=== PATIENT | female | born 1940 | race Caucasian/White ===

== ENCOUNTER 2024-07-28 21:05 | Observation (INO) | payer MEDICARE, SELFPAY ==
[2024-07-28 21:05] VITALS: BP 189/85; PULSE 95; RESP 16; TEMP 36.6; O2SAT 100; BMI 28.3
--- NOTE | 2024-07-28 21:18 | HMH.EDGENADL ---
Discharge Plan Disposition Patient Disposition: Admitted Clinical Impressions Clinical Impression: Weakness, Hyponatremia Discharge ED Provider: Manoj Lazo Adult HPI General Chief complaint: Weakness Stated complaint: Weakness Time Seen by Provider: 07/28/24 21:17 History of Present Illness HPI narrative: Patient is an 83-year-old past medical history of hypertension, previous brain cancer resection presenting for weakness. Patient said that she typically gets around with a walker but over the last couple of days she has become progressively more weak and said that today when she was trying to reach into her refrigerator she fell backward hitting her head on a table. She is unsure if she had loss of consciousness but does not think she did. She was unable to get up at the time and so she crawled into another room to get to a phone. When she got to a phone she called her family and EMS and EMS was able to get her up and said that she needed a lot of help to walk to the truck. At this time patient said that she is having a headache, but has had no other symptoms. Related Data Home Medications ?Medication ?Instructions ?Recorded ?Confirmed atenolol 50 mg tablet 50 mg PO DAILY 07/28/24 07/28/24 atorvastatin 40 mg tablet 40 mg PO DAILY 07/28/24 07/28/24 cyanocobalamin (vitamin B-12) 1,000 mcg PO DAILY 07/28/24 07/28/24 1,000 mcg tablet ferrous sulfate 325 mg (65 mg 325 mg PO DAILY 07/28/24 07/28/24 iron) tablet (FeroSul) hydrochlorothiazide 25 mg tablet 25 mg PO DAILY 07/28/24 07/28/24 lisinopril 2.5 mg tablet 2.5 mg PO DAILY 07/28/24 07/28/24 metformin 850 mg tablet 850 mg PO BID 07/28/24 07/28/24 omeprazole 40 mg capsule,delayed 40 mg PO DAILY 07/28/24 07/28/24 release Allergies Allergy/AdvReac Type Severity Reaction Status Date / Time Sulfa (Sulfonamide Allergy Intermediate Anaphylaxis Verified 07/28/24 21:35 Antibiotics) clindamycin Allergy Other Verified 07/29/24 00:32 nitrofurantoin (From Allergy Other Verified 07/29/24 00:32 Macrodantin) Penicillins Allergy Hives Verified 07/29/24 00:32 [facility] Disclaimer: The information contained in this section may have been updated after the patient was seen, as this information can be updated by other users. Social History (Updated 07/29/24 @ 00:27 by Orly Sargent RN) Smoking Status: Never smoker alcohol intake: never current occupational status: retired Travel in the last 8 weeks: None Have you lived/traveled outside [place] in past 30 days?: No Contact w/someone who lives/traveled outside [place] past 30 days?: No Exposure to someone with infectious disease in past 14 days?: No Do you have a fever (greater than 100.4 F or 38 C)?: No Have you tested positive for COVID-19: No Exposed to someone with COVID-19 in past 14 days?: No Do you have a sore throat?: No Do you have a cough?: No Do you have any weakness?: Yes Are you experiencing any nausea/vomitting?: No Do you have any diarrhea?: No Are you experiencing any unusual bleeding?: No Do you have any muscle aches/pain?: No Do you have any abdominal pain?: No Are you experiencing loss of taste or smell?: No ROS Obtained: Yes All systems reviewed & no additional complaints except as documented Physical Exam General General appearance: alert Eye Eye exam: Present normal appearance ENT ENT exam: Present normal exam Chest Chest inspection: Present symmetric chest wall rise Respiratory Respiratory exam: Present normal lung sounds bilaterally; Absent respiratory distress Cardiovascular Cardiovascular exam: Present regular rate Abdominal Exam Abdominal exam: Present soft; Absent tenderness, guarding or rebound Extremities Exam Extremities exam: Present full ROM; Absent tenderness Neurological Exam Neurological exam: Present alert, oriented X3 and other (Mild difficulty with speech(chronic), chronic facial droop, cranial nerves otherwise intact, no motor or sensory deficit) Psychiatric Psychiatric exam: Present normal affect Skin Skin exam: Present warm and normal color Medical Decision Making Medical Records Medical records reviewed: Yes I reviewed the patient's medical records. Screening: Per USPSTF and CDC recommendations, given the prevalence of disease in our region, it is our hospital?s policy to screen for HIV and viral Hepatitis for all patients aged 18 and over and those with ongoing risk factors. Yefri Inquiry Pt receiving controlled substance: No Vital Signs: 07/28/24 21:05 07/28/24 23:30 Temperature 97.9 F 97.8 F Temperature Source Oral Oral Pulse Rate 78 Pulse Rate [Left] 95 H Respiratory Rate 16 16 Blood Pressure 162/80 H Blood Pressure [Right Arm] 189/85 H Blood Pressure Mean [Right Arm] 119 02 Sat by Pulse Oximetry 100 Oxygen Delivery Method Room Air Room Air Lab Data Lab Results 07/28/24 21:30: WBC 8.1, RBC 5.09, Hgb 13.3, Hct 39.6, MCV 77.8 L, MCH 26.1 L, MCHC 33.6, RDW 24.8 H, Plt Count 317, MPV 8.9, Neut % (Auto) 61.5, Lymph % (Auto) 28.3, [place] % (Auto) 7.5, Eos % (Auto) 1.7, Baso % (Auto) 0.6, Neut # (Auto) 5.0, Lymph # (Auto) 2.3, [place] # (Auto) 0.6, Eos # (Auto) 0.1, Baso # (Auto) 0.1, PT 10.0 L, INR 0.88 L, APTT 27.9, Sodium 127 L, Potassium 4.4, Chloride 87 L, Carbon Dioxide 29, Anion Gap 15.4 H, BUN 16, Creatinine 0.60, Estimated Creat Clear 48, Estimated GFR 96, Est GFR ( Amer) 116, Glucose 202 H, Calcium 10.0, Total Bilirubin 0.4, AST 36, ALT 27, Alkaline Phosphatase 180 H, Total Creatine Kinase 152 H, Troponin I 0.02, Total Protein 7.1, Albumin 4.5, Globulin 2.6, Albumin/Globulin Ratio 1.7, Lipase 92, Urine Sodium 54.0, HIV Ag/Ab Combo Qual Negative 07/28/24 21:30 07/28/24 21:30 Orders (Tests/Meds): ED MEDICATIONS Generic Name Dose Route Start Last Admin Trade Name Freq PRN Reason Stop Dose Admin Acetaminophen 650 mg 07/28/24 23:31 Acetaminophen 325mg Tab PO 08/27/24 23:30 Q4HP PRN Fever or Mild Pain (1-3) Hydrocodone Bitart/Acetaminophen 1 tab 07/28/24 23:31 Hydrocodone/Apap 5/325 Mg Tablet PO 08/27/24 23:30 Q4HP PRN Mild to Moderate Pain (1-6) Sodium Chloride 1,000 mls @ 100 mls/hr 07/28/24 23:45 07/28/24 23:55 Sod Chlor 0.9% 1000ml Bag IV 08/27/24 23:44 100 mls/hr .Q10H HYUN Administration Ibuprofen 400 mg 07/28/24 23:31 Ibuprofen 400 Mg Tablet PO 08/27/24 23:30 Q6HP PRN Headache Insulin Human Lispro 0 unit 07/29/24 06:00 Humalog 100 Units/Ml 10ml Vial (Ssi) SUBCUT 08/28/24 05:59 ACHS HYUN Protocol Ondansetron HCl 4 mg 07/28/24 23:31 Ondansetron 4mg/2ml Vial IV 08/27/24 23:30 Q8HP PRN Nausea Sodium Chloride 10 ml 07/28/24 21:36 Sodium Chloride 0.9% 10ml Flush Syringe IV 08/27/24 21:35 NEEDED PRN Maintain IV Site Sodium Chloride 10 ml 07/28/24 23:31 Sodium Chloride 0.9% 10ml Flush Syringe IV 08/27/24 23:30 NEEDED PRN Maintain IV Site Discontinued Medications Generic Name Dose Route Start Last Admin Trade Name Freq PRN Reason Stop Dose Admin Lactated Ringer's 500 mls @ 999 mls/hr 07/28/24 22:56 07/28/24 23:48 Lactated Ringer's 500ml IV 07/28/24 23:26 Not Given .Q31M ONE ORDERS Category Date Time Status CT bony pelvis Stat Cat Scan 07/28/24 21:[address] cervical spine wo con Stat Cat Scan 07/28/24 21:[address] head/brain wo con Stat Cat Scan 07/28/24 21:[address] lumbar spine wo con Stat Cat Scan 07/28/24 21:[address] thoracic spine wo con Stat Cat Scan 07/28/24 21:37 Completed Consult to Case Management [CONS] Routine Cons 07/29/24 09:00 Active XR chest portable Stat Exams 07/28/24 21:37 Completed XR pelvis 1-2V Stat Exams 07/28/24 21:37 Completed Activated Partial Thrombo Time Stat Lab 07/28/24 21:30 Completed Basic Metabolic Panel AMLAB Lab 07/29/24 06:00 Ordered Basic Metabolic Panel AMLAB Lab 07/30/24 06:00 Ordered Basic Metabolic Panel AMLAB Lab 07/31/24 06:00 Ordered Basic Metabolic Panel AMLAB Lab 08/01/24 06:00 Ordered Basic Metabolic Panel AMLAB Lab 08/02/24 06:00 Ordered Complete Blood Count Auto Diff AMLAB Lab 07/29/24 06:00 Ordered Complete Blood Count Auto Diff AMLAB Lab 07/30/24 06:00 Ordered Complete Blood Count Auto Diff AMLAB Lab 07/31/24 06:00 Ordered Complete Blood Count Auto Diff AMLAB Lab 08/01/24 06:00 Ordered Complete Blood Count Auto Diff AMLAB Lab 08/02/24 06:00 Ordered Complete Blood Count Auto Diff Stat Lab 07/28/24 21:30 Completed Comprehensive Metabolic Panel Stat Lab 07/28/24 21:30 Completed Creatine Kinase Stat Lab 07/28/24 21:30 Completed HIV Combo Stat Lab 07/28/24 21:30 Completed Hep C Ab with Reflex to RNA Stat Lab 07/28/24 21:30 Received Lipase Stat Lab 07/28/24 21:30 Completed Prothrombin Time INR Stat Lab 07/28/24 21:30 Completed Sodium,Urine Random Routine Lab 07/28/24 21:30 Completed Troponin I Q3H Lab 07/29/24 00:45 Ordered Troponin I Q3H Lab 07/29/24 03:45 Ordered Troponin I Stat Lab 07/28/24 21:30 Completed UA [Urinalysis and Microscopic] Stat Lab 07/28/24 23:33 Ordered Urinalysis and Microscopic Routine Lab 07/28/24 23:37 Ordered ECG Request Stat Y 07/28/24 21:38 Ordered Medical Decision Narrative: In summary, this 83-year-old female presents to the emergency department today with generalized weakness. On initial evaluation patient is in no acute distress, hemodynamically stable and well-appearing. Patient has been becoming progressively more weak and have concern as she likely lives alone and had a fall today.. Differential diagnosis includes but is not limited to cranial hemorrhage, spinal injury, pelvic fracture, electrolyte abnormality, infection. Based on these concerns, I ordered labs and imaging. ECG personally interpreted demonstrates right bundle branch block, no ST elevations, sinus rhythm. Patient received lactated Ringer's, for treatment. Labs personally reviewed demonstrate hyponatremia, hypochloremia, hyperglycemia, mildly elevated creatinine kinase. XR personally interpreted demonstrates no dislocation or fracture. CT imaging personally interpreted demonstrate no dislocation or fracture, no intracranial hemorrhage. I had an interactive discussion with hospital medicine team and patient was admitted to their. On reassessment hemodynamically stable alert in no acute distress. Patient was admitted to the hospital medicine service due to multiple electrolyte abnormalities and concern for failure to thrive. Critical Care Critical Care Time Critical Care Time: No
--- NOTE | 2024-07-28 21:37 | CT_ITS ---
PROCEDURE INFORMATION: Exam: CT Thoracic Spine Without Contrast Exam date and time: 07/28/2024 10:00 PM Age: 83 years old Clinical indication: Injury or trauma; Additional info: Trauma, critical injury suspected TECHNIQUE: Imaging protocol: Computed tomography of the thoracic spine without contrast. Radiation optimization: All CT scans at this facility use at least one of these dose optimization techniques: automated exposure control; mA and/or kV adjustment per patient size (includes targeted exams where dose is matched to clinical indication); or iterative reconstruction. COMPARISON: CT CERVICAL SPINE WO CON 07/28/2024 9:58 PM FINDINGS: Bones/joints: No acute fracture. Normal alignment. Multilevel degenerative disc disease with multilevel disc height narrowing and endplate sclerosis. Multilevel mild anterior bridging osteophyte formation. Soft tissues: Unremarkable. IMPRESSION: No acute fracture or malalignment of the thoracic spine
--- NOTE | 2024-07-28 21:37 | XR_ITS ---
PROCEDURE INFORMATION: Exam: XR Chest Exam date and time: 07/28/2024 10:07 PM Age: 83 years old Clinical indication: Injury or trauma; Blunt trauma (contusions or hematomas) TECHNIQUE: Imaging protocol: Radiologic exam of the chest. Views: 1 view. COMPARISON: CT THORACIC SPINE WO CON 07/28/2024 10:00 PM FINDINGS: Lungs: Elevated right hemidiaphragm. No consolidation. Pleural spaces: Unremarkable. No pleural effusion. No pneumothorax. Heart/Mediastinum: Unremarkable. No cardiomegaly. Bones/joints: Unremarkable. IMPRESSION: No acute findings.
--- NOTE | 2024-07-28 21:37 | CT_ITS ---
PROCEDURE INFORMATION: Exam: CT Head Without Contrast Exam date and time: 07/28/2024 9:56 PM Age: 83 years old Clinical indication: Injury or trauma; Additional info: Trauma, critical injury suspected TECHNIQUE: Imaging protocol: Computed tomography of the head without contrast. Radiation optimization: All CT scans at this facility use at least one of these dose optimization techniques: automated exposure control; mA and/or kV adjustment per patient size (includes targeted exams where dose is matched to clinical indication); or iterative reconstruction. COMPARISON: CT HEAD/BRAIN WO CON 07/28/2024 9:56 PM FINDINGS: Brain: No intracranial hemorrhage. Generalized atrophic changes of the ventricles and subarachnoid spaces. Chronic small-vessel ischemic changes noted. No mass, mass effect or midline shift. Intracranial atherosclerotic changes are noted. Encephalomalacia in the inferior right cerebellum adjacent to the craniotomy site noted. Cerebral ventricles: See Brain finding. Paranasal sinuses: Visualized sinuses are unremarkable. No fluid levels. Mastoid air cells: Visualized mastoid air cells are well aerated. Bones: Craniotomy of the right posteroinferior occipital bone. Bony structures otherwise intact. No skull fracture identified. Soft tissues: Unremarkable. IMPRESSION: No acute intracranial abnormality. Chronic changes as above.
--- NOTE | 2024-07-28 21:37 | CT_ITS ---
PROCEDURE INFORMATION: Exam: CT Pelvis Without Contrast, Skeleton Exam date and time: 07/28/2024 10:05 PM Age: 83 years old Clinical indication: Injury or trauma; Additional info: Trauma, critical injury suspected TECHNIQUE: Imaging protocol: Computed tomography of the pelvis without contrast. Exam focused on the skeleton. Radiation optimization: All CT scans at this facility use at least one of these dose optimization techniques: automated exposure control; mA and/or kV adjustment per patient size (includes targeted exams where dose is matched to clinical indication); or iterative reconstruction. COMPARISON: CT LUMBAR SPINE WO CON 07/28/2024 10:03 PM FINDINGS: Bones/joints: Degenerative changes in the lower lumbar spine. No acute fracture. No dislocation. Soft tissues: Unremarkable. IMPRESSION: No evidence for pelvic fracture
--- NOTE | 2024-07-28 21:37 | CT_ITS ---
PROCEDURE INFORMATION: Exam: CT Cervical Spine Without Contrast Exam date and time: 07/28/2024 9:58 PM Age: 83 years old Clinical indication: Injury or trauma; Additional info: Trauma, critical injury suspected TECHNIQUE: Imaging protocol: Computed tomography of the cervical spine without contrast. Radiation optimization: All CT scans at this facility use at least one of these dose optimization techniques: automated exposure control; mA and/or kV adjustment per patient size (includes targeted exams where dose is matched to clinical indication); or iterative reconstruction. COMPARISON: CT CERVICAL SPINE WO CON 07/28/2024 9:58 PM FINDINGS: Bones: No acute fracture. Normal alignment. Multilevel disc osteophyte complexes and facet joint arthropathy resulting in varying degrees of neuroforaminal and central canal narrowing. Lungs: Lung apices are normal. Soft tissues: Unremarkable. IMPRESSION: No acute findings.
--- NOTE | 2024-07-28 21:37 | CT_ITS ---
PROCEDURE INFORMATION: Exam: CT Lumbar Spine Without Contrast Exam date and time: 07/28/2024 10:03 PM Age: 83 years old Clinical indication: Injury or trauma; Additional info: Trauma, critical injury suspected TECHNIQUE: Imaging protocol: Computed tomography of the lumbar spine without contrast. Radiation optimization: All CT scans at this facility use at least one of these dose optimization techniques: automated exposure control; mA and/or kV adjustment per patient size (includes targeted exams where dose is matched to clinical indication); or iterative reconstruction. COMPARISON: CT THORACIC SPINE WO CON 07/28/2024 10:00 PM FINDINGS: Bones/joints: No acute fracture. Normal alignment. Degenerative changes at L4-L5 and L5-S1 with vacuum phenomenon, disc height narrowing endplate sclerosis and facet joint arthropathy resulting in neuroforaminal and central canal narrowing. Degenerative changes also at L1-L2 and T12-L1 with vacuum phenomenon. Soft tissues: Unremarkable. IMPRESSION: No acute fracture or malalignment of the lumbar spine. Multilevel degenerative disc disease
--- NOTE | 2024-07-28 21:37 | XR_ITS ---
PROCEDURE INFORMATION: Exam: XR Pelvis Exam date and time: 07/28/2024 10:07 PM Age: 83 years old Clinical indication: Injury or trauma; Blunt trauma (contusions or hematomas); Bilateral; Pelvic region TECHNIQUE: Imaging protocol: Radiologic exam of the pelvis. Views: 1 or 2 view. COMPARISON: CT BONY PELVIS 07/28/2024 10:05 PM FINDINGS: Bones/joints: Unremarkable. No acute fracture. Soft tissues: Unremarkable. IMPRESSION: No acute findings.
--- NOTE | 2024-07-28 21:38 | ECG_ITS ---
APPROVED REPORT Exam: Resting ECG HR:84 bpm ECG Measurements Heart Rate 84 AXES MO 186 P 66 QRSd 134 QRS -48 QT 381 T 34 QTc 422 Conclusion SINUS RHYTHM RIGHT BUNDLE BRANCH BLOCK [120+ ms QRS DURATION, UPRIGHT V1, 40+ ms S IN I/aVL/V4/V5/V6] LEFT ANTERIOR FASCICULAR BLOCK [QRS AXIS <= -45, QR IN I, RS IN II] POSSIBLE SEPTAL MYOCARDIAL INFARCTION , PROBABLY OLD [30 ms Q WAVE IN V1/V2] ABNORMAL ECG UNCONFIRMED REPORT Electronically signed by : SUNIL BALDWIN, 07/29/2024 06:48:53
[2024-07-28 21:46] LABS: Basophils # 0.1 K/mm3 (0-0.2); Basophils % 0.6 % (0.1-2.0); Eosinophils # 0.1 K/mm3 (0.0-0.4); Eosinophils % 1.7 % (0.1-12.0); Hematocrit 39.6 % (37.0-47.0); Hemoglobin 13.3 g/dL (12.2-16.2); Lymphocytes # 2.3 K/mm3 (0.7-4.5); Lymphocytes % 28.3 % (10-50); Mean Corpuscular HGB Conc 33.6 g/dL (31.8-35.4); Mean Corpuscular Hemoglobin 26.1 pg (27.0-31.2); Mean Corpuscular Volume 77.8 fl (81-99); Mean Platelet Volume 8.9 fl (7.4-10.4); Monocytes # 0.6 K/mm3 (0.1-1.0); Monocytes % 7.5 % (1.7-9.3); Neutrophils % 61.5 % (37.0-80.0); Platelet Count 317 K/mm3 (142-424); Red Blood Count 5.09 M/mm3 (4.20-5.40); Red Cell Distribution Width 24.8 % (11.5-17.5); White Blood Count 8.1 K/mm3 (4.8-10.8)
--- NOTE | 2024-07-28 21:51 | PC.NURSE ---
pt went to rad.
[2024-07-28 21:56] LABS: Albumin Level 4.5 g/dl (3.5-5.0); Chloride 87 mmol/L (98-107); Potassium 4.4 mmoL/L (3.5-5.1); Sodium 127 mmol/L (136-145)
[2024-07-28 21:59] LABS: Alanine Aminotransferase 27 U/L (12-78); Albumin/Globulin Ratio 1.7 (1.1-1.8); Alkaline Phosphatase 180 U/L (38-126); Anion Gap 15.4 mEq/L (5-15); Aspartate Amino Transferase 36 U/L (14-36); Bilirubin,Total 0.4 mg/dl (0.2-1.3); Blood Urea Nitrogen 16 mg/dl (7-17); Carbon Dioxide 29 mmol/L (22.0-30.0); Creatinine Clearance Estimated 48 mL/min (50-200); Estimated Glomerular Filt Rate 96 ml/min (>60); GFR (African American) 116 ML/MIN (>60); Globulin 2.6 g/dL (1.3-3.2); Total Protein,Serum 7.1 g/dl (6.3-8.2)
[2024-07-28 22:00] LABS: Glucose 202 mg/dl (74-100); Lipase 92 U/L (23-300)
[2024-07-28 22:05] LABS: Activated Partial Thrombo Time 27.9 seconds (22.8-30.6); INR 0.88 (0.9-1.1)
[2024-07-28 22:11] LABS: Troponin I 0.02 ng/ml (0.00-0.034)
[2024-07-28 23:17] LABS: HIV Combo NEGATIVE (Negative)
[2024-07-28 23:30] VITALS: BP 162/80; PULSE 78; RESP 16; TEMP 36.6; O2SAT 98
[2024-07-28 23:30] LABS: Creatine Kinase 152 U/L (30-135)
--- NOTE | 2024-07-28 23:38 | P.HP_ITS ---
History of Present Illness *Admission Date: 07/28/24 *Reason for visit:: weakness *History of present illness: This is an 83-year-old female who has a past medical history significant for hypertension, meningioma with resection, diabetes [id number]-efoulpndq, hyperlipidemia, nephrolithiasis, paralyzed trachea, and iron deficiency anemia who presents after she had a mechanical ground-level fall and weakness. Due to patient's symptoms, she presented to the emergency room for evaluation. While in the emergency room, CT scan of the head, CT scan of the thoracic vertebrae, cervical spine, and pelvis were without any acute findings. Patient's serum sodium was 127 and she continues to have persistent weakness. As a result, patient has been admitted for further management. During my evaluation of the patient, patient states that she normally ambulates with a walker. She voices that she has had increasing weakness over the past couple days. While attempting to go to the refrigerator, patient fell backwards hitting her head. She is denying any syncopal episode but is currently complaining of a frontal lobe headache. Patient states she had to crawl to her house to get to the phone to call family. Patient had no obvious trauma to the head. She mentions that she has had a prior brain resection due to a meningioma which has left her face with some asymmetry and generalized weakness. Daughter at the bedside states she was at a nursing facility, yet her sisters took her out the nursing facilities patient states she is also being followed as an outpatient with speech pathology. She states that they do not recommend that she has thickened liquids that she is able to drink or liquids without a straw. She is currently denying any lightheadedness, dizziness, diplopia, blurred vision, unilateral upper or lower extremity weakness, lateral gaze deficit, slu rring of speech, chest pain, shortness of breath, dyspnea, nausea, vomiting, or diarrhea. Patient does states she has had decreased p.o. intake. Additional pertinent vitals obtained include a blood pressure of 189/85 (improved to 131/44), INR 0.88, sodium 127, chloride of 87, blood glucose of 202, alkaline phosphate of 180, and CPK 152. [facility] Disclaimer: The information contained in this section may have been updated after the patient was seen, as this information can be updated by other users. Social History Smoking Status: Never smoker alcohol intake: never current occupational status: retired Travel in the last 8 weeks: None Review of Systems Review of Systems Review of systems:: pertinent systems reviewed and negative unless documented below Constitutional Constitutional: Reports frequent falls, Reports headache(s) and Reports weakness Eyes Eyes: Reports system reviewed and no additional complaints, except as documented ENT Ears, Nose, Mouth, and Throat: Reports system reviewed and no additional complaints, except as documented and Reports headache(s) *Cardiovascular Cardiovascular: Reports system reviewed and no additional complaints, except as documented *Respiratory Respiratory: Reports system reviewed and no additional complaints, except as documented *Gastrointestinal Gastrointestinal: Reports system reviewed and no additional complaints, except as documented *Genitourinary Genitourinary: Reports urinary incontinence *Musculoskeletal Musculoskeletal: Reports muscle weakness Integumentary/Breasts Skin/Breast: Reports system reviewed and no additional complaints, except as documented *Neurologic Neurologic: Reports frequent falls, Reports headache(s) and Reports weakness Psychiatric Psychiatric: Reports system reviewed and no additional complaints, except as documented Endocrine Endocrine: Reports system reviewed and no additional complaints, except as documented Hematologic/Lymphatic Hematologic/Lymphatic: Reports system reviewed and no additional complaints, except as documented Allergic/Immunologic Allergic/Immunologic: Reports system reviewed and no additional complaints, except as documented Meds Home Medications and Allergies Home Medications ?Medication ?Instructions ?Recorded ?Confirmed ?Type atenolol 50 mg tablet 50 mg PO DAILY 07/28/24 07/28/24 History atorvastatin 40 mg tablet 40 mg PO DAILY 07/28/24 07/28/24 History cyanocobalamin (vitamin B-12) 1,000 mcg PO DAILY 07/28/24 07/28/24 History 1,000 mcg tablet ferrous sulfate 325 mg (65 mg 325 mg PO DAILY 07/28/24 07/28/24 History iron) tablet (FeroSul) hydrochlorothiazide 25 mg tablet 25 mg PO DAILY 07/28/24 07/28/24 History lisinopril 2.5 mg tablet 2.5 mg PO DAILY 07/28/24 07/28/24 History metformin 850 mg tablet 850 mg PO BID 07/28/24 07/28/24 History omeprazole 40 mg capsule,delayed 40 mg PO DAILY 07/28/24 07/28/24 History release New Prescriptions to Start Prescriptions: Allergies Allergy/AdvReac Type Severity Reaction Status Date / Time Sulfa (Sulfonamide Allergy Intermediate Anaphylaxis Verified 07/28/24 21:35 Antibiotics) Exam Data for Last 24 hours Vital signs and Labs for Last 24 Hours: Temp Pulse Resp BP Pulse Ox O2 Del Method 97.9 F 95 H 16 189/85 H 100 Room Air 07/28/24 21:05 07/28/24 21:05 07/28/24 21:05 07/28/24 21:05 07/28/24 21:05 07/28/24 21:05 Laboratory Results - last 24 hr 07/28/24 21:30: WBC 8.1, RBC 5.09, Hgb 13.3, Hct 39.6, MCV 77.8 L, MCH 26.1 L, MCHC 33.6, RDW 24.8 H, Plt Count 317, MPV 8.9, Neut % (Auto) 61.5, Lymph % (Auto) 28.3, [place] % (Auto) 7.5, Eos % (Auto) 1.7, Baso % (Auto) 0.6, Neut # (Auto) 5.0, Lymph # (Auto) 2.3, [place] # (Auto) 0.6, Eos # (Auto) 0.1, Baso # (Auto) 0.1, PT 10.0 L, INR 0.88 L, APTT 27.9, Sodium 127 L, Potassium 4.4, Chloride 87 L, Carbon Dioxide 29, Anion Gap 15.4 H, BUN 16, Creatinine 0.60, Estimated Creat Clear 48, Estimated GFR 96, Est GFR ( Amer) 116, Glucose 202 H, Calcium 10.0, Total Bilirubin 0.4, AST 36, ALT 27, Alkaline Phosphatase 180 H, Total Creatine Kinase 152 H, Troponin I 0.02, Total Protein 7.1, Albumin 4.5, Globulin 2.6, Albumin/Globulin Ratio 1.7, Lipase 92, HIV Ag/Ab Combo Qual Negative I & O for Last 24 hours: Intake & Output 07/25/24 07/26/24 07/27/24 07/28/24 23:59 23:59 23:59 23:59 Weight 70.307 kg Constitutional Constitutional: no acute distress and cooperative *Routine HEENT Exam Head: Present normocephalic Eye: Present EOMI ENT: Present mucous membranes moist *Routine Neck Exam Neck: Present supple, full ROM and trachea midline *Routine Respiratory Exam Respiratory: Present CTA bilaterally, able to speak in complete sentences and symmetric chest movement *Routine Cardiovascular Exam Cardiovascular: Present RRR, Normal S1 and Normal S2 *Routine Abdominal Exam Abdominal: Present soft and normoactive bowel sounds *Routine Rectal Exam Rectal:: deferred *Routine Genitalia Exam Genitalia:: deferred *Routine Extremities Exam Extremities: Present full ROM and normal capillary refill Routine Back/Spine/Pelvis Exam Back/Spine: Present full ROM *Routine Skin Exam Skin: Present intact, dry and warm *Routine Neurological Exam Neurological: Present oriented X3, CN II-XII intact, moving all extremities and normal speech Comments: Patient has asymmetry of smile which is normal for her Routine Psychiatric Exam Psychiatric: Present normal affect, normal thought process, cooperative, good insight and good judgment H&P: Result Impressions This is an 83-year-old female who is presenting with generalized weakness found to have a subtherapeutic sodium. Patient is mildly dehydrated. Prior history of meningioma resection. Patient lives alone and there is a significant concern for safety. Patient is amenable to rehab if necessary Assessment and Plan *Assessment and plan (1) Hyponatremia: Start date: 07/28/24 Start time: 23:51 Status: Acute Category: Medical Code(s): E87.1 - Hypo-osmolality and hyponatremia Plan: -Corrected serum sodium is 129 -Will give normal saline at 100 mL an hour -Will monitor serum sodium and would not allow to increase more than 8 mill equivalents in 24 hours times span -Obtain urine sodium (2) Dehydration: Start date: 07/28/24 Start time: 23:52 Status: Acute Category: Medical Code(s): E86.0 - Dehydration Plan: -Normal saline at 100 mL an hour -Monitor intake and output (3) Weakness: Start date: 07/28/24 Start time: 23:53 Status: Acute Category: Medical Code(s): R53.1 - Weakness Plan: -No current acute pathology seen on spine images (thoracic/cervical) -Currently denied any saddle paresthesia -Denying any loss of bowel or bladder -Will have physical therapy work with patient -Occupational Therapy -Consult upper caser for possible home health or rehab placement (4) Falls: Start date: 07/28/24 Start time: 23:54 Status: Acute Category: Medical Code(s): R29.6 - Repeated falls Plan: -Place patient on fall precautions (5) KORI (iron deficiency anemia): Start date: 07/28/24 Start time: 23:54 Status: Acute Qualifiers: Iron deficiency anemia type: inadequate dietary iron intake Qualified Code(s): D50.8 - Other iron deficiency anemias Category: Medical Code(s): D50.9 - Iron deficiency anemia, unspecified Plan: -Will continue oral iron supplementation (6) Hyperglycemia: Start date: 07/28/24 Start time: 23:54 Status: Acute Category: Medical Code(s): R73.9 - Hyperglycemia, unspecified Plan: -Most likely in the setting of type 2 diabetes -Will hold patient's metformin in the event she needs a CT scan with contrast -Sliding scale insulin before meals and at bedtime (7) Elevated liver enzymes: Start date: 07/28/24 Start time: 23:55 Status: Acute Category: Medical Code(s): R74.8 - Abnormal levels of other serum enzymes Plan: -Can follow-up as outpatient with primary care physician Plan Admit patient to the MedSurg unit in a observation status; patient will require 24 to 48 hours in hospital If weakness does not improve or worsens will consider MRI of the brain with and without Up to chair twice daily SCD to bilateral lower extremity Fall precautions Will straight cath x 1 obtain urinalysis/urine culture Cardiac/1800 ADA diet CBC/BMP daily Patient CPK was mildly elevated will obtain repeat in the a.m. 400 mg of ibuprofen every 6 hours as needed headache 5 mg [place] p.o. every 4 hours as needed moderate pain 4 mg Zofran IV push to 8 hours. Nausea vomiting I will discuss this case with attending physician Dr. Ma and the look for tomorrow put
--- NOTE | 2024-07-28 23:49 | PC.NURSE ---
pt arrived to floor via stretcher from ED at 2348.
[2024-07-28] MEDS: 0.9 % SODIUM CHLORIDE 1000ML 1,000 ML 100 ML IV (23:55)
[2024-07-29] VITALS: BP 151/76; PULSE 85; RESP 18; TEMP 36.6; O2SAT 95
[2024-07-29 01:57] LABS: Troponin I 0.03 ng/ml (0.00-0.034)
[2024-07-29 04:00] VITALS: BP 131/65; PULSE 82; RESP 17; TEMP 36.6; O2SAT 94; BMI 27.2
[2024-07-29 04:36] LABS: Troponin I 0.02 ng/ml (0.00-0.034)
[2024-07-29 05:36] LABS: Microscopic, Urine URINE MICROSCOPIC (MICROSCOPIC)
[2024-07-29 05:39] LABS: Appearance,Urine CLEAR (Clear); Bilirubin,Urine Negative (Negative); Blood, Urine Negative (Negative); Color,Urine YELLOW (Yellow); Glucose,Urine (UA) Negative (Negative); Ketones,Urine Negative (Negative); Leukocyte Esterase,Urine Negative (Negative); Nitrate,Urine Negative (Negative); PH,Urine 6.5 (5.0-8.5); Protein,Urine Negative (Negative); Urobilinogen,Urine 0.2 EU/dl (0.2)
[2024-07-29 05:48] LABS: Bacteria,Urine Trace /lpf
[2024-07-29] MEDS: IBUPROFEN 400 MG TABLET PO (05:56)
[2024-07-29 06:09] LABS: POC Glucose,Bedside 138 (70-110)
[2024-07-29 07:34] LABS: Basophils # 0.1 K/mm3 (0-0.2); Basophils % 0.8 % (0.1-2.0); Eosinophils # 0.1 K/mm3 (0.0-0.4); Eosinophils % 1.7 % (0.1-12.0); Lymphocytes # 2.5 K/mm3 (0.7-4.5); Lymphocytes % 32.9 % (10-50); Mean Corpuscular Hemoglobin 26.4 pg (27.0-31.2); Mean Corpuscular Volume 77.8 fl (81-99); Monocytes # 0.6 K/mm3 (0.1-1.0); Monocytes % 8.3 % (1.7-9.3); Neutrophils # 4.2 K/mm3 (1.8-7.8); Neutrophils % 55.9 % (37.0-80.0); Platelet Count 290 K/mm3 (142-424); Red Cell Distribution Width 24.4 % (11.5-17.5); White Blood Count 7.6 K/mm3 (4.8-10.8)
[2024-07-29 07:53] LABS: Anion Gap 10.1 mEq/L (5-15); Blood Urea Nitrogen 14 mg/dl (7-17); Calcium 9.8 mg/dl (8.4-10.2); Carbon Dioxide 27 mmol/L (22.0-30.0); Chloride 95 mmol/L (98-107); Creatinine Clearance Estimated 46 mL/min (50-200); Estimated Glomerular Filt Rate 96 ml/min (>60); GFR (African American) 116 ML/MIN (>60); Glucose 132 mg/dl (74-100); Potassium 4.1 mmoL/L (3.5-5.1); Sodium 128 mmol/L (136-145)
[2024-07-29 08:00] VITALS: BP 135/69; PULSE 77; RESP 18; TEMP 36.6; O2SAT 96
[2024-07-29 09:05] LABS: Creatine Kinase 109 U/L (30-135)
--- NOTE | 2024-07-29 09:20 | HMH.PHAINT1 ---
Pharmacy Intervention Comments: MEDICATION RECONCILIATION COMPLETE USING EXTERNAL PHARMACY FILL HISTORY.
[2024-07-29 09:36] LABS: Hemoglobin 11.9 g/dL (12.2-16.2)
[2024-07-29 10:11] LABS: Iron 63 ug/dL (37-170)
[2024-07-29 10:20] LABS: Total Iron Binding Capacity 342 ug/dL (265-497)
[2024-07-29] MEDS: 0.9 % SODIUM CHLORIDE 1000ML 1,000 ML 100 ML IV (10:35)
[2024-07-29 10:46] VITALS: BP 150/68; BP 166/107; BP 205/98; PULSE 78; PULSE 88
[2024-07-29 10:47] LABS: Ferritin 16.3 ng/ml (11.1-264)
[2024-07-29 10:54] LABS: Coronavirus 19, PCR Not Detected (NotDetected); Human Rhinovirus Not Detected (NotDetected); Influenza A, PCR Not Detected (NotDetected); Influenza B, PCR Not Detected (NotDetected); Respiratory Syncytial Virus Not Detected (NotDetected)
[2024-07-29 11:01] LABS: Vitamin B12 748 pg/mL (239-931)
[2024-07-29] MEDS: humaLOG 100 UNITS/ML 10ML VIAL (SSI) SUBCUT ×2 (11:46→16:33)
[2024-07-29 12:00] LABS: POC Glucose,Bedside 164 (70-110)
[2024-07-29 12:51] LABS: Folate 6.43 ng/mL
--- NOTE | 2024-07-29 15:53 | EXP.PN ---
Subjective *Date: 07/29/24 *Time: 17:05 Exam Data for Last 24 hours Vital signs and Labs for Last 24 Hours: Temp Pulse Resp BP Pulse Ox O2 Del Method 98 F 78 18 150/68 H 96 Room Air 07/29/24 08:00 07/29/24 10:46 07/29/24 08:00 07/29/24 10:46 07/29/24 08:00 07/29/24 15:00 Laboratory Results - last 24 hr 07/28/24 21:30: WBC 8.1, RBC 5.09, Hgb 13.3, Hct 39.6, MCV 77.8 L, MCH 26.1 L, MCHC 33.6, RDW 24.8 H, Plt Count 317, MPV 8.9, Neut % (Auto) 61.5, Lymph % (Auto) 28.3, [place] % (Auto) 7.5, Eos % (Auto) 1.7, Baso % (Auto) 0.6, Neut # (Auto) 5.0, Lymph # (Auto) 2.3, [place] # (Auto) 0.6, Eos # (Auto) 0.1, Baso # (Auto) 0.1, PT 10.0 L, INR 0.88 L, APTT 27.9, Sodium 127 L, Potassium 4.4, Chloride 87 L, Carbon Dioxide 29, Anion Gap 15.4 H, BUN 16, Creatinine 0.60, Estimated Creat Clear 48, Estimated GFR 96, Est GFR ( Amer) 116, Glucose 202 H, Calcium 10.0, Total Bilirubin 0.4, AST 36, ALT 27, Alkaline Phosphatase 180 H, Total Creatine Kinase 152 H, Troponin I 0.02, Total Protein 7.1, Albumin 4.5, Globulin 2.6, Albumin/Globulin Ratio 1.7, Lipase 92, Urine Sodium 54.0, HIV Ag/Ab Combo Qual Negative 07/29/24 00:55: Troponin I 0.03 07/29/24 01:45: Urine Color Yellow, Urine Appearance Clear, Urine pH 6.5, Ur Specific [place] 1.010, Urine Protein Negative, Urine Glucose (UA) Negative, Urine Ketones Negative, Urine Blood Negative, Urine Nitrate Negative, Urine Bilirubin Negative, Urine Urobilinogen 0.2, Ur Leukocyte Esterase Negative, Urine RBC None, Urine WBC None, Ur Squamous Epith Cells None, Urine Bacteria Trace 07/29/24 03:45: Troponin I 0.02 07/29/24 05:52: POC Glucose 138 H 07/29/24 07:15: WBC 7.6, RBC 4.50, Hgb 11.9 L D, Hct 35.0 L, MCV 77.8 L, MCH 26.4 L, MCHC 34.0, RDW 24.4 H, Plt Count 290, MPV 9.0, Neut % (Auto) 55.9, Lymph % (Auto) 32.9, [place] % (Auto) 8.3, Eos % (Auto) 1.7, Baso % (Auto) 0.8, Neut # (Auto) 4.2, Lymph # (Auto) 2.5, [place] # (Auto) 0.6, Eos # (Auto) 0.1, Baso # (Auto) 0.1, Sodium 128 L, Potassium 4.1, Chloride 95 L, Carbon Dioxide 27, Anion Gap 10.1, BUN 14, Creatinine 0.60, Estimated Creat Clear 46, Estimated GFR 96, Est GFR ( Amer) 116, Glucose 132 H D, Calcium 9.8, Total Creatine Kinase 109 D 07/29/24 07:25: Iron 63, TIBC 342, Iron Saturation 18.44044, Ferritin 16.3, Vitamin B12 748, Folate 6.43, TSH 3.40 07/29/24 10:49: SARS-CoV-2 (PCR) Not detected, Influenza Type A (PCR) Not detected, Influenza Type B (PCR) Not detected, RSV (PCR) Not detected, Rhinovirus (PCR) Not detected 07/29/24 11:06: POC Glucose 164 H I & O for Last 24 hours: Intake & Output 07/26/24 07/27/24 07/28/24 07/29/24 23:59 23:59 23:59 23:59 Intake Total 500 / 500 1103 / 1103 Output Total 450 / 450 Balance 500 / 50 653 / 653 Weight 70.307 kg 67.188 kg Constitutional Constitutional: no acute distress *Routine HEENT Exam Head: Present normocephalic Eye: Present EOMI and PERRL ENT: Present mucous membranes moist *Routine Neck Exam Neck: Present supple; Absent lymphadenopathy *Routine Respiratory Exam Respiratory: Present CTA bilaterally *Routine Cardiovascular Exam Cardiovascular: Present RRR *Routine Abdominal Exam Abdominal: Present soft and normoactive bowel sounds; Absent tenderness *Routine Extremities Exam Extremities: Absent cyanosis, clubbing or edema Comments: Motor strength 4/5 in bilateral upper and lower extremities. *Routine Skin Exam Skin: Present warm; Absent rash *Routine Neurological Exam Neurological: Present alert and oriented X3 Assessment and Plan *Assessment and plan (1) Hyponatremia: Status: Acute Category: Medical Code(s): E87.1 - Hypo-osmolality and hyponatremia (2) Weakness: Status: Acute Category: Medical Code(s): R53.1 - Weakness (3) KORI (iron deficiency anemia): Status: Acute Qualifiers: Iron deficiency anemia type: inadequate dietary iron intake Qualified Code(s): D50.8 - Other iron deficiency anemias Category: Medical Code(s): D50.9 - Iron deficiency anemia, unspecified (4) Falls: Status: Acute Category: Medical Code(s): R29.6 - Repeated falls (5) Weakness: Status: Acute Category: Medical Code(s): R53.1 - Weakness (6) Dehydration: Status: Acute Category: Medical Code(s): E86.0 - Dehydration (7) Hyponatremia: Status: Acute Category: Medical Code(s): E87.1 - Hypo-osmolality and hyponatremia Plan Sia Dorsey is a 83-year-old female who was admitted for worsening generalized weakness and recurrent falls at home. #Generalized weakness #Recurrent falls ? Patient reports 1 week onset of progressive generalized weakness, with 2 falls at home recently. ? She states usually uses a walker at home but has been having increasing difficulty ambulating. ? Cervical, lumbar, thoracic spine CTs are unremarkable. No focal neurological deficits. No signs of cauda equina syndrome. ? Other than hyponatremia 128 and mild iron deficiency anemia, other workup has been unremarkable including CBC, CMP, TFTs, folate, B12, UA, respiratory panel, CXR. ? Follow-up blood cultures. ? PT/OT consulted, pending recommendations. #Hyponatremia ? Initial sodium 127, improved to 128 today. Takes hydrochlorothiazide. Is also not been eating that well. ? Will hold hydrochlorothiazide, encourage oral intake. ? Will consider serum, urine osmolality test if minimal improvement. Low suspicion for SIADH at this time. #Iron deficiency anemia ? Ferritin low normal at 16.3. Other iron studies normal. ? Will give IV Venofer. ? Continue home ferrous sulfate. ? MiraLAX daily. #Hypertension ? Resume home lisinopril, hold hydrochlorothiazide in the setting of hyponatremia. #History of meningioma s/p resection #Chronic right-sided facial droop ? Patient has had a chronic right-sided facial droop since meningioma resection. DNI DVT prophylaxis: Lovenox 40 mg
[2024-07-29 16:00] VITALS: BP 159/87; PULSE 80; RESP 18; TEMP 36.8; O2SAT 96
[2024-07-29 16:14] LABS: POC Glucose,Bedside 289 (70-110)
[2024-07-29] MEDS: METFORMIN 850 MG PO (16:33)
[2024-07-29] MEDS: ENOXAPARIN 40MG/0.4ML SYRINGE 40 MG SUBCUT (16:33)
[2024-07-29] MEDS: LISINOPRIL 2.5MG TABLET 2.5 MG PO (16:47)
--- NOTE | 2024-07-29 18:10 | PC.NURSE ---
pt resting supine in bed. a&ox4. tolerating RA with sats >90%. no complaints of pain this shift. home medications ordered. orthostatic bp taken and recorded. fsbs @1100 164 and @1630 289. treated per sep. no needs at this time. call light within reach.
[2024-07-29 20:00] VITALS: BP 189/83; PULSE 82; RESP 18; TEMP 36.8; O2SAT 96
[2024-07-29] MEDS: ATORVASTATIN 40MG TABLET 40 MG PO (20:24)
[2024-07-29] MEDS: PANTOPRAZOLE 40MG TABLET 40 MG PO (20:24)
[2024-07-30] VITALS: BP 159/93; PULSE 78; RESP 17; TEMP 36.8; O2SAT 96
[2024-07-30 04:00] VITALS: BMI 26.0
[2024-07-30 05:34] LABS: POC Glucose,Bedside 107 (70-110)
[2024-07-30 05:34] LABS: POC Glucose,Bedside 98 (70-110)
[2024-07-30] MEDS: IBUPROFEN 400 MG TABLET PO (05:51)
[2024-07-30 08:00] VITALS: BP 120/90; PULSE 62; RESP 18; TEMP 36.8; O2SAT 95
[2024-07-30 08:16] LABS: Basophils # 0.1 K/mm3 (0-0.2); Basophils % 1.2 % (0.1-2.0); Eosinophils # 0.2 K/mm3 (0.0-0.4); Eosinophils % 2.8 % (0.1-12.0); Hematocrit 35.6 % (37.0-47.0); Hemoglobin 11.6 g/dL (12.2-16.2); Lymphocytes # 2.3 K/mm3 (0.7-4.5); Lymphocytes % 35.1 % (10-50); Mean Corpuscular HGB Conc 32.6 g/dL (31.8-35.4); Mean Corpuscular Hemoglobin 25.9 pg (27.0-31.2); Mean Corpuscular Volume 79.5 fl (81-99); Mean Platelet Volume 9.8 fl (7.4-10.4); Monocytes # 0.6 K/mm3 (0.1-1.0); Monocytes % 8.6 % (1.7-9.3); Neutrophils # 3.4 K/mm3 (1.8-7.8); Platelet Count 307 K/mm3 (142-424); Red Blood Count 4.48 M/mm3 (4.20-5.40); White Blood Count 6.5 K/mm3 (4.8-10.8)
[2024-07-30 08:23] LABS: Red Cell Distribution Width 25.3 % (11.5-17.5)
[2024-07-30] MEDS: METFORMIN 850 MG PO ×2 (08:32→17:08)
[2024-07-30] MEDS: IRON SUCROSE COMPLEX 200 MG in 0.9 % SODIUM CHLORIDE 100 ML 220 MG IV (08:32)
[2024-07-30] MEDS: FERROUS SULFATE 325MG TABLET 325 MG PO (08:33)
[2024-07-30] MEDS: ENOXAPARIN 40MG/0.4ML SYRINGE 40 MG SUBCUT (08:33)
[2024-07-30] MEDS: LISINOPRIL 10MG TABLET 10 MG PO (08:33)
[2024-07-30 08:37] LABS: Albumin Level 3.5 g/dl (3.5-5.0); Chloride 100 mmol/L (98-107); Sodium 133 mmol/L (136-145)
[2024-07-30 08:40] LABS: Alanine Aminotransferase 23 U/L (12-78); Albumin/Globulin Ratio 1.5 (1.1-1.8); Alkaline Phosphatase 124 U/L (38-126); Aspartate Amino Transferase 30 U/L (14-36); Bilirubin,Total 0.3 mg/dl (0.2-1.3); Blood Urea Nitrogen 11 mg/dl (7-17); Calcium 9.2 mg/dl (8.4-10.2); Carbon Dioxide 27 mmol/L (22.0-30.0); Creatinine Clearance Estimated 44 mL/min (50-200); Estimated Glomerular Filt Rate 96 ml/min (>60); GFR (African American) 116 ML/MIN (>60); Globulin 2.4 g/dL (1.3-3.2); Glucose 111 mg/dl (74-100); Total Protein,Serum 5.9 g/dl (6.3-8.2)
[2024-07-30 08:41] LABS: Magnesium 1.6 mg/dl (1.6-2.3)
--- NOTE | 2024-07-30 10:49 | HMH.PTEV ---
Physical Therapy Evaluation Rehab PT IP Evaluation Start: 07/29/24 09:00 Freq: ONCE Status: Active Protocol: Document 07/30/24 10:44 GRACE (Rec: 07/30/24 10:48 [facility] [id number]) Subjective/History History History 83-year-old female who has a past medical history significant for hypertension, meningioma with resection, diabetes [id number]-[id number] , hyperlipidemia, nephrolithiasis, paralyzed trachea, and iron deficiency anemia who presents after she had a mechanical ground-level fall and weakness. She reports she lives alone, uses a RW for all ambulation, and has no WILLARD the home. Subjective Subjective She reports she feels weak and had difficulty getting to the [facility] [place] with nsg earlier. She does agree to mobility assessment. Rehab PT IP Eval Objective Appearance Patient Behavior Appropriate Patient Orientation Person,Place,Time Difficulty following instructions none Speech Pattern Clear Ambulation Patient Able to Ambulate Yes Ambulation Observation IP General Gait Pattern Observation Wide Based Gait,Shuffling Step Ambulation Distance (feet) 8 Ambulation Assistive Device Rolling Walker Ambulation Ability Minimal x 1 (25% assist) Balance Ability to Arise Able, uses arms to help Sitting Balance Steady, safe Standing Balance Unsteady Dynamic Sitting Balance Ability Good Dynamic Standing Balance Ability Poor Transfers Bed Transfer Ability Minimal x 1 (25% assist) Chair Transfer Ability Minimal x 1 (25% assist) Sit to Stand Bed Transfer Ability Minimal x 1 (25% assist) Sit to Stand Chair Transfer Ability Minimal x 1 (25% assist) Rehab PT IP prob,goals,plan Problems Date of Evaluation: 07/30/24 PT IP Problems Bed Mobility,Transfers,Gait Rehab Potential Rehab Potential Good Plan PT Intervention Plan Bed Mobility,Transfers,Gait, Therapeutic Exercise PT Plan Frequency Daily Duration LOS Discharge Goals Bed Transfer Ability Contact Guard/Hand Hold Sit to Stand Chair Transfer Ability Contact Guard/Hand Hold Ambulation Assistive Device Large Base Quad Cane Ambulation Distance (feet) 25 Discharge Plan PT Discharge Plan Pt is currently most appropriate for rehab placement once medically stable for d/c. Skilled therapy is indicated to improve transfer ability, improve balance, and improve ambulation in order to return pt to [facility]. PHYSICIAN CERTIFICATION: I certify the specified therapy services for Sia Granado are required, authorized, and reviewed every 30 days.
--- NOTE | 2024-07-30 11:01 | HMH.OTEV ---
OT Inpatient Evaluation Rehab OT IP Evaluation Start: 07/29/24 09:00 Freq: ONCE Status: Active Protocol: Document 07/30/24 10:57 [facility] (Rec: 07/30/24 11:01 [facility] [id number]) Rehab OT IP Assessment Subjective History Pt oriented x 3 on arrival. Pt agreeable to engage in therapy evaluation. Pt is an 83-year-old female who has a past medical history significant for hypertension, meningioma with resection, diabetes ulz-izpvuyh-[id number] , hyperlipidemia, nephrolithiasis, paralyzed trachea, and iron deficiency anemia who presents after she had a mechanical ground-level fall and weakness. She reports she lives alone, uses a RW for all functional transfers, and has no WILLARD the home. Pt also claims to be independent with all ADLs, but is only able to complete sponge baths. Her family assists with all IADLs. She is able to cook small simple meals independently. She no longer drives. [ End ] Subjective Pt reporting she has not been up since being admitted other than one [place] [facility] [place] Pt expressed she had difficulty with this transfer. Objective Patient Orientation Person,Place,Birthday Right Upper Extremity Gross ROM Min Limitation <25% Left Upper Extremity Gross ROM Min Limitation <25% Shoulder ROM Limitations Muscle Weakness Elbow ROM Limitations Muscle Weakness Wrist Limitations of Range of Motion Muscle Weakness Bed Mobility bed mobility-scooting,bed mobility - supine/sit Assist Level Minimal x 1 (25% assist) Transfer Training Sit/Stand Transfer Assist Level Minimal x 2 (25% assist) Chair Transfer Ability Minimal x 2 (25% assist) Chair Transfer Technique Sit to/from Ambulatory Chair Transfer Assistive Devices Rolling Walker Lower Body Dressing Ability Moderate Assistance Rehab OT IP prob,goals,plan Problems Date of Evaluation: 07/30/24 OT IP Problems Bed Mobility,Transfers,Balance ,Self care,Safety Rehab Potential Rehab Potential Good Equipment Needs Assistive Devices Rolling / Wheeled Walker Plan OT intervention Plan Bed Mobility,Transfers,Balance ,Self care,Safety,Therapeutic Exercise OT Plan Frequency Daily Duration LOS Discharge Goals Bed Mobility Ability Standby Assistance Sit to Stand Chair Transfer Ability Supervision/Stand by Chair Transfer Ability Contact Guard/Hand Hold Chair Transfer Technique Sit to/from Ambulatory Chair Transfer Assistive Devices Rolling Walker Feeding Ability Assist with Tray Set Up Lower Body Dressing Ability Minimal Assistance Upper Body Dressing Ability Standby Assistance Bathing Ability Minimal Assistance Performing Toilet Hygiene Ability Minimal Assistance Overall Commode/Toilet Transfer Ability Contact Guard Commode/Toilet Transfer Technique Sit to/from Ambulatory Commode/Toilet Transfer Assistive Toilet Rails,Grab Bars Devices Oral Care Assist Standby Assistance Discharge Plan OT Discharge Plan Pt will continue to be seen for OT services while at [facility]. Pt would benefit most from short term rehab at SNF following discharge. Continued skilled therapy is important in order for patient to improve strength, safety, endurance, ADL independence, and functional transfers to reach PLOF. Eval Complexity Eval Charge Codes 06298 - Moderate Complexity PHYSICIAN CERTIFICATION: I certify the specified therapy services for Sia Granado are required, authorized, and reviewed every 30 days.
--- NOTE | 2024-07-30 11:14 | SW/DCPLANNER ---
Addendum entered by [facility] 07/31/24 13:22: I have updated patient's family in regards to discharge plans to [facility] level of care today. Addendum entered by [facility] 07/31/24 11:09: Patient has been accepted/approved per Carmen castellanos/ [facility]. Addendum entered by [facility] 07/31/24 10:36: [facility] is able to accept this patient and precert will be started today. I will update patient/family and MD. Addendum entered by [facility] 07/30/24 12:47: Per patient's request I did contact other daughter (Teressa [phone]) and discuss discharge planning. Patient and family members agreeable for information to be faxed to [facility] at this time. Addendum entered by [facility] 07/30/24 12:08: I was able to make contact with patient. Patient is agreeable to SNF at [facility]: information will be faxed today. I will continue to follow up with patient and MD. Original Note: I attempter to contact patient this AM regarding plans once medically stable for discharge. No answer at this time VM left. I did speak with daughter via phone whom stated patient did go to [facility] in the past for rehab, transitioned to Assisted Living but then family signed her out and took her home. PT/OT evaluated patient and recommended SNF level of care at discharge. I will continue to attempt contact with patient. Discharge date is unknown at this time.
[2024-07-30] MEDS: humaLOG 100 UNITS/ML 10ML VIAL (SSI) SUBCUT (11:30)
[2024-07-30 12:00] VITALS: BP 131/65; PULSE 82; RESP 18; TEMP 36.5; O2SAT 94
[2024-07-30 15:57] LABS: POC Glucose,Bedside 112 (70-110)
[2024-07-30 15:57] LABS: POC Glucose,Bedside 201 (70-110)
[2024-07-30 16:00] VITALS: BP 126/73; PULSE 82; RESP 20; TEMP 36.6; O2SAT 97
[2024-07-30 17:03] LABS: POC Glucose,Bedside 99 (70-110)
--- NOTE | 2024-07-30 17:04 | P.PN_ITS ---
Subjective *Date: 07/30/24 *Time: 17:04 Interval history: Doing well today, working with physical therapy who recommended SNF placement. Pleasant and conversational. Exam Data for Last 24 hours Vital signs and Labs for Last 24 Hours: Temp Pulse Resp BP Pulse Ox O2 Del Method 97.9 F 82 20 126/73 97 Room Air 07/30/24 16:00 07/30/24 16:00 07/30/24 16:00 07/30/24 16:00 07/30/24 16:00 07/30/24 16:00 Laboratory Results - last 24 hr 07/29/24 20:23: POC Glucose 98 07/30/24 00:41: POC Glucose 107 07/30/24 05:48: POC Glucose 112 H 07/30/24 06:28: WBC 6.5, RBC 4.48, Hgb 11.6 L, Hct 35.6 L, MCV 79.5 L, MCH 25.9 L, MCHC 32.6, RDW 25.3 H*, Plt Count 307, MPV 9.8, Neut % (Auto) 52.0, Lymph % (Auto) 35.1, [place] % (Auto) 8.6, Eos % (Auto) 2.8, Baso % (Auto) 1.2, Neut # (Auto) 3.4, Lymph # (Auto) 2.3, [place] # (Auto) 0.6, Eos # (Auto) 0.2, Baso # (Auto) 0.1, Sodium 133 L, Potassium 4.0, Chloride 100, Carbon Dioxide 27, Anion Gap 10.0, BUN 11, Creatinine 0.60, Estimated Creat Clear 44, Estimated GFR 96, Est GFR ( Amer) 116, Glucose 111 H, Calcium 9.2, Magnesium 1.6, Total Bilirubin 0.3, AST 30, ALT 23, Alkaline Phosphatase 124, Total Protein 5.9 L, Albumin 3.5 D, Globulin 2.4, Albumin/Globulin Ratio 1.5 07/30/24 11:24: POC Glucose 201 H 07/30/24 16:55: POC Glucose 99 I & O for Last 24 hours: Intake & Output 07/27/24 07/28/24 07/29/24 07/30/24 23:59 23:59 23:59 23:59 Intake Total 500 / 500 1823 / 2473 1310 / 1310 Output Total 450 / 450 450 / 450 Balance 500 / 50 1373 / 2023 860 / 860 Weight 70.307 kg 67.188 kg 64.274 kg Microbiology Reports for the Last 24 Hours: Microbiology 07/29/24 11:15 Blood Blood Culture - Preliminary NO GROWTH AFTER 24 HOURS 07/29/24 11:00 Blood Blood Culture - Preliminary NO GROWTH AFTER 24 HOURS Constitutional Constitutional: no acute distress *Routine HEENT Exam Head: Present normocephalic Eye: Present EOMI and PERRL ENT: Present mucous membranes moist *Routine Neck Exam Neck: Present supple; Absent lymphadenopathy *Routine Respiratory Exam Respiratory: Present CTA bilaterally *Routine Cardiovascular Exam Cardiovascular: Present RRR *Routine Abdominal Exam Abdominal: Present soft and normoactive bowel sounds; Absent tenderness *Routine Extremities Exam Extremities: Absent cyanosis, clubbing or edema Comments: Motor strength 4/5 in bilateral upper and lower extremities. *Routine Skin Exam Skin: Present warm; Absent rash *Routine Neurological Exam Neurological: Present alert and oriented X3 Assessment and Plan *Assessment and plan (1) Hyponatremia: Status: Acute Category: Medical Code(s): E87.1 - Hypo-osmolality and hyponatremia (2) Weakness: Status: Acute Category: Medical Code(s): R53.1 - Weakness (3) KORI (iron deficiency anemia): Status: Acute Qualifiers: Iron deficiency anemia type: inadequate dietary iron intake Qualified Code(s): D50.8 - Other iron deficiency anemias Category: Medical Code(s): D50.9 - Iron deficiency anemia, unspecified (4) Falls: Status: Acute Category: Medical Code(s): R29.6 - Repeated falls (5) Weakness: Status: Acute Category: Medical Code(s): R53.1 - Weakness (6) Dehydration: Status: Acute Category: Medical Code(s): E86.0 - Dehydration (7) Hyponatremia: Status: Acute Category: Medical Code(s): E87.1 - Hypo-osmolality and hyponatremia Plan Sia Dorsey is a 83-year-old female who was admitted for worsening generalized weakness and recurrent falls at home. #Generalized weakness #Recurrent falls ? Patient reports 1 week onset of progressive generalized weakness, with 2 falls at home recently prior to admission. ? She states usually uses a walker at home but has been having increasing difficulty ambulating. ? Cervical, lumbar, thoracic spine CTs are unremarkable. No focal neurological deficits. No signs of cauda equina syndrome. ? Other than initial hyponatremia 128 (improved to 133) and mild iron deficiency anemia, other workup has been unremarkable including CBC, CMP, TFTs, folate, B12, UA, respiratory panel, CXR. ? Blood cultures NGTD 24 hours. ? PT/OT consulted, recommended SNF. Case management assisting with placement. #Hyponatremia ? Initial sodium 127, improved to 133 today. Takes hydrochlorothiazide. Had also not been eating well prior to admission. ? Will hold hydrochlorothiazide, encourage oral intake. ? Will consider serum, urine osmolality test if minimal improvement. Low suspicion for SIADH at this time. #Iron deficiency anemia ? Ferritin low normal at 16.3. Other iron studies normal. ? Will give IV Venofer. ? Continue home ferrous sulfate. MiraLAX daily. #Hypertension ? Resume home lisinopril, hold hydrochlorothiazide in the setting of hyponatremia. #History of meningioma s/p resection #Chronic right-sided facial droop ? Patient has had a chronic right-sided facial droop since meningioma resection. DNI DVT prophylaxis: Lovenox 40 mg
[2024-07-30 20:00] VITALS: BP 136/78; PULSE 86; RESP 17; TEMP 36.7; O2SAT 95
[2024-07-30] MEDS: ATORVASTATIN 40MG TABLET 40 MG PO (21:30)
[2024-07-30] MEDS: PANTOPRAZOLE 40MG TABLET 40 MG PO (21:30)
[2024-07-31] VITALS: BP 142/76; PULSE 88; RESP 19; TEMP 36.7; O2SAT 95
[2024-07-31 04:00] VITALS: BP 159/93; PULSE 90; RESP 16; TEMP 36.8; O2SAT 92; BMI 26.6
[2024-07-31 06:03] LABS: POC Glucose,Bedside 118 (70-110)
[2024-07-31 07:24] LABS: Basophils # 0.1 K/mm3 (0-0.2); Basophils % 0.9 % (0.1-2.0); Eosinophils # 0.2 K/mm3 (0.0-0.4); Eosinophils % 3.4 % (0.1-12.0); Hematocrit 35.9 % (37.0-47.0); Hemoglobin 11.7 g/dL (12.2-16.2); Lymphocytes # 2.2 K/mm3 (0.7-4.5); Lymphocytes % 32.7 % (10-50); Mean Corpuscular HGB Conc 32.6 g/dL (31.8-35.4); Mean Corpuscular Hemoglobin 26.3 pg (27.0-31.2); Mean Corpuscular Volume 80.7 fl (81-99); Mean Platelet Volume 9.3 fl (7.4-10.4); Monocytes # 0.6 K/mm3 (0.1-1.0); Monocytes % 8.9 % (1.7-9.3); Neutrophils # 3.7 K/mm3 (1.8-7.8); Neutrophils % 53.8 % (37.0-80.0); Platelet Count 308 K/mm3 (142-424); Red Blood Count 4.45 M/mm3 (4.20-5.40); White Blood Count 6.8 K/mm3 (4.8-10.8)
[2024-07-31 07:28] LABS: Red Cell Distribution Width 25.6 % (11.5-17.5)
[2024-07-31 07:36] LABS: Alanine Aminotransferase 21 U/L (12-78); Albumin Level 3.7 g/dl (3.5-5.0); Anion Gap 9.2 mEq/L (5-15); Aspartate Amino Transferase 25 U/L (14-36); Bilirubin,Total 0.5 mg/dl (0.2-1.3); Blood Urea Nitrogen 16 mg/dl (7-17); Calcium 9.8 mg/dl (8.4-10.2); Carbon Dioxide 25 mmol/L (22.0-30.0); Chloride 103 mmol/L (98-107); Creatinine Clearance Estimated 45 mL/min (50-200); Estimated Glomerular Filt Rate 96 ml/min (>60); GFR (African American) 116 ML/MIN (>60); Glucose 121 mg/dl (74-100); Magnesium 1.7 mg/dl (1.6-2.3); Potassium 4.2 mmoL/L (3.5-5.1); Sodium 133 mmol/L (136-145); Total Protein,Serum 5.8 g/dl (6.3-8.2)
[2024-07-31 07:37] LABS: Albumin/Globulin Ratio 1.8 (1.1-1.8); Alkaline Phosphatase 112 U/L (38-126); Globulin 2.1 g/dL (1.3-3.2)
[2024-07-31 08:00] VITALS: BP 157/76; PULSE 88; RESP 16; TEMP 36.5; O2SAT 95
[2024-07-31] MEDS: ENOXAPARIN 40MG/0.4ML SYRINGE 40 MG SUBCUT (08:58)
[2024-07-31] MEDS: METFORMIN 850 MG PO (08:58)
[2024-07-31] MEDS: FERROUS SULFATE 325MG TABLET 325 MG PO (08:58)
[2024-07-31] MEDS: LISINOPRIL 10MG TABLET 10 MG PO (08:58)
[2024-07-31] MEDS: humaLOG 100 UNITS/ML 10ML VIAL (SSI) SUBCUT (11:12)
--- NOTE | 2024-07-31 11:17 | PC.NURSE ---
pt states she had a very large BM on 5
[2024-07-31 11:21] LABS: POC Glucose,Bedside 157 (70-110)
--- NOTE | 2024-07-31 11:52 | HMH.SLDYSPHA ---
Speech & Language Evaluation Speech/Language Dysphagia Evaluation Start: 07/31/24 11:19 Freq: ONCE Status: Active Protocol: Document 07/31/24 11:19 MAXIMILIAN (Rec: 07/31/24 11:52 ECLARK laptop) Co-signed By ST Lana Dysphagia Assess/Goals/Plan Assessment Date of Evaluation: 07/31/24 Evaluation Type Initial Certification Assessment/Problems dysphagia per MD order Does Patient Qualify for Service No Qualify/Failure Comment Based on clinical observations made throughout clinical bedside swallow evaluation and pt interview, further skilled speech therapy services are not warranted at this time d/t no overt s/sx of aspiration and adequate mastication and manipulation of bolus. Recommendations PHYSICIAN CERTIFICATION: The specified therapy services are required, authorized, and reviewed every 30 days. Diet Recommendations Mechanical Soft Liquid Type Recommendations Normal/Thin SL Swallow Guidelines Alt bite w/sip thru meal, Standard Aspiration Prec.,Eat at slow rate,Oral Care Education,Reflux precautions Dysphagia Swallow Precautions/Strategies Sitting Upright (90 deg),No Straw,Small Bites and Sips, Alternate Liquids/Solids Plan Pt/Guardian verbally ack understanding Yes of dx/prognosis/goals G -code Required No Education Instructions provided [employer] discussed clinical observations made throughout bedside CSE, diet recommendations, and aspiration precautions/ compensatory strategies with pt, nursing, car pincher, and CM , all of which expressed understanding. Pt/Caregiver able to recall information Able to recall/restate Reinforcement needed No Speech & Language HPI History Present Illness Description of Patient Problem Mrs. Granado is an 83 y.o. female presenting to [facility] after she had a mechanical ground- level fall and weakness. Her PMHx includes hypertension, meningioma with resection, diabetes [id number]-[id number] , hyperlipidemia, nephrolithiasis, paralyzed trachea, and iron deficiency anemia. Mrs. Granado states that she has had a prior brain resection due to a meningioma . She presents with some facial asymmetry and generalized weakness. Mrs. Granado states that she has been seen by multiple [employer]'s in the past, but is not currently receiving services. She is on a regular/thin liquid diet in home environment. Her chest x-ray and head CT revealed no acute findings. Pt/Caregiver Concerns No concerns Rehab Services Assessed Speech therapy Is this evaluation r/t stroke? No Therapy History Seen by other SL therapists Yes Who/When/Recommendations Mrs. Granado received inpatient and outpatient speech therapy services at [facility]. She also received inpatient speech therapy services with [facility]. She states they recommended regular/thin liquid diet with aspiration precautions. She is not currently receiving skilled speech therapy services. Other Specialists? No General Information General Current Food Consistancy Mechanical Soft,Thin Liquids Dentition Good Dentition Facial Symmetry Patient Baseline Patient Orientation Person,Place,Time,Situation Ability to Follow Directions Excellent Communication Ability No Impairment Dysphagia:Food Presentation Evaluation Food Type Pureed,Mechanical Soft,Regular ,Liquid,Pudding Dysphagia Evaluation Regular Food Difficulty chewing Behavior Response Dysphagia Evaluation Summary A clinical bedside swallow evaluation was administered this morning with pt sitting upright in chair and with adequate dentition. Pt presents with right facial droop and generalized weakness , which is pt's baseline. Pt explained to [employer] about prior speech therapy services that she had received and stated she would not be agreeable to further speech therapy services if needed. SUPER[employer] administered the following consistencies: thin liquid ( water) via cup, pudding, puree (applesauce), mechanical soft (cookie), and regular (tommie cracker). All bolus presentations were administered x2 to assess for consistency and fatigue. Pt exhibited no overt s/sx of aspiration on any consistency trialed. Pt was observed to have prolonged mastication and manipulation of bolus on regular food trials 2' weakness. SUPER[employer] recommended chopped mechanical soft diet/ thin liquids w/ no straw and pt was agreeable. SU[employer] educated pt on aspiration precautions/ compensatory strategies. Stroke Dysphagia Assessment PHYSICIAN CERTIFICATION: I certify the specified therapy services for Sia Granado are required, authorized, and reviewed every 30 days.
--- NOTE | 2024-07-31 12:50 | EXP.DC.SUM ---
General Admission date:: 07/28/24 Discharge date: 07/31/24 HPI HPI HPI: This is an 83-year-old female who has a past medical history significant for hypertension, meningioma with resection, diabetes [id number]-[id number], hyperlipidemia, nephrolithiasis, paralyzed trachea, and iron deficiency anemia who presents after she had a mechanical ground-level fall and weakness. Due to patient's symptoms, she presented to the emergency room for evaluation. While in the emergency room, CT scan of the head, CT scan of the thoracic vertebrae, cervical spine, and pelvis were without any acute findings. Patient's serum sodium was 127 and she continues to have persistent weakness. As a result, patient has been admitted for further management. During my evaluation of the patient, patient states that she normally ambulates with a walker. She voices that she has had increasing weakness over the past couple days. While attempting to go to the refrigerator, patient fell backwards hitting her head. She is denying any syncopal episode but is currently complaining of a frontal lobe headache. Patient states she had to crawl to her house to get to the phone to call family. Patient had no obvious trauma to the head. She mentions that she has had a prior brain resection due to a meningioma which has left her face with some asymmetry and generalized weakness. Daughter at the bedside states she was at a nursing facility, yet her sisters took her out the nursing facilities patient states she is also being followed as an outpatient with speech pathology. She states that they do not recommend that she has thickened liquids that she is able to drink or liquids without a straw. She is currently denying any lightheadedness, dizziness, diplopia, blurred vision, unilateral upper or lower extremity weakness, lateral gaze deficit, slurring of speech, chest pain, shortness of breath, dyspnea, nausea, vomiting, or diarrhea. Patient does states she has had decreased p.o. intake. Additional pertinent vitals obtained include a blood pressure of 189/85 (improved to 131/44), INR 0.88, sodium 127, chloride of 87, blood glucose of 202, alkaline phosphate of 180, and CPK 152. Hospital Course Hospital Course Hospital Course: Sia Dorsey is a 83-year-old female who was admitted for worsening generalized weakness and recurrent falls at home. Worked with therapy during admission. Recommend placement. Graciously excepted by Sabas Martin. Medically stable to discharge to rehab for further care. Problems addressed as follows: #Generalized weakness #Recurrent falls ? Patient reports 1 week onset of progressive generalized weakness, with 2 falls at home recently prior to admission. She states usually uses a walker at home but has been having increasing difficulty ambulating. Cervical, lumbar, thoracic spine CTs are unremarkable. No focal neurological deficits. No signs of cauda equina syndrome. Other than initial hyponatremia 128 (improved to 133) and mild iron deficiency anemia, other workup has been unremarkable including CBC, CMP, TFTs, folate, B12, UA, respiratory panel, CXR. Blood pressure was elevated, has done better with adjustments to regimen. Infectious workup negative. Therapy working with patient. Stable to discharge to rehab. Accepted by Sabas Martin. #Hyponatremia ? Initial sodium 127, improved to 133. Stable at 133 for 48 hours. Will discontinue HCTZ due to its impact on sodium. Recommend regular diet with no sodium restriction. Needs repeat CBC, CMP, magnesium in 1 week to monitor for improvement/resolution of hyponatremia #Iron deficiency anemia ? Ferritin low normal at 16.3. Other iron studies normal. Received 1 dose of IV Venofer during admission. Continue oral iron at discharge. Initiated on docusate/senna as she has chronic constipation due to the iron. Hemoglobin 12 on day of discharge. #Hypertension: Resume home lisinopril at increased dose of 10 mg daily. Blood pressure improved, systolics 120-150 for 48 hours prior to discharge. Hold hydrochlorothiazide in the setting of hyponatremia. Resume atenolol. #History of meningioma s/p resection #Chronic right-sided facial droop ? Patient has had a chronic right-sided facial droop since meningioma resection. Total time spent on discharge 32 minutes in counseling, documentation, chart review, and direct care with patient. Exam Data for Last 24 hours Vital signs and Labs for Last 24 Hours: Temp Pulse Resp BP Pulse Ox O2 Del Method 97.7 F 88 16 157/76 H 95 Room Air 07/31/24 08:00 07/31/24 08:00 07/31/24 08:00 07/31/24 08:00 07/31/24 08:00 07/31/24 11:00 Laboratory Results - last 24 hr 07/30/24 05:48: POC Glucose 112 H 07/30/24 11:24: POC Glucose 201 H 07/30/24 16:55: POC Glucose 99 07/31/24 05:13: POC Glucose 118 H 07/31/24 06:48: WBC 6.8, RBC 4.45, Hgb 11.7 L, Hct 35.9 L, MCV 80.7 L, MCH 26.3 L, MCHC 32.6, RDW 25.6 H*, Plt Count 308, MPV 9.3, Neut % (Auto) 53.8, Lymph % (Auto) 32.7, Metcalfe % (Auto) 8.9, Eos % (Auto) 3.4, Baso % (Auto) 0.9, Neut # (Auto) 3.7, Lymph # (Auto) 2.2, Metcalfe # (Auto) 0.6, Eos # (Auto) 0.2, Baso # (Auto) 0.1, Sodium 133 L, Potassium 4.2, Chloride 103, Carbon Dioxide 25, Anion Gap 9.2, BUN 16 D, Creatinine 0.60, Estimated Creat Clear 45, Estimated GFR 96, Est GFR ( Amer) 116, Glucose 121 H, Calcium 9.8, Magnesium 1.7, Total Bilirubin 0.5, AST 25, ALT 21, Alkaline Phosphatase 112, Total Protein 5.8 L, Albumin 3.7, Globulin 2.1, Albumin/Globulin Ratio 1.8 07/31/24 11:09: POC Glucose 157 H I & O for Last 24 hours: Intake & Output 07/28/24 07/29/24 07/30/24 07/31/24 23:59 23:59 23:59 23:59 Intake Total 500 / 500 1823 / 2473 2004 270 / 270 Output Total 450 / 450 725 / 725 500 / 500 Balance 500 / 50 1373 / 3 1280 / 1280 -230 / -230 Weight 70.307 kg 67.188 kg 64.274 kg 65.726 kg Microbiology Reports for the Last 24 Hours: Microbiology 07/29/24 11:15 Blood Blood Culture - Preliminary NO GROWTH AFTER 48 HOURS 07/29/24 11:00 Blood Blood Culture - Preliminary NO GROWTH AFTER 48 HOURS Constitutional Constitutional: no acute distress, average body habitus and chronically ill appearing *Routine HEENT Exam Head: Present normocephalic Eye: Present EOMI and PERRL ENT: Present mucous membranes moist Comments: Right sided weakness, chronic *Routine Neck Exam Neck: Present supple; Absent lymphadenopathy *Routine Respiratory Exam Respiratory: Present CTA bilaterally; Absent respiratory distress, rhonchi, stridor, wheezes or crackles *Routine Cardiovascular Exam Cardiovascular: Present RRR *Routine Abdominal Exam Abdominal: Present soft, normoactive bowel sounds and tenderness (Mild, nonfocal) *Routine Rectal Exam Patient deferred: visual exam *Routine Exam Patient deferred: external exam *Routine Extremities Exam Extremities: Absent cyanosis, clubbing or edema Comments: Motor strength 4/5 in bilateral upper and lower extremities. *Routine Skin Exam Skin: Present warm; Absent rash *Routine Neurological Exam Neurological: Present alert, oriented X3, CN II-XII intact (Residual right-sided deficits chronic) and moving all extremities Routine Psychiatric Exam Psychiatric: Present normal affect Results Data Completed and Pending Labs on day of discharge: Labs from last 24 hours 07/31/24 07/31/24 07/31/24 11:09 06:48 05:13 WBC 6.8 RBC 4.45 Hgb 11.7 L Hct 35.9 L MCV 80.7 L MCH 26.3 L MCHC 32.6 RDW 25.6 H* Plt Count 308 MPV 9.3 Neut % (Auto) 53.8 Lymph % (Auto) 32.7 Metcalfe % (Auto) 8.9 Eos % (Auto) 3.4 Baso % (Auto) 0.9 Neut # (Auto) 3.7 Lymph # (Auto) 2.2 Metcalfe # (Auto) 0.6 Eos # (Auto) 0.2 Baso # (Auto) 0.1 Sodium 133 L Potassium 4.2 Chloride 103 Carbon Dioxide 25 Anion Gap 9.2 BUN 16 D Creatinine 0.60 Estimated Creat Clear 45 Estimated GFR 96 Est GFR ( Amer) 116 Glucose 121 H POC Glucose 157 H 118 H Calcium 9.8 Magnesium 1.7 Total Bilirubin 0.5 AST 25 ALT 21 Alkaline Phosphatase 112 Total Protein 5.8 L Albumin 3.7 Globulin 2.1 Albumin/Globulin Ratio 1.8 07/30/24 07/30/24 07/30/24 16:55 11:24 05:48 WBC RBC Hgb Hct MCV MCH MCHC RDW Plt Count MPV Neut % (Auto) Lymph % (Auto) Metcalfe % (Auto) Eos % (Auto) Baso % (Auto) Neut # (Auto) Lymph # (Auto) Metcalfe # (Auto) Eos # (Auto) Baso # (Auto) Sodium Potassium Chloride Carbon Dioxide Anion Gap BUN Creatinine Estimated Creat Clear Estimated GFR Est GFR ( Amer) Glucose POC Glucose 99 201 H 112 H Calcium Magnesium Total Bilirubin AST ALT Alkaline Phosphatase Total Protein Albumin Globulin Albumin/Globulin Ratio Preliminary micro results at discharge 07/29/24 11:15 Blood Culture - Preliminary Blood NO GROWTH AFTER 48 HOURS 07/29/24 11:00 Blood Culture - Preliminary Blood NO GROWTH AFTER 48 HOURS DS: Diagnosis Discharge Diagnosis (1) Hyponatremia: Status: Acute Code(s): E87.1 - Hypo-osmolality and hyponatremia (2) Weakness: Status: Acute Code(s): R53.1 - Weakness (3) KORI (iron deficiency anemia): Status: Acute Code(s): D50.9 - Iron deficiency anemia, unspecified Qualifiers: Iron deficiency anemia type: inadequate dietary iron intake Qualified Code(s): D50.8 - Other iron deficiency anemias (4) Falls: Status: Acute Code(s): R29.6 - Repeated falls (5) Dehydration: Status: Acute Code(s): E86.0 - Dehydration Meds Home Medications and Allergies Home Medications ?Medication ?Instructions ?Recorded ?Confirmed ?Type atorvastatin 40 mg tablet 40 mg PO HS 07/28/24 07/29/24 History cyanocobalamin (vitamin B-12) 1,000 mcg PO DAILY 07/28/24 07/29/24 History 1,000 mcg tablet ferrous sulfate 325 mg (65 mg 325 mg PO DAILY 07/28/24 07/29/24 History iron) tablet (FeroSul) acetaminophen 325 mg tablet 650 mg (2 x 325 mg) PO Q6HP PRN 07/31/24 Rx Fever Or Mild Pain (1-3) 30 days #90 tabs atenolol 50 mg tablet 50 mg PO DAILY 30 days #30 tabs 07/31/24 Rx ibuprofen 400 mg tablet 400 mg PO Q6HP PRN Headache 30 07/31/24 Rx days #90 tabs lisinopril 10 mg tablet 10 mg PO DAILY 30 days #30 tabs 07/31/24 Rx metformin 850 mg tablet 850 mg PO BIDWMEAL 30 days #60 tabs 07/31/24 Rx omeprazole 40 mg capsule,delayed 40 mg PO DAILY 30 days #30 caps 07/31/24 Rx release sennosides 8.6 mg-docusate sodium 1 tab-cap PO HS #30 caps 07/31/24 Rx 50 mg capsule (Senna Plus) New Prescriptions to Start Prescriptions: jamal Bhatt,Jarrell atenolol Miller,Jarrell ibuprofen Miller,Jarrell lisinopril Miller,Jarrell metformin Miller,Jarrell omeprazole Miller,Jarrell sennosides-docusate sodium [Senna Plus] Jarrell Bhatt Allergies Allergy/AdvReac Type Severity Reaction Status Date / Time Sulfa (Sulfonamide Allergy Intermediate Anaphylaxis Verified 07/28/24 21:35 Antibiotics) clindamycin Allergy Other Verified 07/29/24 00:32 nitrofurantoin (From Allergy Other Verified 07/29/24 00:32 Macrodantin) Penicillins Allergy Hives Verified 07/29/24 00:32 Discharge Plan Disposition Patient Disposition: Xfer SNF Condition: Fair Discharge Order Discharge Orders: Discharge Order (Routine); Ordered 07/31/24 Ordered By: Jarrell Bhatt Follow up Plan Prescriptions/Medication Reconciliation: New acetaminophen 325 mg Tablet 650 mg PO Q6HP PRN (Reason: Fever Or Mild Pain (1-3)) 30 Days Qty: 90 0RF lisinopril 10 mg Tablet 10 mg PO DAILY 30 Days Qty: 30 0RF ibuprofen 400 mg Tablet 400 mg PO Q6HP PRN (Reason: Headache) 30 Days Qty: 90 0RF Senna Plus 8.6-50 mg capsule 1 tab-cap PO HS Qty: 30 0RF Continued atorvastatin 40 mg tablet 40 mg PO HS cyanocobalamin (vitamin B-12) 1,000 mcg tablet 1,000 mcg PO DAILY Patient Comments: TAKE ONE TABLET BY MOUTH EVERY DAY ferrous sulfate [FeroSul] 325 mg (65 mg iron) tablet 325 mg PO DAILY Patient Comments: TAKE ONE TABLET BY MOUTH EVERY DAY metformin 850 mg tablet 850 mg PO BIDWMEAL 30 Days Qty: 60 0RF omeprazole 40 mg capsule,delayed release(DR/EC) 40 mg PO DAILY 30 Days Qty: 30 0RF atenolol 50 mg tablet 50 mg PO DAILY 30 Days Qty: 30 0RF Discontinued hydrochlorothiazide 25 mg tablet 25 mg PO DAILY Patient Comments: TAKE ONE TABLET BY MOUTH EVERY DAY lisinopril 2.5 mg tablet 2.5 mg PO DAILY Problem Reconciliation Problems Reviewed?: Yes Patient Discharge Instructions ACTIVITY: Continue current activity DIET: continue same diet Patient Instructions: DI for Hyponatremia Print Language: Nicaraguan Providers Primary Care Provider: Dakotah Leiva Admit Provider: Keyur Ma Attending Provider: Keyur Ma
--- NOTE | 2024-07-31 13:15 | PC.NURSE ---
report called to Ashely @ [facility]
[2024-08-01 05:10] LABS: HCV Ab Non Reactive (Non Reactive)
== END 2024-07-31 14:38 ==
LOC: ER 22:39 → 2ND 23:21
PROVIDERS: Nurse Practitioner Family; Admitting Provider Student in an Organized Health Care Education/Training Program; Emergency Provider Student in an Organized Health Care Education/Training Program; PCP Pediatrics; Visit Provider Student in an Organized Health Care Education/Training Program
DX: E87.1 Hypo-osmolality and hyponatremia (principal); E11.9 Type 2 diabetes mellitus without complications; R29.6 Repeated falls; D50.8 Other iron deficiency anemias; R29.810 Facial weakness; Z60.2 Problems related to living alone; Z79.84 Long term (current) use of oral hypoglycemic drugs; Z85.841 Personal history of malignant neoplasm of brain; Z79.01 Long term (current) use of anticoagulants
CPT/HCPCS: 36415; 70450; 71045; 72125; 72128; 72131; 72170; 72192; 80048; 80053; 81001; 82550; 82607; 82728; 82746; 82962; 83540; 83550; 83690; 83735; 84443; 84484; 84540; 85025; 85610; 85730; 86803; 87040; 87389; 87631; 92610; 93005; 97110; 97166; 97530; 99221; 99285; G0378; J1650; J1756; J7030

== ENCOUNTER 2024-08-08 10:33 | Emergency (ER) | payer MEDICARE, SELFPAY ==
[2024-08-08] VITALS (10 sets, daily range): BP systolic 131–165; BP diastolic 56–77; PULSE 66–77; RESP 12–20; TEMP 36.6–36.8; O2SAT 95–99; BMI 25.7
--- NOTE | 2024-08-08 10:30 | ECG_ITS ---
APPROVED REPORT Exam: Resting ECG HR:76 bpm ECG Measurements Heart Rate [address] 191 P 36 QRSd 128 QRS -34 QT 366 T 12 QTc 396 Conclusion SINUS RHYTHM LEFT AXIS DEVIATION [QRS AXIS < -30] RIGHT BUNDLE BRANCH BLOCK [120+ ms QRS DURATION, UPRIGHT V1, 40+ ms S IN I/aVL/V4/V5/V6] Electronically signed by : JJAA ROD, 08/13/2024 22:33:39
--- NOTE | 2024-08-08 10:30 | PC.NURSE ---
DR ROD AT BEDSIDE
--- NOTE | 2024-08-08 10:33 | PC.NURSE ---
DAUGHTER AT BEDSIDE
--- NOTE | 2024-08-08 10:40 | XR_ITS ---
FINAL REPORT CLINICAL HISTORY: weakness COMPARISON: None FINDINGS: No acute pulmonary opacity is present. There is no evidence of effusion or pneumothorax. Mediastinum is unremarkable. Heart size is normal. IMPRESSION: No acute abnormality. Reviewed, Interpreted and Dictated by Jim Abraham MD Transcribed by Zenobia Mendez Authenticated and [facility]
[2024-08-08 10:54] LABS: Basophils # 0.1 K/mm3 (0-0.2); Basophils % 0.8 % (0.1-2.0); Eosinophils # 0.1 K/mm3 (0.0-0.4); Eosinophils % 1.9 % (0.1-12.0); Hematocrit 40.3 % (37.0-47.0); Lymphocytes % 31.5 % (10-50); Mean Corpuscular HGB Conc 32.3 g/dL (31.8-35.4); Mean Corpuscular Hemoglobin 27.3 pg (27.0-31.2); Mean Corpuscular Volume 84.5 fl (81-99); Mean Platelet Volume 9.2 fl (7.4-10.4); Monocytes # 0.5 K/mm3 (0.1-1.0); Monocytes % 7.6 % (1.7-9.3); Neutrophils # 3.7 K/mm3 (1.8-7.8); Neutrophils % 57.9 % (37.0-80.0); Platelet Count 312 K/mm3 (142-424); Red Blood Count 4.77 M/mm3 (4.20-5.40); Red Cell Distribution Width 23.9 % (11.5-17.5); White Blood Count 6.3 K/mm3 (4.8-10.8)
[2024-08-08 10:55] LABS: VBG Base Excess 1.5 mmol/L (-2.4-2.3); VBG HCO3 26.8 mmol/L (23-30); VBG Oxygen Saturation 75.3 % (50-70); VBG PCO2 47.2 mmol/L (35-51); VBG PH 7.37 mmol/L (7.31-7.41); VBG PO2 41.6 mmol/L (28-40); VBG Total CO2 28.2 mmol/L (23-27)
--- NOTE | 2024-08-08 10:59 | HMH.EDGENADL ---
Discharge Plan Disposition Patient Disposition: Admitted Prescriptions Prescriptions: New levofloxacin 750 mg tablet 750 mg PO DAILY 8 Days Qty: 8 0RF magnesium oxide 400 mg magnesium capsule 400 mg PO HS Qty: 30 0RF No Action atorvastatin 40 mg tablet 40 mg PO HS cyanocobalamin (vitamin B-12) 1,000 mcg tablet 1,000 mcg PO DAILY Patient Comments: TAKE ONE TABLET BY MOUTH EVERY DAY ferrous sulfate [FeroSul] 325 mg (65 mg iron) tablet 325 mg PO DAILY Patient Comments: TAKE ONE TABLET BY MOUTH EVERY DAY acetaminophen 325 mg Tablet 650 mg PO Q6HP PRN (Reason: Fever Or Mild Pain (1-3)) 30 Days Qty: 90 0RF lisinopril 10 mg Tablet 10 mg PO DAILY 30 Days Qty: 30 0RF ibuprofen 400 mg Tablet 400 mg PO Q6HP PRN (Reason: Headache) 30 Days Qty: 90 0RF metformin 850 mg tablet 850 mg PO BIDWMEAL 30 Days Qty: 60 0RF omeprazole 40 mg capsule,delayed release(DR/EC) 40 mg PO DAILY 30 Days Qty: 30 0RF atenolol 50 mg tablet 50 mg PO DAILY 30 Days Qty: 30 0RF Senna Plus 8.6-50 mg capsule 1 tab-cap PO HS Qty: 30 0RF Referrals Follow up/Referrals: Dakotah Leiva [Primary Care Provider] - See instructions Activity Restrictions/Add. Instructions Additional Instructions/Restrictions: Call your family doctor to establish care for this visit to the emergency department and schedule follow-up within 48 hours to ensure improvement. If you have any worsening of your condition or any other concerning signs or symptoms, return to the emergency department or your primary care doctor for further evaluation. Levofloxacin once daily for the next 8 days, magnesium each night orally. See your family doctor for further refills. Clinical Impressions Clinical Impression: Urinary tract infection, Delirium Print Language Print Language: Jordanian Discharge ED Provider: Darin Oneil General Adult HPI General Chief complaint: Weakness Stated complaint: Weakness Time Seen by Provider: 08/08/24 10:40 Mode of Arrival: EMS Source of Information: Patient and EMS Limitations: No Limitations Description of Symptoms (Recalled from ER Triage Doc. by RN): PT BROUGHT VIA EMS FOR SUDDEN ONSET OF WEAKNESS WHILE WALKING TO THERAPY AT [facility] [place]. PT REPORTS SHE FELT LIKE SHE WAS GOING TO PASS OUT BUT DID NOT. PT REPORTS FEELING BETTER, BUT TIRED. PT REPORTS SIMILAR SYMPTOMS THAT OCCUR WHEN SHE FEELS OVERSTRESSED. PT WITH HX OF BRAIN TUMOR WITH RIGHT SIDED DEFICITS. CURRENTLY ON ABX FOR UTI. History of Present Illness HPI narrative: Please note that above description of symptoms, in this electronic medical record under categorization of recalled from ER triage doctor by RN are reflective of an initial nursing assessment, however, is not reflective of my full history and physical exam that was personally taken and clarified. Consequentially, this preceding description of symptoms, which may include the patient's categorized chief complaint in the EMR, do not reflect my personal clinical impression, and the ultimate description of history of present illness and patient stated complaints should be deferred to this section of the note. Unless stated otherwise or congruent with this section of the note, additional signs, symptoms, or incongruence should be interpreted as inaccurate with my clinical impression. Related Data Home Medications ?Medication ?Instructions ?Recorded ?Confirmed atorvastatin 40 mg tablet 40 mg PO HS 07/28/24 07/29/24 cyanocobalamin (vitamin B-12) 1,000 mcg PO DAILY 07/28/24 07/29/24 1,000 mcg tablet ferrous sulfate 325 mg (65 mg 325 mg PO DAILY 07/28/24 07/29/24 iron) tablet (FeroSul) Previous Rx's ?Medication ?Instructions ?Recorded acetaminophen 325 mg tablet 650 mg (2 x 325 mg) PO Q6HP PRN 07/31/24 Fever Or Mild Pain (1-3) 30 days #90 tabs atenolol 50 mg tablet 50 mg PO DAILY 30 days #30 tabs 07/31/24 ibuprofen 400 mg tablet 400 mg PO Q6HP PRN Headache 30 07/31/24 days #90 tabs lisinopril 10 mg tablet 10 mg PO DAILY 30 days #30 tabs 07/31/24 metformin 850 mg tablet 850 mg PO BIDWMEAL 30 days #60 tabs 07/31/24 omeprazole 40 mg capsule,delayed 40 mg PO DAILY 30 days #30 caps 07/31/24 release sennosides 8.6 mg-docusate sodium 1 tab-cap PO HS #30 caps 07/31/24 50 mg capsule (Senna Plus) levofloxacin 750 mg tablet 750 mg PO DAILY 8 days #8 tabs 08/08/24 magnesium oxide 400 mg PO HS #30 caps 08/08/24 Allergies Allergy/AdvReac Type Severity Reaction Status Date / Time Sulfa (Sulfonamide Allergy Intermediate Anaphylaxis Verified 07/28/24 21:35 Antibiotics) clindamycin Allergy Other Verified 07/29/24 00:32 nitrofurantoin (From Allergy Other Verified 07/29/24 00:32 Macrodantin) Penicillins Allergy Hives Verified 07/29/24 00:[address] [facility] Disclaimer: The information contained in this section may have been updated after the patient was seen, as this information can be updated by other users. Medical History (Updated 08/08/24 @ 12:37 by Darin Oneil MD) Diabetes mellitus Hypertension Hyperlipidemia H/O meningioma of the brain Nephrolithiasis Cataract Surgical History (Updated 07/29/24 @ 02:52 by Orly Sargent RN) History of tubal ligation History of appendectomy History of hysterectomy Social History (Updated 07/29/24 @ 00:27 by Orly Sargent RN) Smoking Status: Never smoker alcohol intake: never current occupational status: retired Travel in the last 8 weeks: None Have you lived/traveled outside US in past 30 days?: No Contact w/someone who lives/traveled outside US past 30 days?: No Exposure to someone with infectious disease in past 14 days?: No Do you have a fever (greater than 100.4 F or 38 C)?: No Have you tested positive for COVID-19: No Exposed to someone with COVID-19 in past 14 days?: No Do you have a sore throat?: No Do you have a cough?: No Do you have any weakness?: Yes Do you have any diarrhea?: No Are you experiencing any unusual bleeding?: No Do you have any muscle aches/pain?: No Do you have any abdominal pain?: No Are you experiencing loss of taste or smell?: No Other Medical History Have you received the Flu Vaccine for this season: No Have you received the Pneumonia Vaccine: No ROS Obtained: Yes All systems reviewed & no additional complaints except as documented Physical Exam General General appearance: alert Head Head exam: atraumatic, normocephalic and other (Chronic right sided facial droop) Eye Eye exam: Present normal appearance, PERRL and EOMI Neck Neck exam: Present normal inspection, full ROM and trachea midline Respiratory Respiratory exam: Present normal lung sounds bilaterally; Absent respiratory distress, wheezes, stridor, accessory muscle use or prolonged expiratory phase Cardiovascular Cardiovascular exam: Present regular rate, normal rhythm and other (Pulses equal symmetric in upper and lower extremities) Abdominal Exam Abdominal exam: Present soft; Absent distention, tenderness, guarding, rebound or pulsatile mass Extremities Exam Extremities exam: Absent edema Neurological Exam Neurological exam: Present alert, oriented X3 and CN II-XII intact (Except for chronic facial droop) Skin Skin exam: Present warm and dry; Absent diaphoresis or erythema Medical Decision Making Medical Records Medical records reviewed: Yes I reviewed the patient's medical records. Screening: Per USPSTF and CDC recommendations, given the prevalence of disease in our region, it is our hospital?s policy to screen for HIV and viral Hepatitis for all patients aged 18 and over and those with ongoing risk factors. Yefri Inquiry Pt receiving controlled substance: No Yefri was queried for this patient: No Vital Signs: 08/08/24 10:33 08/08/24 11:00 08/08/24 11:43 Temperature 98.3 F Temperature Source Oral Pulse Rate 74 75 Pulse Rate [Apical] 77 Respiratory Rate 18 20 17 Blood Pressure 143/56 H Blood Pressure [Right Arm] 165/77 H Blood Pressure Mean [Right Arm] 106 Blood Pressure Source [Right Arm] Automatic Cuff Blood Pressure Position [Right Arm] Sitting 02 Sat by Pulse Oximetry 98 95 99 Oxygen Delivery Method Room Air Room Air Room Air 08/08/24 12:00 08/08/24 12:30 08/08/24 13:00 Temperature Temperature Source Pulse Rate 72 73 73 Pulse Rate [Apical] Respiratory Rate 17 12 12 Blood Pressure 133/65 136/64 Blood Pressure [Right Arm] Blood Pressure Mean [Right Arm] Blood Pressure Source [Right Arm] Blood Pressure Position [Right Arm] 02 Sat by Pulse Oximetry 96 98 98 Oxygen Delivery Method Room Air Room Air Room Air 08/08/24 13:30 Temperature Temperature Source Pulse Rate 70 Pulse Rate [Apical] Respiratory Rate 14 Blood Pressure Blood Pressure [Right Arm] Blood Pressure Mean [Right Arm] Blood Pressure Source [Right Arm] Blood Pressure Position [Right Arm] 02 Sat by Pulse Oximetry 98 Oxygen Delivery Method Room Air Lab Data Lab Results 08/08/24 10:40: WBC 6.3, RBC 4.77, Hgb 13.0, Hct 40.3, MCV 84.5, MCH 27.3, MCHC 32.3, RDW 23.9 H, Plt Count 312, MPV 9.2, Neut % (Auto) 57.9, Lymph % (Auto) 31.5, Routt % (Auto) 7.6, Eos % (Auto) 1.9, Baso % (Auto) 0.8, Neut # (Auto) 3.7, Lymph # (Auto) 2.0, Routt # (Auto) 0.5, Eos # (Auto) 0.1, Baso # (Auto) 0.1, PT 10.1, INR 0.91, APTT 23.9, Sodium 138, Potassium 5.0, Chloride 101, Carbon Dioxide 27, Anion Gap 15.0, BUN 18 H, Creatinine 0.60, Estimated Creat Clear 44, Estimated GFR 96, Est GFR ( Amer) 116, Glucose 139 H, Hemoglobin A1c 6.2 H, Calcium 10.8 H, Magnesium 1.3 L, Total Bilirubin 0.3, AST 29, ALT 25, Alkaline Phosphatase 139 H, Troponin I < 0.01, NT-Pro-B Natriuret Pep 59.2, Total Protein 6.9, Albumin 4.5, Globulin 2.4, Albumin/Globulin Ratio 1.9 H, Lipase 58, TSH 1.60, Thyroxine (T4) 8.3, HCV Ab GEMA w/Rflx PCR Qn Negative, HIV Ag/Ab Combo Qual Negative 08/08/24 10:45: VBG pH 7.37, VBG pCO2 47.2, VBG pO2 41.6 H, VBG HCO3 26.8, VBG Total CO2 28.2 H, VBG O2 Saturation 75.3 H, VBG Base Excess 1.5, VBG Lactic Acid 4.0 H 08/08/24 11:43: Urine Color Yellow, Urine Appearance Clear, Urine pH 6.0, Ur Specific Henderson 1.015, Urine Protein Negative, Urine Glucose (UA) Negative, Urine Ketones Negative, Urine Blood Negative, Urine Nitrate Positive A, Urine Bilirubin Negative, Urine Urobilinogen 0.2, Ur Leukocyte Esterase 1+ A, Urine RBC None, Urine WBC 10-20, Ur Squamous Epith Cells 3-5, Urine Bacteria 1+ 08/08/24 13:29: Lactate 2.8 H, Troponin I < 0.01 08/08/24 10:40 08/08/24 10:40 Orders (Tests/Meds): ED MEDICATIONS Discontinued Medications Generic Name Dose Route Start Last Admin Trade Name Freq PRN Reason Stop Dose Admin Lactated Ringer's 1,000 mls @ 999 mls/hr 08/08/24 11:02 08/08/24 11:06 Lactated Ringer's 1000 Ml Bag IV 08/08/24 12:02 999 mls/hr .Q1H1M ONE Administration Ceftriaxone Sodium 1 gm/ 50 mls @ 100 mls/hr 08/08/24 12:30 08/08/24 12:48 Sodium Chloride IV 08/08/24 12:59 100 mls/hr ONCE ONE Administration Magnesium Sulfate 2 gm in 50 mls @ 50 mls/hr 08/08/24 12:47 08/08/24 13:12 Magnesium Sulfate 2gm/50ml Premix IV 08/08/24 13:46 50 mls/hr ONCE ONE Administration ORDERS Category Date Time Status XR chest portable Stat Exams 08/08/24 10:40 Completed Complete Blood Count Auto Diff Stat Lab 08/08/24 10:40 Completed Comprehensive Metabolic Panel Stat Lab 08/08/24 10:40 Completed HIV Combo Stat Lab 08/08/24 10:40 Completed Hemoglobin A1C Stat Lab 08/08/24 10:40 Completed Hepatitis C Ab Qual. W/ RFX Stat Lab 08/08/24 10:40 Completed Lactate Venous Stat Lab 08/08/24 12:48 Ordered Lactic Acid Stat Lab 08/08/24 13:29 Completed Lipase Stat Lab 08/08/24 10:40 Completed Magnesium Stat Lab 08/08/24 10:40 Completed NT Pro Brain Natriuretic Pep. Stat Lab 08/08/24 10:40 Completed PT INR [Prothrombin Time INR] Stat Lab 08/08/24 10:40 Completed PTT [Activated Partial Thrombo Time] Stat Lab 08/08/24 10:40 Completed T4 (Thyroxine) Stat Lab 08/08/24 10:40 Completed TSH [Thyroid Stimulating Hormone] Stat Lab 08/08/24 10:40 Completed Troponin I Q3H Lab 08/08/24 13:29 Completed Troponin I Q3H Lab 08/08/24 16:45 Ordered Troponin I Stat Lab 08/08/24 10:40 Completed Urinalysis and Microscopic Stat Lab 08/08/24 11:43 Completed Blood Culture Stat Micro 08/08/24 12:40 Received Urine Culture Stat Micro 08/08/24 11:43 Received Venous Blood Gas Stat RT 08/08/24 10:45 Completed Medical Decision Narrative: 83-year-old female history of diabetes, hypertension, hyperlipidemia, meningioma s/p resection with chronic right sided facial droop presenting with weakness. States that she was on her way to physical therapy when she felt acutely weak. No unilateral weakness, just all over. States that at [place] she was unable to walk the way that she usually does as she is usually pretty independent and given this as well as recent diagnosis of UTI, sent in for further evaluation with EMS. History was obtained via conversation with patient. On arrival, patient hemodynamically stable, alert, oriented x4, appropriate, GCS 15, moving all extremities spontaneously, pupils equal and reactive to light. Full physical exam performed and significant for chronically ill-appearing female no acute distress. She does have right sided facial droop which is normal. Otherwise neurovascularly intact. Answer questions appropriately. Alert and oriented. Lungs are clear, cardiac exam without murmurs gallops rubs. No lower extremity edema. Abdomen soft, nontender, nondistended. Patient has no acute complaints. She does state that she gets weak similar to this not infrequently, but does not have a reason this happens. Differential includes urinary tract infection, sepsis, metabolic abnormality, urologic abnormality, dehydration, vasovagal, orthostatic, ACS, NC, among others. Patient placed on continuous cardiac monitoring and continuous pulse ox with initial blood pressure 165/70, heart rate 77, saturation 98% on room air. Independent interpretation of EKG shows sinus rhythm with ventricular rate 176 bpm. Wide QRS with right bundle branch block morphology and left axis deviation. No acute ischemic change. Patient was given 1 L of LR for symptomatic management and correction of underlying abnormalities. Workup independently interpreted and significant for no leukocytosis. Coags normal. Chemistry nonactionable other than magnesium 1.3, this was repleted. BNP and troponin negative. Urinalysis with concern for UTI. VBG with normal pH, normal CO2 and bicarb, but lactate elevated at 4.0. On independent interpretation of imaging, no acute cardiopulmonary airspace disease. See radiology read for full review of final results. On reevaluation, patient resting comfortably, daughter now at bedside. States that she has been more confused, tearful, not acting like herself despite being treated for this urinary tract infection. Hospital medicine contacted and case was discussed. given patient presentation, workup, history, this most likely represents urinary tract infection, acute metabolic delirium and potentially developing sepsis. I do have low concern that this is sepsis developing into septic shock clinically as patient appears very clinically well and has had no systemic signs or symptoms. Very well-appearing overall. Nontachycardic, conversational, alert and oriented. I feel that lactate may be falsely elevated, however given clinical picture with a lactate of 4 and known source of infection, I spoke to hospital medicine. Hospital medicine recommended repeat lactic acid and reevaluation given patient is still clinically well. Patient was placed in observation beginning at 12:30 PM in order to rule out clinical worsening with labs and fluids and determine need for admission versus home-going. The patient was provided serial exams, fluids while awaiting results. Independent interpretation of results demonstrated downtrending lactate. Total observation time 2 hours. After fluid bolus, lactate down trended to 0.8 and patient still very clinically well-appearing with no acute complaints and remains hemodynamically stable. Given this, I feel the ciprofloxacin that patient's been on for 24 hours up to 50 twice daily is a low dose, to be changed to levofloxacin once daily for the next 8 days to complete 10-day course. Conversation had with patient and daughter regarding home-going, agreeable to return to [place]. Also recommended patient increase her calorie nutrition intake, protein, and fluids, both of them voiced her understanding of this. Because patient at baseline without signs or symptoms of clinical decompensation, deemed appropriate for discharge. Results were relayed to patient who voiced understanding and were agreeable to outpatient management and follow up. I discussed my clinical impression with patient and answered all questions. At this time, the evidence for any other entities in the differential is insufficient to warrant any further testing or ED observation. This was explained as well. Advisory was given that persistent or worsening symptoms require further evaluation. I confirmed the understanding of this discussion. Cardiovascular Technologist disclaimer Much of this encounter note is an electronic sustainable communities designer spoken language to printed text. Electronic sustainable communities designer of the spoken language may permit errors. Although I have reviewed the note, some errors may still exist. Critical Care Critical Care Time Critical Care Time: No
[2024-08-08 11:03] LABS: Activated Partial Thrombo Time 23.9 seconds (22.5-28.5)
[2024-08-08 11:04] LABS: Alanine Aminotransferase 25 U/L (12-78); Albumin Level 4.5 g/dl (3.5-5.0); Albumin/Globulin Ratio 1.9 (1.1-1.8); Alkaline Phosphatase 139 U/L (38-126); Aspartate Amino Transferase 29 U/L (14-36); Bilirubin,Total 0.3 mg/dl (0.2-1.3); Blood Urea Nitrogen 18 mg/dl (7-17); Calcium 10.8 mg/dl (8.4-10.2); Carbon Dioxide 27 mmol/L (22.0-30.0); Chloride 101 mmol/L (98-107); Creatinine Clearance Estimated 44 mL/min (50-200); Estimated Glomerular Filt Rate 96 ml/min (>60); GFR (African American) 116 ML/MIN (>60); Globulin 2.4 g/dL (1.3-3.2); Glucose 139 mg/dl (74-100); Sodium 138 mmol/L (136-145); Total Protein,Serum 6.9 g/dl (6.3-8.2)
[2024-08-08 11:05] LABS: Lipase 58 U/L (23-300); Magnesium 1.3 mg/dl (1.6-2.3)
[2024-08-08] MEDS: LACTATED RINGERS 1000ML 1,000 ML 999 ML IV (11:06)
[2024-08-08 11:14] LABS: NT Pro Brain Natriuretic Pep. 59.2 pg/mL (0-450)
[2024-08-08 11:16] LABS: INR 0.91 (0.9-1.1); Prothrombin Time 10.1 seconds (9.2-12.1)
[2024-08-08 11:17] LABS: Hemoglobin A1C 6.2 % (4.0-6.0)
[2024-08-08 11:23] LABS: T4 (Thyroxine) 8.3 ug/dl (5.53-11.0)
[2024-08-08 11:26] LABS: Troponin I < 0.01 ng/ml (0.00-0.034)
--- NOTE | 2024-08-08 11:44 | PC.NURSE ---
UA sent to lab
--- NOTE | 2024-08-08 11:45 | PC.NURSE ---
pt hooked up to monitor, sitting up in wheelchair with family at BS. call light within reach
[2024-08-08 11:47] LABS: Microscopic, Urine URINE MICROSCOPIC (MICROSCOPIC)
[2024-08-08 11:51] LABS: Appearance,Urine CLEAR (Clear); Bilirubin,Urine Negative (Negative); Blood, Urine Negative (Negative); Color,Urine YELLOW (Yellow); Glucose,Urine (UA) Negative (Negative); Ketones,Urine Negative (Negative); Leukocyte Esterase,Urine 1+ (Negative); Nitrate,Urine POSITIVE (Negative); Protein,Urine Negative (Negative); Specific Gravity, Urine 1.015 (1.005-1.030); Urobilinogen,Urine 0.2 EU/dl (0.2)
[2024-08-08 12:09] LABS: HIV Combo NEGATIVE (Negative)
[2024-08-08 12:15] LABS: Bacteria,Urine 1+ /lpf
--- NOTE | 2024-08-08 12:16 | PC.NURSE ---
Dr. Oneil at BS for update on POC. at BS
[2024-08-08 12:18] LABS: Hepatitis C Ab Qual. W/ RFX NEGATIVE (Negative)
--- NOTE | 2024-08-08 12:20 | PC.NURSE ---
DR ROD AT BEDSIDE TO UPDATE PT AND FAMILY
--- NOTE | 2024-08-08 12:30 | PC.NURSE ---
DR ROD SPEAKING WITH HOSPITALIST FOR ADMISSION, WILL CALL BACK
--- NOTE | 2024-08-08 12:41 | PC.NURSE ---
Both sets of blood cultures sent to lab
--- NOTE | 2024-08-08 12:43 | PC.NURSE ---
Calling for diabetic lunch tray
[2024-08-08] MEDS: CEFTRIAXONE 1 GM 1 GM in 0.9 % SODIUM CHLORIDE 50 ML IV (12:48)
--- NOTE | 2024-08-08 12:49 | PC.NURSE ---
Dietary brought patient lunch tray, pt sitting up in wheelchair with family at BS
[2024-08-08] MEDS: MAGNESIUM SULFATE IN WATER 2 GM/50 ML PIGGYBACK IV (13:12)
[2024-08-08 14:11] LABS: Lactic Acid 2.8 mmol/L (0.7-2.1); Troponin I < 0.01 ng/ml (0.00-0.034)
--- NOTE | 2024-08-08 14:23 | PC.NURSE ---
Dr. Oneil speaking with regarding possible admission
--- NOTE | 2024-08-08 14:57 | PC.NURSE ---
report called to zena at [facility].
[2024-08-08 14:59] LABS: Reflex Lactic Add Lactic Reflex
--- NOTE | 2024-08-12 08:38 | PC.NURSE ---
Urine culture discussed with , pt dc with appropriate antibiotics.
--- NOTE | 2024-08-12 08:43 | PC.NURSE ---
Urine culture discussed with , pt dc with appropriate antibiotics.
== END 2024-08-08 15:14 | disposition admitted as inpatient to this hospital (09) ==
PROVIDERS: Emergency Provider Emergency Medicine; PCP Pediatrics
DX: N39.0 Urinary tract infection, site not specified (principal); R53.1 Weakness; R41.0 Disorientation, unspecified
CPT/HCPCS: 71045; 80053; 81001; 82803; 83036; 83605; 83690; 83735; 83880; 84436; 84443; 84484; 85025; 85610; 85730; 86803; 87040; 87086; 87088; 87186; 87389; 93005; 96361; 96365; 96367; 99284; J0696; J3475; J7120

== ENCOUNTER 2024-08-28 16:05 | Outpatient (CLI) | payer MEDICARE, SELFPAY ==
[2024-08-28 16:19] LABS: Microscopic, Urine URINE MICROSCOPIC (MICROSCOPIC)
[2024-08-28 17:36] LABS: Appearance,Urine CLEAR (Clear); Bilirubin,Urine Negative (Negative); Blood, Urine Negative (Negative); Color,Urine YELLOW (Yellow); Glucose,Urine (UA) Negative (Negative); Ketones,Urine Negative (Negative); Leukocyte Esterase,Urine TRACE (Negative); Nitrate,Urine Negative (Negative); Protein,Urine Negative (Negative); Urobilinogen,Urine 0.2 EU/dl (0.2)
[2024-08-28 18:05] LABS: Bacteria,Urine 1+ /lpf; Squamous Epithelial Cell,Urine Occasional #/hpf (0-5)
== END 2024-08-28 23:59 | disposition home or self-care (01) ==
LOC: LAB.DROPOF 16:08
PROVIDERS: PCP Family Medicine Hospice and Palliative Medicine; Visit Provider Family Medicine Hospice and Palliative Medicine
DX: R41.0 Disorientation, unspecified (principal)
CPT/HCPCS: 81001

== ENCOUNTER 2024-11-23 17:40 | Emergency (ER) | payer MEDICARE, SELFPAY ==
[2024-11-23] VITALS (7 sets, daily range): BP systolic 122–183; BP diastolic 77–99; PULSE 73–84; RESP 16–20; TEMP 36.6–37.1; O2SAT 90–98; BMI 25.7
--- OUTSIDE RECORDS SUMMARY | 2024-11-23 17:52 | XMS_ITS | Data Portability ---
Author Organization [place] GAIL Rodriguez [place] CLOSED Address [address] [facility] [address] [place] [address] Assessment Encounter Date Assessment Date Assessment LastModified by Organization Details LastModified Time 04/26/2023 04/26/2023 82-year-old laruence lopez with history of recurrent UTIs and urolithiasis. She takes methenamine for recurrent UTIs. She went to the [facility] on 04/08/2023 and was diagnosed with SUJATHA and sepsis. She was moved to the ICU but, recovered quickly and was moved to the floor 2 days later. She was transferred to [facility] in [place] and saw Dr. Interiano 04/12/23. A CT scan showed a 2 cm right UPJ stone with hydronephrosis and 2 cm gall stone. She underwent cystoscopy with right ureteral stent placement on 04/13/23. We discussed ESWL in detail today. She asked about PCNL instead. I will send a case to Dr. Interiano for review. I will contact her with his recommendations for surgical management of the 2 cm right UPJ stone. She is concerned that she may develop UTI prior to surgery since she is currently experiencing dysuria. We have agreed to start doxycycline and stop methenamine until after surgery. She will take doxycycline BID x 5 days then once at bedtime. Plan: Start doxycycline. Follow-up TBD. richey Not available 04/27/2023 08:27:07 06/30/2023 06/30/2023 82-year-old femglenis lopez with history of recurrent UTIs and urolithiasis. She takes methenamine for recurrent UTIs. She went to the [facility] on 04/08/2023 and was diagnosed with SUJATHA and sepsis. She was moved to the ICU but, recovered quickly and was moved to the floor 2 days later. She was transferred to [facility] in [place] and saw Dr. Interiano 04/12/23. A CT scan showed a 2 cm right UPJ stone with hydronephrosis and 2 cm gall stone. She underwent cystoscopy with right ureteral stent placement on 04/13/23. She underwent right PCNL 06/06/23. The UA is negative and she denies UTI symptoms. She is doing well and is pleased. She was instructed that she does not need to restart methenamine at this time. She received a denial letter from her insurance regarding an inpatient stay at [facility]. I discussed this with our radiology scheduler. Advised the patient that she does not need to worry about this as it will be worked out between the hospital and [facility]. She will contact us if needed. She will follow-up with urology as needed. Plan: She will follow-up as needed. evickers Not available 06/30/2023 14:29:47 Plan of Treatment Reminders Order Date Submit Date Provider Last Modified By Organization Details Last Modified Time Details Appointments None recorded. Lab urinalysis, dipstick 2022 023 evickers Not available 13:51:50 urinalysis, dipstick 2022 023 evickers Not available 14:09:40 Referral None recorded. Procedures None recorded. Surgeries None recorded. Imaging XR, abdomen, 1 view 2022 023 [facility], [address] [place], [address], 15:38:55 Medication Orders doxycycline hyclate 100 mg tablet 2022 023 [id number], [address], [place], [id number], 14:09:47 Patient TargetsNo targets recorded. Patient InstructionsNo instructions recorded. Reason for Referral None Reported. Results Created Date Observation Date Name Description Value Unit Range Abnormal Flag Note LastModifiedBy Organization Detail LastModifiedTime 04/26/2004/26/2023 urina lysis , dipst ick Unknown Analyte Yellow Not Available [facility] [address] [place], [address], 04/26/2023 13:42:13 04/26/2004/26/2023 urina lysis , dipst ick Unknown Analyte Clear Not Available [facility] [address] [place] [address], [address], 04/26/2023 13:42:13 04/26/2004/26/2023 urina lysis , dipst ick Unknown Analyte 1.015 Not Available [facility] [address] [place] [address], [address], 04/26/2023 13:42:13 04/26/2004/26/2023 urina lysis , dipst ick Unknown Analyte 5.0 Not Available [facility] [address] [place] [address], [address], 04/26/2023 13:42:13 04/26/2004/26/2023 urina lysis , dipst ick Unknown Analyte 500 Rosita/ul (++) Not Available [facility] [address] [place] [address], [address], 04/26/2023 13:42:13 04/26/2004/26/2023 urina lysis , dipst ick Unknown Analyte Positi ve Not Available [facility] [address] [place] [address], [address], 04/26/2023 13:42:13 04/26/2004/26/2023 urina lysis , dipst ick Unknown Analyte 30 mg/dl (+) Not Available [facility] [address] [place] [address], [address], 04/26/2023 13:42:13 04/26/2004/26/2023 urina lysis , dipst ick Unknown Analyte 250 mg/dl Not Available [facility] [address] [place], [address], 04/26/2023 13:42:13 04/26/2004/26/2023 urina lysis , dipst ick Unknown Analyte Negati ve Not Available [facility] [address] [place] [address], [address], 04/26/2023 13:42:13 04/26/2004/26/2023 urina lysis , dipst ick Unknown Analyte Normal Not Available [facility] [address] [place] [address], [address], 04/26/2023 13:42:13 04/26/2004/26/2023 urina lysis , dipst ick Unknown Analyte Negati ve Not Available [facility] [address] [place] [address], [address], 04/26/2023 13:42:13 04/26/2004/26/2023 urina lysis , dipst ick Unknown Analyte 250 Hammad/ul Not Available [facility] [address] [place] [address], [address], 04/26/2023 13:42:13 04/26/2004/26/2023 urina lysis , dipst ick Unknown Analyte Clean Catch Not Available [facility] [address] [place] [address], [address], 04/26/2023 13:42:13 04/26/2004/26/2023 urina lysis , dipst ick Unknown Analyte Visual Not Available [facility] [address] [place] [address], [address], 04/26/2023 13:42:13 06/30/20 23 06/30/2023 urina lysis , dipst ick Unknown Analyte Yellow Not Available [facility] [address] [place], [address], 06/30/2023 13:20:09 06/30/20 23 06/30/2023 urina lysis , dipst ick Unknown Analyte Clear Not Available [facility] [address] [place], [address], 06/30/2023 13:20:09 06/30/20 23 06/30/2023 urina lysis , dipst ick Unknown Analyte 1.020 Not Available [facility] [address] [place], [address], 06/30/2023 13:20:09 06/30/20 23 06/30/2023 urina lysis , dipst ick Unknown Analyte 7.0 Not Available [facility] [address] [place] [address], [address], 06/30/2023 13:20:09 06/30/20 23 06/30/2023 urina lysis , dipst ick Unknown Analyte Negati ve Not Available [facility] [address] [place] [address], [address], 06/30/2023 13:20:09 06/30/20 23 06/30/2023 urina lysis , dipst ick Unknown Analyte Negati ve Not Available [facility] [address], [address], 06/30/2023 13:20:09 06/30/20 23 06/30/2023 urina lysis , dipst ick Unknown Analyte Negati ve Not Available [facility] [address] [place] [address], [address], 06/30/2023 13:20:09 06/30/20 23 06/30/2023 urina lysis , dipst ick Unknown Analyte Normal Not Available [facility] [address] [place], [address], 06/30/2023 13:20:09 06/30/20 23 06/30/2023 urina lysis , dipst ick Unknown Analyte Negati ve Not Available [facility] [address] [place] [address], [address], 06/30/2023 13:20:09 06/30/20 23 06/30/2023 urina lysis , dipst ick Unknown Analyte Normal Not Available [facility] [address], [address], 06/30/2023 13:20:09 06/30/20 23 06/30/2023 urina lysis , dipst ick Unknown Analyte Negati ve Not Available [facility] [address], [address], 06/30/2023 13:20:09 06/30/20 23 06/30/2023 urina lysis , dipst ick Unknown Analyte Negati ve Not Available [facility] [address], [address], 06/30/2023 13:20:09 06/30/20 23 06/30/2023 urina lysis , dipst ick Unknown Analyte Clean Catch Not Available [facility] [address], [address], 06/30/2023 13:20:09 06/30/20 23 06/30/2023 urina lysis , dipst ick Unknown Analyte Visual Not Available [facility] [address], [address], 06/30/2023 13:20:09 04/26/20 23 04/26/2023 XR, abdom en, [address] [address] [place] t Name: SIA Ortez dana : 942 Pérez t Orderi ng Provid er: JING Mendieta EXAM DATE: 2022 EXAM: XR ABDOME N [facility] INFORM ATION: Abdomi nal pain. IMAGES PROVID ED: KUB AP radiog raphic images of the abdome n. COMPAR RHONA: None. FINDIN GS: No eviden ce of bowel dilata tion. Retain ed barium is presen t in the left colon and sigmoi d with severe divert iculos is noted. There is a right ureter al stent in situ. Stones are presen t in the right renal bed centra lly. The larges t stone is 2.3 cm. No radiog raphic eviden ce of free intrap eriton eal air. IMPRES MARIA: 1. Right urolit hiasis with well-p ositio princess right ureter al stent 2. Severe coloni c divert iculos is Interp reted By: Keyur Merritt MD Electr onical ly Signed By: Keyur Merritt MD on 023 3:33 PM [facility] [address] [place], [address], 04/27/2023 08:17:07 Result Notes None recorded. Procedures Surgical History Date Name Laterality Status Provider Name and Address Organization Details Recorded Time 06/06/20 23 Kidney Stones completed KARLENE INTERIANO MD [address] [place], [address], [facility] 06/06/2023 17:29:08 Appendectomy completed Susijess Soto [facility] 04/26/2023 13:38:57 cholecystectomy completed [facility] 04/26/2023 13:39:06 Hysterectomy completed Susijess Soto [facility] 04/26/2023 13:39:22 Imaging Results Imaging Date Name Status LastModified by Organiz ation Details LastModified Time 04/26/2023 XR, abdomen, 1 view completed [facility] [address] [place], [address], 04/27/2023 08:17:07 Procedure Notes None recorded. Medical Equipment None Reported. Allergies Allergen ID Allergen Name Allergen Category Reaction Reaction Severity Criticality Documentation Date Start Date Code Code System Note Provider Name and Address Organization Details Recorded Time 873329 Product containin g penicilli n (product) medicatio n Not available Not available Not available 06/18/20162013 15624 8001 SNOMED Comme nt: Creat ed By: Kenn Donovana cullen Date: 2:11: 27 PM; Not Available [facility] 6 08:46:33 702643 Macrodant in medicatio n Not available Not available Not available 06/18/20162013 20341 4 RxNorm Comme nt: Creat ed By: Kenn Zayas cullen Date: 2:11: 43 PM; Not Available [facility] 6 08:46:33 [id number] Substance with sulfonami de structure and antibacte rial mechanism of action (substanc e) medicatio n Not available Not available Not available 06/18/20162013 30295 8003 SNOMED Comme nt: Creat ed By: Kenn Donovana cullen Date: 2:11: 37 PM; Not Available [facility] 6 09:37:15 [id number] clindamyc in Not available hives severe Not available 04/18/20232022 2582 RxNorm [facility] Sherice Lewis [facility] 3 08:18:46 [id number] nitrofura ntoin, macrocrys tals medicatio n hives severe Not available 04/18/20232022 14789 9 RxNorm Jocelyn Lewis [facility] 3 08:18:46 Medications Name Sig Start Date Stop Date Status Note LastModified by Organization Details LastModified Time atorvasta tin 40 mg tablet 40 mg by oral route. active Not Available Not Available No t Available metformin 500 mg tablet Two times a day active Frequenc y: bid;Alt Frequenc y: with food;Med ication Descript ion: metformi n; Dosage:1 ; Route:or al; refills: 0 Not Available Not Available Not Available ipratropi um 0.5 mg-albute rol 3 mg (2.5 mg base)/3 mL nebulizat ion soln 3 mL by inhalati on route. active Not Available Not Available No t Available Doc-Q-Lac e 100 mg capsule Daily active Frequenc y: daily;Me dication Descript ion: docusate ; Dosage:1 ; Route:or al; refills: 0 Not Available Not Available Not Available metformin 850 mg tablet 850 mg by oral route. active Not Available Not Available No t Available ciproflox acin 500 mg tablet 500 mg by oral route. 04/14 completed Not Available Not Available Not Available omeprazol e 40 mg capsule,d elayed release 40 mg by oral route. active Not Available Not Available No t Available methenami ne hippurate 1 gram tablet Take 0.5 g by oral route. 06/30 completed Not Available Not Available Not Available magnesium oxide 400 mg (241.3 mg magnesium ) tablet 400 mg by oral route. active Not Available Not Available No t Available carboxyme thylcellu lose sodium 0.5 % eye drops 1 [drp] by ophthalm ic route. active Not Available Not Available No t Available simvastat in 20 mg tablet Daily 04/26 completed Frequenc y: daily;Me dication Descript ion: simvasta tin; Dosage:1 ; Route:or al; refills: 0 Not Available Not Available Not Available omeprazol e 20 mg capsule,d elayed release Daily active Frequenc y: daily;Me dication Descript ion: omeprazo le; Dosage:1 ; Route:or al; refills: 0 Not Available Not Available Not Available lisinopri l 5 mg tablet 5 mg by oral route. 05/17 completed Not Available Not Available Not Available hydrochlo rothiazid e 25 mg tablet Daily active Frequenc y: daily;Me dication Descript ion: hydrochl orothiaz sofie; Dosage:1 ; Route:or al; refills: 0 Not Available Not Available Not Available estradiol 0.01% (0.1 mg/gram) vaginal cream Insert 2 g by vaginal route. active topical applicat ion Not Available Not Available Not Available lisinopri l 2.5 mg tablet 2.5 mg by oral route. 04/15 completed Not Available Not Available Not Available doxycycli ne hyclate 100 mg tablet take one tablet every 12 hours x 5 days then one tablet at bedtime x 30 days 2022 active Not Available Not Available Not Avai lable atenolol 50 mg tablet Daily active Frequenc y: daily;Me dication Descript ion: atenolol ; Dosage:1 ; Route:or al; refills: 0 Not Available Not Available Not Available metoclopr amide 10 mg tablet Daily active Frequenc y: daily;Me dication Descript ion: metoclop ramide; Dosage:1 ; Route:or al; refills: 0 Not Available Not Available Not Available albuterol sulfate active Medicati on Descript ion: albutero l; Dosage:1 ; refills: 0 Not Available Not Available Not Available propylene glycol 0.6 % eye drops 04/13 completed Not Available Not Available Not Available Vitals Date Recorded Body height Body mass index (BMI) Body weight Provider Name and Address Organization Details Last Updated DateTime 04/26/2023 157.48 cm 27.1 kg/m2 90116.67 g Susi [facility] 04/26/2023 13:43:40 Date Recorded Body height Body mass index (BMI) Body weight Provider Name and Address Organization Details Last Updated DateTime 06/30/2023 157.48 cm 27.1 kg/m2 49714.67 g Susi [facility] 06/30/2023 13:31:37 Social History Question Answer Notes LastModified by Organizat ion Details LastModified Time Tobacco Smoking Status [facility] 04/26/2023 13:38:30 Are You Currently Employed? No Information not available 04/26/2023 What Is Your Relationship Status? Information not available 04/26/2023 Sex: Unknown Functional Status None recorded. Mental Status None recorded. Family History Relationship Description Onset Age of this Age Resolved Age Notes LastModified by Organization Details LastModified Time Unspecified Relation Family history of malignant neoplasm stomac h, pancre atic Not available 04/26/2023 13:37:54 Unspecified Relation Heart disease Not available 2022 13:38:07 Unspecified Relation Hypertensive disorder Not available 2022 13:38:20 Medical History Condition Response Diabetes Y Arthritis Y Urinary Problems Y Kidney Stones Y High Cholesterol Y Bronchitis Y Urinary Tract Infection Y Chemotherapy Y Hypertension Y Gynecological HistoryNo gynecological history recorded. Obstetrics History GPAL:G 4 P 0 0 0 2 Type Value Living 2 Total 4 Past Encounters Encounter ID Performer Location Encounter Start Date Encounter Closed Date Diagnosis/Indication Diagnosis SNOMED-CT Code Diagnosis ICD10 Code Diagnosis Note [id number] LOW HERNANDEZ [facility] [place] [facility] [address] [place] [address] 1 04/26/2023 13:03:37 04/28/2023 04:18:56 Kidney stone 58357655 N20.0 Dysuria 48122163 R30.0 Recurrent urinary tract infection 406209171 N39.0 [id number] LOW HERNANDEZ [facility] [place] [facility] [address] [place] [address] 1 06/30/2023 13:14:18 06/30/2023 15:17:52 Recurrent urinary tract infection 335408940 N39.0 History of calculus of kidney 581818615 Z87.442 Health Concerns Section Related Observation LastModified by Organization Detai ls LastModified Time None Recorded Concern Status LastModified by Organization Details LastModified Time None Recorded Advance Directives Directive None Recorded Payers Encounter Date Sequence Insurance Name Policy Number Policy Terry Covered Member ID Terry Member ID Guarantor Name 04/26/2023 1 [employer] (MEDICARE REPLACEMENT/A DVANTAGE - PPO) [id number] Sia Granado [id number] Sia Granado 06/30/2023 1 [employer] (MEDICARE REPLACEMENT/A DVANTAGE - PPO) [id number] Sia Granado [id number] Sia Granado Notes Date Note Type Note Provider Name and Address Organization Details Recorded Time 04/26/2023 text/html 82-year-old fema le here for hospital follow-up with her sister Pallavi Jaeger. She has a history of diabetes, hypertension, meningioma in 2006 with left hemiplegia after surgery She has a history of recurrent UTIs for several years. She has seen several urologists and has tried various UTI prophylaxis regimens without success. She current takes methenamine 1 gm BID. She was recently diagnosed with urolithiasis while hospitalized. She went to the [facility] on 04/08/2023 and was diagnosed with SUJATHA and sepsis. She was moved to the ICU but, recovered quickly and was moved to the floor 2 days later. She was transferred to [facility] in [place] and saw Dr. Interiano 04/12/23. A CT scan showed a 2 cm right UPJ stone with hydronephrosis and 2 cm gall stone. She underwent cystoscopy with right ureteral stent placement on 04/13/23. She has never been a smoker. HPI: She reports she is feeling well currently. She finished ciprofloxacin 2 days ago. She has mild dysuria and feels like a UTI might be starting. She is drinking plenty of fluids. LOW HERNANDEZ, [employer] [address] [place], [address], [facility] 04/27/2023 08:30:18 06/30/2023 text/html 82-year-old femglenis le here for hospital follow-up with her sister Pallavi Jaeger. She has a history of diabetes, hypertension, meningioma in 2006 with left hemiplegia after surgery She has a history of recurrent UTIs for several years. She has seen several urologists and has tried various UTI prophylaxis regimens without success. She current takes methenamine 1 gm BID. She was recently diagnosed with urolithiasis while hospitalized. She went to the [facility] on 04/08/2023 and was diagnosed with SUJATHA and sepsis. She was moved to the ICU but, recovered quickly and was moved to the floor 2 days later. She was transferred to [facility] in [place] and saw Dr. Interiano 04/12/23. A CT scan showed a 2 cm right UPJ stone with hydronephrosis and 2 cm gall stone. She underwent cystoscopy with right ureteral stent placement on 04/13/23. She underwent right PCNL by Dr. Interiano on 06/06/23. She has never been a smoker. HPI: She returns today for follow-up after right PCNL. She feels well but, has had more fatigue recently. She denies any pain from her surgical site or dysuria. She is drinking plenty of water. She wants to know if she should restart methenamine. LOW HERNANDEZ, [employer] [address] [place], [address], [facility] 06/30/2023 14:29:51 OBGyn Episode No OBEpisode recorded.
--- OUTSIDE RECORDS SUMMARY | 2024-11-23 17:53 | XMS_ITS | Data Portability ---
Author Organization [facility] Address [address] [place] [address] Care Team Providers Care Cloth Drier Name Role Phone DAKOTAH LEIVA Primary Care Provider [phone] Assessment No assessment recorded. Plan of Treatment Reminders Order Date Submit Date Provider Last Modified By Organization Details Last Modified Time Details Appointments None recorded. Lab HbA1c (hemoglobin A1c), blood 2023 024 [email or web address] 7 [facility], [address] [place] [address], [address], [place], [address], 4 18:28:39 TSH + free T4, serum 2023 024 STEPHANIA Ferguson, [address], [address], [place], [address], 4 09:41:48 HbA1c (hemoglobin A1c), blood 2023 024 STEPHANIA Ferguson, [address], [address], [place], [address], 4 09:41:53 CBC w/ auto diff 2023 024 STEPHANIA Ferguson, [address], [address], [place], [address], 4 09:41:49 lipid panel, serum 2023 024 STEPHANIA Ferguson, [address], [address], [place], [address], 4 09:41:52 CMP, serum or plasma 2023 024 [facility], [address], [address], [place], [address], 4 09:41:51 iron + TIBC + ferritin, serum 2023 024 [place] [facility], [address], [address], [place], [address], 4 09:41:46 vitamin B12, serum 2023 024 [place] [facility], [address], [address], [place], [address], 4 09:41:55 magnesium, serum or plasma 2023 024 [place] [facility], [address], [address], [place], [address], 4 09:41:56 HbA1c (hemoglobin A1c), blood 2023 024 [id number] 7 [facility] [place], [address], [address], [place], [address], 4 18:53:13 Referral None recorded. Procedures None recorded. Surgeries None recorded. Imaging None recorded. Medication Orders lisinopril 2.5 mg tablet 2023 [facility], [address], [place], [address], 4 15:43:29 atenolol 50 mg tablet 2023 [facility], [address], [place], [address], 4 15:53:33 atorvastati n 40 mg tablet 2023 [facility], [address], [place], [address], 4 15:53:32 cyanocobala min (vit B-12) 1,000 mcg/mL injection solution [email or web address] [facility], [address], [place], [address], 4 17:27:17 cyanocobala min (vit B-12) 1,000 mcg tablet 2023 [facility], [address] [place], [address], 4 16:32:53 ferrous sulfate 325 mg (65 mg iron) tablet 2023 [facility], [address] [place], [address], 4 16:32:52 metoclopram sofie 10 mg tablet 2023 [facility], [address] [place], [address], 4 14:33:02 metformin 850 mg tablet 2023 024 [facility]06597, [address] [place] [address], [id number], 4 18:53:20 atenolol 50 mg tablet 2023 [facility] #61064, [address] [place] [address], [id number], 4 18:53:16 hydrochloro thiazide 25 mg tablet 2023 [facility] #62339, [address] [place] [address], [id number], 4 18:53:21 lisinopril 2.5 mg tablet 2023 024 [facility] #44446, [address] [place] [address], [id number], 4 18:53:17 metoclopram sofie 10 mg tablet 2023 024 [email or web address] [facility]24735, [address] [place] [address], [id number], 4 14:08:23 omeprazole 40 mg capsule,del ayed release 2023 024 [facility] #40278, [address] [place] [address], [id number], 4 18:53:16 atorvastati n 40 mg tablet 2023 024 [facility] #23228, [address] [place] [address], [id number], 4 18:53:22 ondansetron 4 mg disintegrat ing tablet [address] [facility]02283, [address] [place] [address], [id number], 4 16:06:41 promethazin e 12.5 mg tablet 2022 023 [facility] #38158, [address] [place] [address], [id number], 4 16:06:55 Patient TargetsNo targets recorded. Patient Instructions Encounter Date Encounter Id Patient Instructions Last Modified By Organization Details Last Modified Time 05/17/2024 [id number] Health Maintenance Recommendations: (5-10 year screening/prevent ion plan) [email or web address] Not available 05/17/2024 14:09:15 Reason for Referral None Reported. Results Created Date Observation Date Name Description Value Unit Range Abnormal Flag Note LastModifiedBy Organization Detail LastModifiedTime 09/16/19 24 09/16/2023 HbA1c (hemo globi n A1c), blood HbA1c 7.5 Not Available [facility] [address], [place], [address], 09/16/2023 15:07:41 12/29/19 24 12/30/2023 FE+TI BC+FE R iron bind.cap.(TI BC) 437 ug/dL 250-45 0 Not Available [facility] ([facility]) [address] [place], [address], 12/30/2023 09:41:46 12/29/19 24 12/30/2023 FE+TI BC+FE R UIBC 416 ug/dL 118-36 9 above high normal Not Available [facility] ([facility]) [address] [place], [address], 12/30/2023 09:41:46 12/29/19 24 12/30/2023 FE+TI BC+FE R iron 21 ug/dL 27-139 below low normal Not Available [facility] ([facility]) [address] [place], [address], 12/30/2023 09:41:46 12/29/19 24 12/30/2023 FE+TI BC+FE R iron saturation 5 % 15-55 alert low Not Available [facility] ([facility]) [address] [place], [address], 12/30/2023 09:41:46 12/29/19 24 12/30/2023 FE+TI BC+FE R ferritin 10 NG/mL 15-150 below low normal Not Available [facility] ([facility]) [address] [facility] [place], [address], 12/30/2023 09:41:46 12/29/19 24 12/30/2023 TSH+F REE T4 TSH 2.780 uIU/m L 0.450- 4.500 Not Available [facility] ([facility]) [address] [facility] [place], [address], 12/30/2023 09:41:48 12/29/19 24 12/30/2023 TSH+F REE T4 T4,free(dire ct) 1.12 NG/dL 0.82-1 .77 Not Available [facility] ([facility]) [address] [facility] [place], [address], 12/30/2023 09:41:48 12/29/19 24 12/30/2023 CBC WITH DIFFE RENTI AL/PL ATELE T WBC 7.5 x10e3 /uL 3.4-10 .8 Not Available [facility] ([facility]) [address] [place], [address], 12/30/2023 09:41:49 12/29/19 24 12/30/2023 CBC WITH DIFFE RENTI AL/PL ATELE T RBC 4.78 x10e6 /uL 3.77-5 .28 Not Available [facility] ([facility]) [address] [place], [address], 12/30/2023 09:41:49 12/29/19 24 12/30/2023 CBC WITH DIFFE RENTI AL/PL ATELE T hemoglobin 9.6 g/dL 11.1-1 5.9 below low normal Not Available [facility] ([facility]) [address] [place], [address], 12/30/2023 09:41:49 12/29/19 24 12/30/2023 CBC WITH DIFFE RENTI AL/PL ATELE T hematocrit 33.8 % 34.0-4 6.6 below low normal Not Available [facility] ([facility]) [address] [place], [address], 12/30/2023 09:41:49 12/29/19 24 12/30/2023 CBC WITH DIFFE RENTI AL/PL ATELE T MCV 71 fL 79-97 below low normal Not Available [facility] ([facility]) [address] [place], [address], 12/30/2023 09:41:49 12/29/19 24 12/30/2023 CBC WITH DIFFE RENTI AL/PL ATELE T MCH 20.1 pg 26.6-3 3.0 below low normal Not Available [facility] ([facility]) [address] [place], [address], 12/30/2023 09:41:49 12/29/19 24 12/30/2023 CBC WITH DIFFE RENTI AL/PL ATELE T MCHC 28.4 g/dL 31.5-3 5.7 below low normal Not Available [facility] ([facility]) [address] [place], [address], 12/30/2023 09:41:49 12/29/19 24 12/30/2023 CBC WITH DIFFE RENTI AL/PL ATELE T RDW 20.1 % 11.7-1 5.4 above high normal Not Available [facility] ([facility]) [address] [place], [address], 12/30/2023 09:41:49 12/29/19 24 12/30/2023 CBC WITH DIFFE RENTI AL/PL ATELE T platelets 385 x10e3 /uL 150-45 0 Not Available [facility] ([facility]) [address] [place], [address], 12/30/2023 09:41:49 12/29/19 24 12/30/2023 CBC WITH DIFFE RENTI AL/PL ATELE T neutrophils 53 % not estab. Not Available [facility] ([facility]) [address] [facility], [place], [address], 12/30/2023 09:41:49 12/29/19 24 12/30/2023 CBC WITH DIFFE RENTI AL/PL ATELE T lymphs 37 % not estab. Not Available [facility] ([facility]) [address] [facility], [place], [address], 12/30/2023 09:41:49 12/29/19 24 12/30/2023 CBC WITH DIFFE RENTI AL/PL ATELE T monocytes 7 % not estab. Not Available [facility] ([facility]) [address] [facility], [place], [address], 12/30/2023 09:41:49 12/29/19 24 12/30/2023 CBC WITH DIFFE RENTI AL/PL ATELE T eos 2 % not estab. Not Available [facility] ([facility]) [address] [facility], [place], [address], 12/30/2023 09:41:49 12/29/19 24 12/30/2023 CBC WITH DIFFE RENTI AL/PL ATELE T basos 1 % not estab. Not Available [facility] ([facility]) [address] [facility], [place], [address], 12/30/2023 09:41:49 12/29/19 24 12/30/2023 CBC WITH DIFFE RENTI AL/PL ATELE T immature cells INK BLENDER Not Available [facility] ([facility]) [address] [place], [address], 12/30/2023 09:41:49 12/29/19 24 12/30/2023 CBC WITH DIFFE RENTI AL/PL ATELE T neutrophils (absolute) 4.0 x10e3 /uL 1.4-7. 0 Not Available [facility] ([facility]) [address] [place], [address], 12/30/2023 09:41:49 12/29/19 24 12/30/2023 CBC WITH DIFFE RENTI AL/PL ATELE T lymphs (absolute) 2.8 x10e3 /uL 0.7-3. 1 Not Available [facility] ([facility]) [address] [facility], [place], [address], 12/30/2023 09:41:49 12/29/19 24 12/30/2023 CBC WITH DIFFE RENTI AL/PL ATELE T monocytes(ab solute) 0.6 x10e3 /uL 0.1-0. 9 Not Available [facility] ([facility]) [address] [place], [address], 12/30/2023 09:41:49 12/29/19 24 12/30/2023 CBC WITH DIFFE RENTI AL/PL ATELE T eos (absolute) 0.1 x10e3 /uL 0.0-0. 4 Not Available [facility] ([facility]) [address] [facility], [place], [address], 12/30/2023 09:41:49 12/29/19 24 12/30/2023 CBC WITH DIFFE RENTI AL/PL ATELE T baso (absolute) 0.1 x10e3 /uL 0.0-0. 2 Not Available [facility] ([facility]) [address] [facility], [place], [address], 12/30/2023 09:41:49 12/29/19 24 12/30/2023 CBC WITH DIFFE RENTI AL/PL ATELE T immature granulocytes 0 % not estab. Not Available [facility] ([facility]) [address] [place], [address], 12/30/2023 09:41:49 12/29/19 24 12/30/2023 CBC WITH DIFFE RENTI AL/PL ATELE T immature grans (abs) 0.0 x10e3 /uL 0.0-0. 1 Not Available [facility] ([facility]) [address], [place], [address], 12/30/2023 09:41:49 12/29/19 24 12/30/2023 CBC WITH DIFFE RENTI AL/PL ATELE T NRBC INK BLENDER Not Available [facility] ([facility]) [address], [place], [address], 12/30/2023 09:41:49 12/29/19 24 12/30/2023 CBC WITH DIFFE RENTI AL/PL ATELE T hematology comments: INK BLENDER Not Available [facility] ([facility]) [address], [place], [address], 12/30/2023 09:41:49 12/29/19 24 12/30/2023 COMP. METAB OLIC PANEL (14) glucose 98 mg/dL 70-99 Not Available [facility] ([facility]) [address] [facility], [place], [address], 12/30/2023 09:41:51 12/29/19 24 12/30/2023 COMP. METAB OLIC PANEL (14) BUN 20 mg/dL 8-27 Not Available [facility] ([facility]) [address] [facility], [place], [address], 12/30/2023 09:41:51 12/29/19 24 12/30/2023 COMP. METAB OLIC PANEL (14) creatinine 0.76 mg/dL 0.57-1 .00 Not Available [facility] ([facility]) [address] [facility], [place], [address], 12/30/2023 09:41:51 12/29/19 24 12/30/2023 COMP. METAB OLIC PANEL (14) BUN/creatini ne ratio 26 12-28 Not Available [facility] ([facility]) [address] [facility], [place], [address], 12/30/2023 09:41:51 06/06/20 24 12/30/2023 COMP. METAB OLIC PANEL (14) sodium 132 mmol/ L 134-14 4 below low normal Not Available [facility] ([facility]) [address] [facility] [place], [address], 12/30/2023 09:41:51 12/29/19 24 12/30/2023 COMP. METAB OLIC PANEL (14) potassium 4.9 mmol/ L 3.5-5. 2 Not Available [facility] ([facility]) [address] [facility] [place], [address], 12/30/2023 09:41:51 12/29/19 24 12/30/2023 COMP. METAB OLIC PANEL (14) chloride 93 mmol/ L 96-106 below low normal Not Available [facility] ([facility]) [address] [facility] [place], [address], 12/30/2023 09:41:51 12/29/19 24 12/30/2023 COMP. METAB OLIC PANEL (14) carbon dioxide, total 23 mmol/ L 20-29 Not Available [facility] ([facility]) [address] [facility] [place], [address], 12/30/2023 09:41:51 12/29/19 24 12/30/2023 COMP. METAB OLIC PANEL (14) calcium 10.4 mg/dL 8.7-10 .3 above high normal Not Available [facility] ([facility]) [address] [facility] [place], [address], 12/30/2023 09:41:51 12/29/19 24 12/30/2023 COMP. METAB OLIC PANEL (14) protein, total 6.9 g/dL 6.0-8. 5 Not Available [facility] ([facility]) [address] [facility] [place], [address], 12/30/2023 09:41:51 12/29/19 24 12/30/2023 COMP. METAB OLIC PANEL (14) albumin 4.5 g/dL 3.7-4. 7 Not Available [facility] ([facility]) [address] [facility] [place], [address], 12/30/2023 09:41:51 12/29/19 24 12/30/2023 COMP. METAB OLIC PANEL (14) globulin, total 2.4 g/dL 1.5-4. 5 Not Available [facility] ([facility]) [address] [facility] [place], [address], 12/30/2023 09:41:51 12/29/19 24 12/30/2023 COMP. METAB OLIC PANEL (14) A/G ratio 1.9 1.2-2. 2 Not Available [facility] ([facility]) [address] [facility] [place], [address], 12/30/2023 09:41:51 12/29/19 24 12/30/2023 COMP. METAB OLIC PANEL (14) bilirubin, total 0.2 mg/dL 0.0-1. 2 Not Available [facility] ([facility]) [address] [facility] [place], [address], 12/30/2023 09:41:51 12/29/19 24 12/30/2023 COMP. METAB OLIC PANEL (14) alkaline phosphatase 115 IU/L 44-121 Not Available [facility]) [address] [facility] [place], [address], 12/30/2023 09:41:51 12/29/19 24 12/30/2023 COMP. METAB OLIC PANEL (14) AST (SGOT) 16 IU/L 0-40 Not Available [facility] ([facility]) [address] [place], [address], 12/30/2023 09:41:51 12/29/19 24 12/30/2023 COMP. METAB OLIC PANEL (14) ALT (SGPT) 10 IU/L 0-32 Not Available [facility] ([facility]) [address] [place], [address], 12/30/2023 09:41:51 12/29/19 24 12/30/2023 LIPID PANEL cholesterol, total 177 mg/dL 100-19 9 Not Available [facility] ([facility]) [address] [place], [address], 12/30/2023 09:41:52 12/29/19 24 12/30/2023 LIPID PANEL triglyceride s 167 mg/dL 0-149 above high normal Not Available [facility] ([facility]) [address] [place], [address], 12/30/2023 09:41:52 12/29/19 24 12/30/2023 LIPID PANEL HDL cholesterol 61 mg/dL >39 Not Available [facility]) [address] [place], [address], 12/30/2023 09:41:52 12/29/19 24 12/30/2023 LIPID PANEL VLDL cholesterol [place] 28 mg/dL 5-40 Not Available [facility] ([facility]) [address] [place], [address], 12/30/2023 09:41:52 12/29/19 24 12/30/2023 LIPID PANEL LDL chol calc ([facility]) 88 mg/dL 0-99 Not Available [facility] ([facility]) [address] [place], [address], 12/30/2023 09:41:52 12/29/19 24 12/30/2023 LIPID PANEL comment: INK BLENDER Not Available [facility] ([facility]) [address] [place], [address], 12/30/2023 09:41:52 12/29/19 24 12/30/2023 HEMOG LOBIN A1C hemoglobin A1C 7.3 % 4.8-5. 6 above high normal Predi abete s: 5.7 - 6.4 Diabe raman: >6.4 Glyce brandon contr ol for adult s with diabe raman: <7.0 Not Available [facility] ([facility]) [address] [facility], [place], [address], 12/30/2023 09:41:53 12/29/19 24 12/30/2023 VITAM IN B12 vitamin B12 227 pg/mL 232-12 45 below low normal Not Available [facility] ([facility]) [address] [facility], [place], [address], 12/30/2023 09:41:55 12/29/19 24 12/30/2023 MAGNE SIUM magnesium 1.9 mg/dL 1.6-2. 3 Not Available [facility] ([facility]) [address] [facility], [place], [address], 12/30/2023 09:41:56 05/17/20 24 05/17/2024 HbA1c (hemo globi n A1c), blood HbA1c 7.3 Not Available [facility] [address], [place], [address], 05/17/2024 14:32:19 07/28/19 25 07/28/2024 CT, thora cic spine , w/o contr ast No observ ation record ed. [facility] [address], [place], [address], 08/10/2024 09:52:53 07/28/19 25 07/28/2024 CT, cervi chap[place] spine , w/o contr ast No observ ation record ed. [facility] [address], [place], [address], 08/10/2024 09:53:07 07/28/19 25 07/28/2024 CT, lumba r spine , w/o contr ast No observ ation record ed. [place] [id number], [place], [address], 08/10/2024 09:54:06 07/28/19 25 07/28/2024 CT, head + brain , w/o contr ast No observ ation record ed. [facility] [address], [place], [address], 08/10/2024 09:54:23 07/28/19 25 07/28/2024 imagi ng/di agnos tic resul t No observ ation record ed. [place] [id number], [place], [address], 08/10/2024 09:55:09 07/28/19 25 07/28/2024 imagi ng/di agnos tic resul t No observ ation record ed. [place] [id number], [place], [address], 08/10/2024 09:55:36 07/28/19 25 07/28/2024 XR, chest No observ ation record ed. [place] [id number], [place], [address], 08/10/2024 09:55:46 07/29/19 25 07/28/2024 imagi ng/di agnos tic resul t No observ ation record ed. [facility] [address], [place], [address], 08/10/2024 09:57:49 08/08/19 25 08/08/2024 XR, chest No observ ation record ed. [email or web address] [place] [address], [place], [address], 08/09/2024 16:55:48 08/13/19 25 08/08/2024 elect rocraisa gomezgr am No observ ation record ed. [email or web address] [facility] [address], [place], [address], 08/16/2024 11:33:10 Result Notes None recorded. Problems Name Problem SNOMED Code Status Onset Date Resolution Date Notes Provider Name and Address Organization Details Recorded Time Acute kidney injury 05905148 Active Rachna Darrel null, [place] [facility] - & [place] 3 11:44:19 Emphysema tous pyeloneph ritis 648583727 Active Rachna Darrel [place] [facility] [place] 3 11:44:19 Dizziness 406101462 Active Rachna [place]rel [place] [facility] [place] & 3 11:44:19 Hydroneph rosis 64557395 Active Rach[place] [facility] [place] & 3 11:44:19 Septic shock 92863216 Active Rachna Darrel [place] [facility] [place] & [place] 3 11:44:19 Sepsis 60692890 Active Rachna Darrel [place] [facility] [place] 3 11:44:19 Basal cell carcinoma 7297197 Active Basal cell carcinoma Rachna Darrel [place] [facility] [place] & 3 11:44:19 Dysphagia as a late effect of cerebrova scular accident 110519379 Active ICD-9: 438.82 - Dysphagia as late effect of cerebrova scular disease Rachna Darrel null, [place] [facility] - [place] & [place] 3 11:44:19 Hearing loss 45137005 Active 2021 Hearing loss Rachna [place]rel [place] [facility] [place] & 3 11:44:19 Ankle pain 545318614 Active 2013 Rachna Darrel null[place] [facility] [place] & [place] 3 11:44:19 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 450094323 Active 2014 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 H emiplegia of nondomina nt side as late effect of cerebrova scular disease H emiplegia of nondomina nt side as late effect of cerebrova scular disease H emiplegia of nondomina nt side as late effect of cerebrova scular disease Rachna link, [place] - [facility] - [place] & [place] 3 11:44:19 Depressiv e disorder 98518994 Active 2013 Rachna link, [place] - [facility] - [facility] & [place] 3 11:44:19 Osteopeni a 880566022 Active 2013 Rachna link, [place] - [facility] - [facility] & [place] 3 11:44:19 Type 2 diabetes mellitus 67100290 Active 2020 Rachnaekaterina link, [place] - [facility] - [facility] & [place] 3 11:44:19 Hemorrhoi ds 45692833 Active Hemorrhoi ds Rachnaglenis link, [place] - [facility] - [facility] & [place] 3 11:44:19 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 Rachna link, [place] - [facility] - [place] & [place] 3 11:44:19 Tinnitus 35490345 Active Tinnitus Rachnaekaterina link, [place] - [facility] - [place] & [place] 3 11:44:19 Recurrent urinary tract infection 779247895 Active 2021 Rachna link, [place] - [facility] - [facility] & [place] 3 11:44:19 Gastroeso phageal reflux disease without esophagit is 871410347 Active 2014 Gastro-es ophageal reflux disease without esophagit is Gastro -esophage al reflux disease without esophagit is Gastro -esophage al reflux disease without esophagit is Gastro -esophage al reflux disease without esophagit is Rachna link, [place] - [facility] - [facility] & [place] 3 11:44:19 Hypertens jey disorder 19157343 Active Hypertens ion YANG Diaz [facility] & [place] 3 11:44:19 Urinary tract infectiou s disease 53484585 Active Urinary tract infectiou s disease U rinary tract infection Rachna link, [place] Barrios [facility] - [facility] & [place] 2 08:43:33 Gastroeso phageal reflux disease 578965516 Active 2013 YANG Diaz [facility] - [facility] & [place] 3 11:44:19 Hyperlipi demia 26560584 Active 2014 Hyperlipi demia Hyp erlipidem ia Hyperl ipidemia Hyperlipi demia YANG Diaz [facility] - [facility] & [place] 3 11:44:19 Colitis presumed infectiou s 83373048 Active Colitis - presumed infectiou s origin YANG Diaz [facility] - [facility] & [place] 3 11:44:19 Pain of joint of ankle and/or foot 607212827 Active 2013 YANG Diaz [facility] & [place] 3 11:44:19 Influenza vaccine needed 34656467094 06 Active Influenza vaccine needed YANG Diaz [facility] - [facility] & [place] 3 11:44:19 Acute upper respirato ry infection 52116605 Active 2013 Acute upper respirato ry infection Acute upper respirato ry infection YANG Diaz [facility] & [place] 3 11:44:19 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 YANG Diaz [facility] - [place] & [place] 3 11:44:19 Accessory navicular bone of foot 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 YANG Diaz [facility] - [facility] & [place] 3 11:44:19 Type 2 diabetes mellitus without complicat ion 960287334 Active 2014 Type II diabetes mellitus without complicat ion Type II diabetes mellitus without complicat ion Type II diabetes mellitus without complicat ion Type II diabetes mellitus without complicat ion Rachna link[place] [facility] [place] 3 11:44:19 Restless legs 06247271 Active 2013 Rachna Rojo [place] [facility] [place] 3 11:44:19 Disorder of tendon 99774051 Active 2013 Rachna Rojo [place] [facility] [place] 3 11:44:19 Mixed urinary incontine nce 768462517 Active 2021 Rachna Rojo [place] [facility] [place] 3 11:44:19 Actinic keratosis 396711648 Active 2013 Rachna Rojo [place] [facility] [place] 3 11:44:19 Nocturia 875092821 Active 2021 Rachnaekaterina Rojo [place] [facility] [place] 3 11:44:19 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 768960490 Active 2014 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 D ysphasia as late effect of cerebrova scular disease D ysphasia as late effect of cerebrova scular disease D ysphasia as late effect of cerebrova scular disease Rachna Rojo null, [place] - [facility] - & 3 11:44:19 Intertrig o 90922876 Active 2013 Rachna Darrel null, [place] - [facility] - y & 3 11:44:19 Aspiratio n into respirato ry tract 167865662 Active 2013 Rachna Darrel null, [place] - [facility] - y & 3 11:44:19 Neoplasm of meninges 350594386 Active 2020 Rachna Darrel null, [place] - [facility] - y & [place] 3 11:44:19 Diabetes mellitus 52140811 Active Diabetes mellitus YANG Diaz [facility] [place] & [place] 3 11:44:19 Kidney stone 40799422 Active 2021 Not Available [facility] 2 13:34:48 History of diabetes mellitus 468343090 Active 2021 YANG Diaz LPNT [facility] & [place] 3 11:44:19 Benign neoplasm of meninges 567668409 Active 2017 YANG Diaz [facility] [place] & [place] 3 11:44:19 Essential hypertens ion 63555010 Active 2014 Essential hypertens ion Essen tial hypertens ion Essen tial hypertens ion Essen tial hypertens ion YANG Diaz [facility] & [place] 3 11:44:19 Notes:Problem Name: UNK Prob chato Code: UNK Problem Code Type: UNK Status: Active - Some problems listed in Document: #[id number] could not be added to this patient's chart. Please review this document and add these problems to the patient's chart manually as needed. Problem Notes None recorded. Procedures Surgical History Date Name Laterality Status Provider Name and Address Organization Details Recorded Time 023 catheterization of ureter completed Columba Barrios LPNT [facility] & [place] 06/09/2023 08:58:48 023 percutaneous extraction of kidney stone with fragmentation procedure completed Columba Barrios LPNT [facility] & [place] 06/09/2023 09:00:45 023 Cystourethroscopy completed Columba Barrios LPNT [facility] & [place] 04/27/2023 15:33:55 019 tooth extraction completed Luciana SHOEMAKER [facility] & [place] 03/23/2023 14:16:15 hysterectomy completed Luciana SHOEMAKER [facility] & [place] 03/23/2023 14:14:52 cystoscopy completed Luciana Turcios [facility] & [place] 03/23/2023 14:16:32 cataract surgery completed Luciana kalen [facility] & [place] 03/23/2023 14:17:19 Closure of eyelid by suture [facility] [place] [facility] 14:18:03 [facility] [place] [facility] 14:18:37 Imaging Results Imaging Date Name Status LastModified by Organization Details LastModified Time 07/28/2024 CT, thoracic spine, w/o contrast completed [facility] [address], [place], [address], 08/10/2024 09:52:53 07/28/2024 CT, cervical spine, w/o contrast completed [facility] [address], [place], [address], 08/10/2024 09:53:07 07/28/2024 CT, lumbar spine, w/o contrast completed [facility] [address], [place], [address], 08/10/2024 09:54:06 07/28/2024 CT, head + brain, w/o contrast completed [facility] [address], [place], [address], 08/10/2024 09:54:23 07/28/2024 imaging/diagnostic result completed [facility] [address], [place], [address], 08/10/2024 09:55:09 07/28/2024 imaging/diagnostic result completed [facility] [address], [place], [address], 08/10/2024 09:55:36 07/28/2024 XR, chest completed [facility] [address], [place], [address], 08/10/2024 09:55:46 07/28/2024 imaging/diagnostic result completed [facility] [address], [place], [address], 08/10/2024 09:57:49 08/08/2024 XR, chest completed [email or web address], [place], [address], 08/09/2024 16:55:48 08/08/2024 electrocardiogram completed [email or web address] [facility] [address], [place], [address], 08/16/2024 11:33:10 Procedure Notes None recorded. Medical Equipment None Reported. Allergies Allergen ID Allergen Name Allergen Category Reaction Reaction Severity Criticality Documentation Date Start Date Code Code System Note Provider Name and Address Organization Details Recorded Time 16345 Substance with sulfonami de structure and antibacte rial mechanism of action (substanc e) medicatio n hives Not available Not available 04/15/2022 [id number] SNOMED Eliane Umesh [facility] & [place] 2 12:16:07 4727 nitrofura ntoin medicatio n rash Not available Not available 04/01/2022 7454 RxNorm Also known as Macro danti n Columba Watson [facility] & [place] 3 08:51:01 19716 adhesive tape environme nt,medica tion rash Not available Not available 03/23/2023 53166 UNK Luciana link [facility] & [place] 3 14:14:12 58698 penicilli n V Not available rash Not available Not available 04/21/2023 7984 RxNorm Other react ions and sever ities : 'Drug -daiana myles nause a and vomit ing'. Rachna link [facility] & [place] 3 11:44:01 19001 clindamyc in Not available Not available Not available Not available 04/21/2023 2582 RxNorm Other react ions and sever ities : 'Adve rse react ion to subst ance' . Rachna Rojo [facility], [place] - [facility] - [place] & [place] 3 11:44:01 Medications Name Sig Start Date Stop Date Status Note LastModified by Organization Details LastModified Time tetracycli ne 500 mg capsule Take 1 {capsule _on_an_e mpty_sto mach} twice a day by oral route. 11/12 completed Not Available Not Available Not Available atorvastat in 40 mg tablet Take 1 tablet every day by oral route. 2023 active Not Available Not Available Not Avai lable albuterol sulfate 0.63 mg/3 mL solution for nebulizati on Inhale 3 mL every 6-8 hours by inhalati on route as needed for 30 days. 2023 active Not Available Not Available Not Avai lable atorvastat in 20 mg tablet Take 40 mg by oral route. 04/21 completed Not Available Not Available Not Available loperamide 2 mg capsule 11/12 completed Not Available Not Available Not Available albuterol sulfate 1.25 mg/3 mL solution for nebulizati on Inhale 0.63 mg by inhalati on route. 04/21 completed Not Available Not Available Not Available minocyclin e 100 mg capsule 03/29 completed Not Available Not Available Not Available promethazi ne 12.5 mg tablet Take 1 tablet every 8 hours by oral route as needed. 12/27 completed Not Available Not Available Not Available ciprofloxa david 400 mg/200 mL in 5 % dextrose intravenou s piggyback Infuse 400 mg by intraven . route. 04/21 completed Not Available Not Available Not Available metformin 850 mg tablet TAKE ONE TABLET BY MOUTH TWICE DAILY active Not Available Not Available No t Available cyanocobal chavez (vit B-12) 1,000 mcg tablet TAKE ONE TABLET BY MOUTH EVERY DAY active Not Available Not Available No t Available ciprofloxa david 500 mg tablet Take 1 tablet twice a day by oral route for 7 days. 06/14 completed Not Available Not Available Not Available omeprazole 40 mg capsule,de layed release TAKE ONE CAPSULE BY MOUTH EVERY DAY active Not Available Not Available No t Available vancomycin 1,000 mg intravenou s injection 1000 mg by intraven . route. 04/08 completed Not Available Not Available Not Available acetaminop hen 500 mg tablet Take 500 mg by oral route. 04/21 completed Not Available Not Available Not Available ceftriaxon e 1 gram solution for injection 1 g by injectio n route. 04/08 completed Not Available Not Available Not Available methenamin e hippurate 1 gram tablet TAKE 1/2 TABLET BY MOUTH EVERY MORNING AND 1/2 TABLET EVERY EVENING 06/14 completed Not Available Not Available Not Available potassium chloride 10 mEq/100mL in sterile water intravenou s piggyback Inject 0 milliequ ivalents by intraven . route. 04/21 completed Not Available Not Available Not Available potassium chloride ER 20 mEq tablet,ext ended release(pa rt/cryst) Take 0 milliequ ivalents by oral route. 04/21 completed Not Available Not Available Not Available metoclopra mide 5 mg tablet Take 10 mg by oral route. 04/21 completed Not Available Not Available Not Available tamsulosin 0.4 mg capsule Take 0.4 mg by oral route. 04/21 completed Not Available Not Available Not Available meclizine 25 mg tablet Take 1 tablet 3 times a day by oral route as needed. 04/21 completed Not Available Not Available Not Available pantoprazo le 40 mg tablet,del ayed release Take 40 mg by oral route. 04/21 completed Not Available Not Available Not Available cyanocobal chavez (vit B-12) 1,000 mcg/mL injection solution Inject 1 mL every month by subcutan eous route. 2023 active Not Available Not Available Not Avai lable meropenem 1 gram intravenou s solution 1 g by intraven . route. 04/08 completed Not Available Not Available Not Available docusate sodium 100 mg capsule 100 mg by oral route. 04/10 completed Not Available Not Available Not Available alcohol swabs Apply 1 ea by topical route. 04/21 completed Not Available Not Available Not Available lisinopril 5 mg tablet 04/21 completed Not Available Not Available Not Available hydrochlor othiazide 25 mg tablet TAKE ONE TABLET BY MOUTH EVERY DAY active Not Available Not Available No t Available mupirocin 2 % topical ointment Apply 1 {applica tion} twice a day by topical route. 04/21 completed Not Available Not Available Not Available sodium chloride 0.9 % intravenou s solution Inject 1000 mL by intraven . route. 04/21 completed Not Available Not Available Not Available levofloxac in 500 mg tablet 08/12 completed Not Available Not Available Not Available estradiol 0.01% (0.1 mg/gram) vaginal cream APPLY A PEA SIZED AMOUNT OF CREAM TO THE URETHRA DAILY 09/16 completed Not Available Not Available Not Available hydrocorti sone 2.5 % topical ointment 03/29 completed Not Available Not Available Not Available ketoconazo le 2 % topical cream 03/29 completed Not Available Not Available Not Available ondansetro n 4 mg disintegra ting tablet Place 1 tablet every 8 hours by translin gual route as needed. 12/27 completed Not Available Not Available Not Available cefdinir 300 mg capsule TAKE 1 CAPSULE BY MOUTH EVERY 12 HOURS FOR 7 DAYS 03/29 completed Not Available Not Available Not Available lisinopril 2.5 mg tablet Take 1 tablet every day by oral route. 2023 active Not Available Not Available Not Avai lable doxycyclin e hyclate 100 mg tablet TAKE 1 TABLET BY MOUTH EVERY 12 HOURS FOR 5 DAYS THEN TAKE 1 TABLET BY MOUTH AT BEDTIME FOR 30 DAYS 06/14 completed Not Available Not Available Not Available atenolol 50 mg tablet Take 1 tablet every day by oral route. 2023 active Not Available Not Available Not Avai labjessica Microlet Lancet USE TO CHECK FASTING BLOOD SUGAR TWICE EVERY DAY active Not Available Not Available No t Available metoclopra mide 10 mg tablet TAKE ONE TABLET BY MOUTH TWICE DAILY 05/17 completed Made her very sleepy Not Available Not Available Not Available Ventolin HFA 90 mcg/actuat ion aerosol inhaler Inhale 2 {puffs_a s_needed }s 4 times a day by inhalati on route. 06/14 completed Not Available Not Available Not Available oxycodone 5 mg tablet Take 10 mg by oral route. 04/21 completed Not Available Not Available Not Available Levophed 1 mg/mL intravenou s solution 8 mg by intraven . route. 04/10 completed Not Available Not Available Not Available enoxaparin 40 mg/0.4 mL subcutaneo us syringe Inject 40 mg by sub-q route. 04/21 completed Not Available Not Available Not Available dextrose 5 % in water (D5W) intravenou s solution 250 mL by intraven . route. 04/10 completed Not Available Not Available Not Available dextrose 10 % in water (D10W) intravenou s solution Inject 250 mL by intraven . route. 04/21 completed Not Available Not Available Not Available linezolid in 5% dextrose in water 600 mg/300 mL intravenou s piggyback 600 mg by intraven . route. 04/09 completed Not Available Not Available Not Available minocyclin e 100 mg tablet Take 1 tablet every 12 hours by oral route for 22 days. 03/29 completed Not Available Not Available Not Available Premarin 0.625 mg/gram vaginal cream 03/29 completed Not Available Not Available Not Available vancomycin 1 gram/200 mL in dextrose 5 % intravenou s piggyback 1 g by intraven . route. 04/09 completed Not Available Not Available Not Available peg 400-propyl alissa glycol (PF) 0.4 %-0.3 % eye drops in a dropperett e as directed Ophthalm ic 08/12 completed Not Available Not Available Not Available sodium chloride 0.9 % intravenou s piggyback 50 mL by intraven . route. 04/08 completed Not Available Not Available Not Available Januvia 50 mg tablet 100 mg by oral route. 04/09 completed Not Available Not Available Not Available Januvia 100 mg tablet 11/12 completed Not Available Not Available Not Available ondansetro n HCl (PF) 4 mg/2 mL injection solution 4 mg by injectio n route. 04/08 completed Not Available Not Available Not Available hydrochlor othiazide 12.5 mg tablet 12.5 mg by oral route. 04/09 completed Not Available Not Available Not Available FeroSul 325 mg (65 mg iron) tablet TAKE ONE TABLET BY MOUTH EVERY DAY active Not Available Not Available No t Available BD PosiFlush Normal Saline 0.9 % injection syringe Take 10 mL by injectio n route. 04/21 completed Not Available Not Available Not Available magnesium sulfate 2 gram/50 mL (4 %) in water intravenou s piggyback Infuse 0 g by intraven . route. 04/21 completed Not Available Not Available Not Available Humalog KwikPen (U-100) Insulin 100 unit/mL subcutaneo us Inject 0 unts by sub-q route. 04/21 completed Not Available Not Available Not Available magnesium sulfate 4 gram/100 mL (4 %) in water intravenou s piggyback 4 g by intraven . route. 04/09 completed Not Available Not Available Not Available melatonin 5 mg tablet Take 5 mg by oral route. 04/21 completed Not Available Not Available Not Available DOK 100 mg tablet Take 1 tablet every day by oral route as needed. 09/16 completed Not Available Not Available Not Available metoclopra mide 10 mg disintegra ting tablet Take 1 {tablet} 3 times a day by oral route. 05/03 completed Not Available Not Available Not Available Solu-Jess f Act-O-Vial (PF) 100 mg/2 mL solution for injection Take 100 mg by injectio n route. 04/21 completed Not Available Not Available Not Available HealthyLax 17 gram oral powder packet Take 17 g by oral route. 04/21 completed Not Available Not Available Not Available Refresh Lacri-Lube 56.8 %-42.5 % eye ointment 1 patrice by ophthalm ic route. active Not Available Not Available No t Available Easy Touch Twist Lancets 30 gauge test blood sugars TWICE DAILY DIRECTED active Not Available Not Available No t Available True Metrix Glucose Test Strip USE TO TEST BLOOD SUGAR TWICE DAILY active Not Available Not Available No t Available True Metrix Glucose Test Strip 1 daily to check sugars 04/21 completed Not Available Not Available Not Available OneTouch Delica Plus Lancet 33 gauge USE TO TEST BLOOD SUGAR TWICE DAILY active Not Available Not Available No t Available Vitals Date Recorded Body height Body mass index (BMI) Body weight Body temperature Heart rate Systolic blood pressure Diastolic blood pressure Provider Name and Address Organization Details Last Updated DateTime 3 162.56 cm 25.6 kg/m2 24617.9 8 g 97.6 [degF] 83 /min 116 mm[Hg] 64 mm[Hg] Rachna [place] - [facility] & [place] 3 14:23:35 Date Recorded Body height Body mass index (BMI) Body weight Body temperature Heart rate Systolic blood pressure Diastolic blood pressure Provider Name and Address Organization Details Last Updated DateTime 4 162.56 cm 25.4 kg/m2 81894.6 7 g 97.6 [degF] 78 /min 146 mm[Hg] 75 mm[Hg] Cathleen Makdebbie [place] - LPNT [facility] & [place] 4 14:24:00 Date Recorded Body height Body mass index (BMI) Body weight Body temperature Heart rate Systolic blood pressure Diastolic blood pressure Provider Name and Address Organization Details Last Updated DateTime 4 162.56 cm 25.2 kg/m2 14449.0 8 g 98.2 [degF] 74 /min 162 mm[Hg] 70 mm[Hg] Rachna [place] [facility] & [place] 4 16:10:04 Date Recorded Body height Body mass index (BMI) Body weight Heart rate Body temperature Systolic blood pressure Diastolic blood pressure Provider Name and Address Organization Details Last Updated DateTime 4 162.56 cm 25.4 kg/m2 67553.6 7 g 81 /min 98.3 [degF] 127 mm[Hg] 71 mm[Hg] Rachna Rojo [facility] & [place] 4 16:38:46 Date Recorded Body height Body mass index (BMI) Body weight Body temperature Oxygen saturation Oxygen saturation in Arterial blood by Pulse oximetry Heart rate Systolic blood pressure Diastolic blood pressure Provider Name and Address Organization Details Last Updated DateTime 4 162.56 cm 25.6 kg/m2 62842.2 6 g 97.3 [degF] 97 % 97 % 80 /min 116 mm[Hg] 64 mm[Hg] Anca Del Angel [facility] & [place] 4 14:13:54 Social History Question Answer Notes LastModified by Organizat ion Details LastModified Time Tobacco Smoking Status Never Smoker [facility] [place] 04/15/2022 11:49:50 Do You Have An Advance Directive? Yes Information n ot available 05/03/2022 What Is Your Level Of Alcohol Consumption? None Information not available 04/15/2022 Are You Blind Or Do You Have Difficulty Seeing? Yes Information n ot available 05/03/2022 Is Blood Transfusion Acceptable In An Emergency? Yes Information not available 05/03/2022 What Is Your Level Of Caffeine Consumption? None [email or web address] Information not available 11/12/2022 In The 14 Days Before Symptom Onset, Have You Had Close Contact With A Laboratory-confirm ed COVID-19 While That Case Was Ill? No Information n ot available 05/03/2022 In The 14 Days Before Symptom Onset, Have You Had Close Contact With A Person Who Is Under Investigation For COVID-19 While That Person Was Ill? No Information not available 05/03/2022 Have You Been To An Area Known To Be High Risk For COVID-19? No Information not available 05/03/2022 Are You Currently Employed? No Information not available 05/03/2022 Are You Deaf Or Do You Have Serious Difficulty Hearing? No Information not available 05/03/2022 What Type Of Diet Are You Following? REGULAR Information n ot available 05/03/2022 Have You Processed Blood Or Body Fluids From An Ebola Virus Disease Patient Without Appropriate PPE? No Information not available 05/03/2022 Do You Reside In Or Have You Traveled To An Area Where Ebola Virus Transmission Is Active? No Information not available 05/03/2022 Have There Been Any Changes To Your Family Or Social Situation? No Information no t available 05/03/2022 What Is The Fluoride Status Of Your Home? Unknown Information not available 05/03/2022 Are There Any Guns Present In Your Home? No Information not available 05/03/2022 Have You Recently Or Are You Planning To Travel To An Area With Zika Virus? No Information not available 05/03/2022 Do You Use Insect Repellent Routinely? Yes Information not available 05/03/2022 In General, Would You Say Your Health Is Good Information not available 05/03/2022 How Would You Describe The Condition Of Your Mouth And Teeth? including False Teeth Or Dentures? Good Information n ot available 05/03/2022 In The Past 7 Days, How Many Servings Of Fruits And Vegetables Did You Typically Eat Each Day? (1 Serving = 1 Cup Of Fresh Vegetables, 1? 2 Cup Of Cooked Vegetables, Or 1 Medium Piece Of Fruit. 1 Cup = Size Of A Baseball.) 5-6 Servings Per Day Information not available 05/03/2022 In The Past 7 Days, How Many Servings Of High Fiber Or Whole Grain Foods Did You Typically Eat Each Day? (1 Serving = 1 Slice Of 100% Whole Wheat Bread, 1 Cup Of Whole-grain Or High-fiber [id number]-yix Cereal, 1? 2 Cup Of Cooked Cereal Such As Oatmeal, Or 1? 2 Cup Of Cooked Brown Rice Or Whole Wheat Pasta.) 5-6 Servings Per Day Information not available 05/03/2022 In The Past 7 Days, How Many Servings Of Fried Or High-fat Foods Did You Typically Eat Each Day? (Examples Include Fried Chicken, Fried Fish, Joseph, [place], Potato Chips, [place] Chips, Doughnuts, Creamy Salad Dressings, And Foods Made With Whole Milk, Cream, Cheese, Or Mayonnaise.) 5-6 Servings Per Day Information not available 05/03/2022 In The Past 7 Days, How Many Sugar-sweetened (not Diet) Beverages Did You Typically Consume Each Day 1-2 Drinks Per Day Information not available 05/03/2022 Each Night, How Many Hours Of Sleep Do You Usually Get? 5-6 Hours Information not available 05/03/2022 Do You Snore Or Has Anyone Told You That You Snore? Yes [email or web address] Information not available 05/06/2023 In The Past 7 Days, How Often Have You Savannah Sleepy During The Daytime? Sometimes [email or web address] Information not available 05/06/2023 Do You Have Chronic Pain? No [email or web address] Information not available 05/06/2023 In The Past 7 Days, How Would You Rate Your Pain? Mild Pain(1-3) Information not available 05/03/2022 Are You In A Pain Management Program? No Information not available 05/03/2022 Do You Take Opioids For Your Pain? No Information not available 05/03/2022 How Often Is Stress A Problem For You In Handling Such Things As: Your Health, Your Finances, Your Family And Social Relationships, Your Work? Often [email or web address] Information not available 05/06/2023 How Often Do You Get The Social And Emotional Support You Need: Sometimes [email or web address] Information not available 05/06/2023 In The Past 7 Days, Did You Need Help From Others To Take Care Of Things Such As Laundry And Housekeep- Ing, Banking, Shopping, Using The Telephone, Food Preparation, Transportation, Or Taking Your Own Medications? Yes Information not available 05/03/2022 Do You Live Alone? Yes Inform ation not available 05/03/2022 Does Your Home Have Any Fall Risks (un-level Floors, Unfastened Rugs, Poor Lighting, Etc)? No Information not available 05/03/2022 Do You Feel Safe At Home? Yes [email or web address] Information not available 02/23/2024 Do You Have A Medical Power Of Co Op? Yes [email or web address] Information not available 02/23/2024 What Was The Date Of Your Most Recent Tobacco Screening? 05/06/2023 [email or web address] Information not available 05/06/2023 Do You Have Any Pets? No [email or web address] Information not available 11/12/2022 Do You Use Your Seat Belt Or Car Seat Routinely? Yes Information not available 05/03/2022 Do You Have Smoke And Carbon Monoxide Detectors In Your Home? Yes Information not available 05/03/2022 Are You Passively Exposed To Smoke? No Information no t available 05/03/2022 Do You Feel Stressed (tense, Restless, Nervous, Or Anxious, Or Unable To Sleep At Night)? [id number] Information not available 05/03/2022 Do You Use Any Illicit Or Recreational Drugs? No Information not available 04/15/2022 Do You Use Sunscreen Routinely? Yes Information not available 05/03/2022 Are You Currently In School? No Information not available 05/03/2022 Do You Or Have You Ever Used Any Other Forms Of Tobacco Or Nicotine? No [email or web address] Information not available 11/12/2022 Sex: Female Functional Status Question Answer Note LastModified by Organizat ion Details LastModified Time Do you have difficulty walking or climbing stairs? Yes Information not available 05/03/2022 Do you have transportation difficulties? No Information not available 05/03/2022 Are you able to walk? [email or web address] Information not available 05/03/2022 Do you have difficulty doing errands alone? Yes Information not available 05/03/2022 Are you able to care for yourself? Yes Information not available 05/03/2022 Do you have difficulty dressing or bathing? No Information not available 05/03/2022 What is your exercise level? None Information not available 05/03/2022 Mental Status Question Answer Note LastModified by Organization D etails LastModified Time Do you have difficulty concentrating, remembering or making decisions? No Information no t available 05/03/2022 Family History Relationship Description Onset Age of this Age Resolved Age Notes LastModified by Organization Details LastModified Time Father Arthritis [email or web address] Not availab le 03/23/2023 14:26:54 Father History of heart disorder [email or web address] Not available 2022 14:28:31 Father Metastatic malignant neoplasm to urinary bladder [email or web address] Not available 2022 14:30:06 Father History of macular degeneration [email or web address] Not available 14:30:48 Father Heart disease [email or web address] Not available 2023 12:25:49 Father Malignant tumor of stomach [email or web address] Not available 2023 12:27:26 Mother Arthritis mehlinger Not availab le 03/23/2023 14:26:54 Mother History of heart disorder [email or web address] Not available 2022 14:28:31 Mother Malignant tumor of pancreas [email or web address] Not available 2022 14:29:28 Mother Hypertensive disorder [email or web address] Not available 2022 15:34:25 Mother Heart disease [email or web address] Not available 2023 12:25:38 Unspecified Relation Cerebrovascu lar accident [email or web address] Not available 10/2022 15:34:35 Sister Diabetes mellitus [email or web address] Not available 2022 08:59:39 Medical History No medical history recorded. Gynecological HistoryNo gynecological history recorded. Obstetrics History GPAL:G 0 P 0 0 0 0 Immunizations Vaccine Type Date Status Note Provider Nam e and Address Organization Details Recorded Time pneumococcal polysaccharide PPV23 6 completed Not Available [facility] 06/14/2023 13:33:39 Influenza, high-dose, trivalent, PF 7 completed Not Available [facility] 06/14/2023 13:33:39 influenza, unspecified formulation 1 completed Not Available [facility] 06/14/2023 13:33:39 zoster live 2 completed Not Available [facility] 06/14/2023 13:33:39 COVID-19, mRNA, LNP-S, PF, 30 mcg/0.3 mL dose 1 completed Rachna Rojo null, [place] [facility] [place] [facility] [place] 04/21/2023 11:44:57 COVID-19, mRNA, LNP-S, PF, 30 mcg/0.3 mL dose 1 completed Rachna Rojo null, [place] [facility] [place] [facility] [place] 04/21/2023 11:44:57 COVID-19, mRNA, LNP-S, PF, 30 mcg/0.3 mL dose 1 completed Not Available [facility] 06/14/2023 13:33:39 Pneumococcal conjugate PCV 13 5 completed Not Available [facility] 04/15/2023 10:17:13 Influenza, split virus, quadrivalent, PF 5 completed Not Available [facility] 06/14/2023 13:33:39 Influenza, adjuvanted, quadrivalent, PF 3 completed Dakotah Leiva MD [address] , [place], [address], [place] [facility] & [place] 04/11/2023 09:30:49 Pneumococcal conjugate PCV20, polysaccharide AWX130 conjugate, adjuvant, PF 3 completed Dakotah Leiva MD [address] , [place], [address], [place] [facility] & [place] 04/11/2023 09:30:49 Influenza, adjuvanted, quadrivalent, PF 2 completed Dakotah Leiva MD [address] , [place], [address], [place] [facility] & [place] 05/09/2022 19:37:57 Influenza, high-dose, quadrivalent, PF 0 completed Rachna Rojo null, [place] [facility] & [place] 04/21/2023 11:44:57 Influenza, adjuvanted, trivalent, PF 4 completed Anca Del Angel null, [place] [facility] [place] [facility] [place] 05/18/2024 18:40:42 COVID-19, mRNA, LNP-S, PF, 50 mcg/0.5 mL 4 completed Anca Del Angel [place], [place] - [facility] [place] [facility] [place] 05/18/2024 18:40:42 Past Encounters Encounter ID Performer Location Encounter Start Date Encounter Closed Date Diagnosis/Indication Diagnosis SNOMED-CT Code Diagnosis ICD10 Code Diagnosis Note [id number] Dimple Thomas NP, S [facility], [facility],[address] [address] 04/15/2022 11:14:44 04/15/2022 12:20:58 Recurrent urinary tract infection 744496834 N39.0 UA positive for leukocytes . 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 Diabetes mellitus 737101 09 E11.9 A1c good today. Patient has been counselled on routine diabetic management including dietary and lifestyle changes. We will check A1c atleast every 6 mos and Microalbum in yearly. Diabetic eye exam has been recommende d yearly as well. Routine foot care including routine self exams recommende d. Recurrent urinary tract infection 270209498 N39.[address] Nicholson as Dr. Luke has yet to do this. CEFDINIR 300 MG P.O. B.I.D. SENT TO THE PHARMACY TODAY TO START GIVEN HER PERSISTENT SYMPTOMS. WE WILL MAKE REFERRAL On to urology. 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 Continue the current prescribed regimen with no changes today. Diabetes mellitus 862081 09 E11.9 A1c good today. Patient has been counselled on routine diabetic management including dietary and lifestyle changes. We will check A1c atleast every 6 mos and Microalbum in yearly. Diabetic eye exam has been recommende d yearly as well. Routine foot care including routine self exams recommende d. 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 No changes needed today. I have asked the patient to keep regular office visits. If needed the patient can return for a nurse visits for follow up to have routine regular BP checks with our office. Also a home log is encouraged . Gastroesop hageal reflux disease 304041496 K21.9 Symptoms are stable and well controlled on the current GERD regimen. There are no signs or symptoms of warning/re d flag concerns. Pt denies: dysphagia, odynophagi a, or blood in stool. If sxs start to worsen or change the pt will RTC. Hearing loss 75287903 H9 1.90 Working to try and get hearing aides at an affordable location and [place]. Hyperlipidemia 71708401 E78.5 Pt is counselled on routine dietary and lifestyle changes including low fat and low carb diets. Routine lipid panels yearly. Cardiac risk discussed with patient as well today. No changes to lipid regimen today. Pt will work on lifestyle changes to modify risk factors and lipid levels Mixed urin uzma incontinence 864798746 N39.46 FU with urology and ID. Re-educate d her on the goal of the premarin cream. Recurrent urinary tract infection 907351030 N39.0 Type 2 cassia betes mellitus 04738960 E11.9 Patient has been counselled on routine diabetic management including dietary and lifestyle changes. We will check A1c atleast every 6 mos and Microalbum in yearly. Diabetic eye exam has been recommende d yearly as well. Routine foot care including routine self exams recommende d. Benign par oxysmal positional vertigo 057098171 H81.13 Constipation 48810869 K5 9.00 [id number] Dimple Thomas NP, S [facility] [address] [facility],[place] [address] 10/19/2022 12:57:20 10/19/2022 13:47:59 Recurrent urinary tract infection 887197427 N39.0 UA positive today. Send for culture and sensitivit y. Patient is currently asymptomat ic. Will await urine culture results. Once urine culture results have been received will call patient for further treatment. Patient will need office flexible cystoscopy in the near future once we can get UTIs cleared up. Kidney stone 74075276 N2 0.0 Mixed urin uzma incontinence 565375160 N39.46 Nocturia 050668443 R35.1 [id number] Dakotah Leiva MD [facility] [address] [facility] [address] [facility] [place] [address] 11/12/2022 12:57:24 11/12/2022 14:17:49 Gastroesophageal reflux disease 701221263 K21.9 Symptoms are stable and well controlled on the current GERD regimen. There are no signs or symptoms of warning/re d flag concerns. Pt denies: dysphagia, odynophagi a, or blood in stool. If sxs start to worsen or change the pt will RTC. A total of thirty minutes was spent in regard to this patient's visit reviewing labs and/or imaging, reviewing the patients records, conducting a physical examinatio n, preparing the treatment plan, and discussing the treatment plan with its risk and benefits with the patient today. All questions have been answered. Type 2 cassia betes mellitus 71750472 E11.9 Patient has been counselled on routine diabetic management including dietary and lifestyle changes. We will check A1c atleast every 6 mos and Microalbum in yearly. Diabetic eye exam has been recommende d yearly as well. Routine foot care including routine self exams recommende d. Hyperlipidemia 46999580 E78.5 Pt is counselled on routine dietary and lifestyle changes including low fat and low carb diets. Routine lipid panels yearly. Cardiac risk discussed with patient as well today. No changes to lipid regimen today. Pt will work on lifestyle changes to modify risk factors and lipid levels Hypertensive disorder 38 668776 I10 Hypertensi on is well controlled currently; Pt is tolerating the current medical regimen without any difficulty . No changes needed today. I have asked the patient to keep regular office visits. If needed the patient can return for a nurse visits for follow up to have routine regular BP checks with our office. Also a home log is encouraged . Benign sonny plasm of meninges 429138833 D32.[address] jeffrey scheduled Depressive disorder 3548 9007 F32.A Stable on current regimen today. Continue the current prescribed regimen with no changes today. 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 Continue the current prescribed regimen with no changes today. Essential hypertension 77848630 I10 Hypertensi on is well controlled currently; Pt is tolerating the current medical regimen without any difficulty . No changes needed today. I have asked the patient to keep regular office visits. If needed the patient can return for a nurse visits for follow up to have routine regular BP checks with our office. Also a home log is encouraged . Hemiplegia of nondominant side as late effect of cerebrovascular disease 542195112 I69.954 Stable on current regimen today. Continue the current prescribed regimen with no changes today. Recurrent urinary tract infection 717879179 N39.0 FU with urology [id number] Dimple Thomas NP, S [facility] [address] [place] [address],[address] [place] [id number] 11/16/2022 13:40:29 11/16/2022 14:57:46 Recurrent urinary tract infection 261408440 N39.0 UA clear todayWill keep on Minocyclin e until pt can have office cystoConti nue Methenamin e 500mg bidRTC for office cysto under local Nocturia 064070330 R35.1 Kidney stone 21323192 N2 0.0 Mixed urin uzma incontinence 403292168 N39.46 History of diabetes mellitus 253330047 Z86.39 [id number] Kana Luke MD [facility] [address] [place] [address],[address] [place] [id number] 12/09/2022 13:17:29 12/09/2022 14:04:22 Recurrent urinary tract infection 608120524 N39.0 Nocturia 210932113 R35.1 Kidney stone 44339392 N2 0.0 Urinary incontinence 165 305698 N39.46 History of diabetes mellitus 522756965 Z86.39 Urinary tr act infectious disease 84545590 N39.0 [id number] Kana Luke MD [facility] [address] [facility] [address] [place] [address] 12/30/2022 11:16:38 12/30/2022 13:02:12 Recurrent urinary tract infection 833606278 N39.0 Nocturia 899635236 R35.1 Kidney stone 10721371 N2 0.0 Mixed urin uzma incontinence 443023919 N39.46 History of diabetes mellitus 383442264 Z86.39 [id number] Dakotah Leiva MD [facility] [address] [facility] [place] [address] 03/29/2023 13:01:55 03/29/2023 14:05:45 Diabetes mellitus 53536965 E11.9 A1c good today. Patient has been counselled on routine diabetic management including dietary and lifestyle changes. We will check A1c atleast every 6 mos and Microalbum in yearly. Diabetic eye exam has been recommende d yearly as well. Routine foot care including routine self exams recommende d. Gastroesop hageal reflux disease 480457277 K21.9 Symptoms are stable and well controlled on the current GERD regimen. There are no signs or symptoms of warning/re d flag concerns. Pt denies: dysphagia, odynophagi a, or blood in stool. If sxs start to worsen or change the pt will RTC. A total of thirty minutes was spent in regard to this patient's visit reviewing labs and/or imaging, reviewing the patients records, conducting a physical examinatio n, preparing the treatment plan, and discussing the treatment plan with its risk and benefits with the patient today. All questions have been answered. Active immunization 5707 9002 Z23 Benign sonny plasm of meninges 661938252 D32.9 Last FU was 2022; FU with DR jeffrey now PRN only. Depressive disorder 1896 9007 F32.A Stable on current regimen today. Continue the current prescribed regimen with no changes today. 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 Continue the current prescribed regimen with no changes today. Essential hypertension 30515961 I10 Hypertensi on is well controlled currently; Pt is tolerating the current medical regimen without any difficulty . No changes needed today. I have asked the patient to keep regular office visits. If needed the patient can return for a nurse visits for follow up to have routine regular BP checks with our office. Also a home log is encouraged . Hyperlipidemia 74487973 E78.5 Pt is counselled on routine dietary and lifestyle changes including low fat and low carb diets. Routine lipid panels yearly. Cardiac risk discussed with patient as well today. No changes to lipid regimen today. Pt will work on lifestyle changes to modify risk factors and lipid levels Recurrent urinary tract infection 832001251 N39.0 FU with urology at . Asymptomai tic today. [id number] MD Britney Giles and Ricki roberts [address] [place] [address] 04/21/2023 11:32:49 04/21/2023 12:23:49 Sepsis due to urinary tract infection 421603059 N39.0 Resolved with appropriat e treatment of the acute pyelonephr itis with antibiotic therapy. Urolithiasis 88094516 N2 0.9 Patient currently has stent in place from the urologist. Has urology follow-up on April 26. No referral needed. Patient knows date, time, and location of referral. Acute nont raumatic kidney injury 2357252381 04310 N17.9 Secondary to obstructiv e uropathy. Creatinine 0.64 at the time of discharge. Lower urin uzma tract obstructive syndrome 69849608 N13.9 Patient with stent in place and follow up with Urology planned. Acute pyelonephritis 366 29377 N10 IV antibiotic s transition ed to oral ciprofloxa david. Completing the antibiotic s. Asymptomat ic today. [id number] MD Britney Giles and BERNARD roberts [address] [place] [address] 05/06/2023 13:21:55 05/06/2023 14:42:58 Screening for osteoporosis 720562871 Z13.820 Declines Dexa today Type 2 cassia betes mellitus without complication 551988773 E11.9 Patient has been counselled on routine diabetic management including dietary and lifestyle changes. We will check A1c atleast every 6 mos and Microalbum in yearly. Diabetic eye exam has been recommende d yearly as well. Routine foot care including routine self exams recommende d. Micro today Adult heal th examination 389623272 Z00.00 We have discussed routine anticipato ry guidance based on the patient's age. Routine screening exams have been discussed in ordered appropriat e to the patient's age. I have recommende d routine health measures including a regular exercise regimen, healthy balanced diet, and routine safety measures including but not limited to seat belt use and sunscreen use. Active immunization 3387 9002 Z23 Gastroesop hageal reflux disease 244843609 K21.9 Symptoms are stable and well controlled on the current GERD regimen. There are no signs or symptoms of warning/re d flag concerns. Pt denies: dysphagia, odynophagi a, or blood in stool. If sxs start to worsen or change the pt will RTC. A total of thirty minutes was spent in regard to this patient's visit reviewing labs and/or imaging, reviewing the patients records, conducting a physical examinatio n, preparing the treatment plan, and discussing the treatment plan with its risk and benefits with the patient today. All questions have been answered. Benign sonny plasm of meninges 133539322 D32.9 Last FU was 2022; FU with DR jeffrey now PRN only. Depressive disorder 4605 9007 F32.A Stable on current regimen today. Continue the current prescribed regimen with no changes today. Dysphagia as a late effect of cerebrovascular accident 551101872 I69.391 Stable on current regimen today. Continue the current prescribed regimen with no changes today. Essential hypertension 68042001 I10 Hypertensi on is well controlled currently; Pt is tolerating the current medical regimen without any difficulty . No changes needed today. I have asked the patient to keep regular office visits. If needed the patient can return for a nurse visits for follow up to have routine regular BP checks with our office. Also a home log is encouraged . Hyperlipidemia 22944235 E78.5 Pt is counselled on routine dietary and lifestyle changes including low fat and low carb diets. Routine lipid panels yearly. Cardiac risk discussed with patient as well today. No changes to lipid regimen today. Pt will work on lifestyle changes to modify risk factors and lipid levels Recurrent urinary tract infection 019760585 N39.0 FU with [facility] at [facility] [id number] MD Britney Giles and Ricki roberts [address] [place] [address] 06/14/2023 13:30:33 06/14/2023 14:46:59 Nausea 352938464 R11.0 Kidney stone 25111752 N2 0.0 N39.0 Patient with known recurrent UTIs and nephrolith iasis has now successful ly gone surgical excision of the kidney stone on the right side. Incision looks well. Only complaint today is some nausea which has persisted as well as some diarrhea with discontinu ation of the antibiotic recently. Patient is instructed to start a daily probiotic. We will send some medicines for nausea to use as needed. Keep her scheduled follow-up with the urologist on June 30. She can return to our clinic sooner if needed or if any new symptoms develop. A total of thirty minutes was spent in regard to this patient's visit reviewing labs and/or imaging, reviewing the patients records, conducting a physical examinatio n, preparing the treatment plan, and discussing the treatment plan with its risk and benefits with the patient today. All questions have been answered. Acute diarrhea 219720139 R19.7 Secondary to antibiotic use which has been discontinu ed now. Start daily probiotic. If antibiotic related diarrhea persist, she will contact the office with the next 5-7 days and we will order stool studies to rule out C difficile. [id number] MD Britney Giles and Ricki roberts [address] [place] [address] 09/16/2023 13:55:06 09/16/2023 15:54:02 Screening for osteoporosis 246952956 Z13.820 Declines Gastroesop hageal reflux disease 040858651 K21.9 Symptoms are stable and well controlled on the current GERD regimen. There are no signs or symptoms of warning/re d flag concerns. Pt denies: dysphagia, odynophagi a, or blood in stool. If sxs start to worsen or change the pt will RTC. A total of thirty minutes was spent in regard to this patient's visit reviewing labs and/or imaging, reviewing the patients records, conducting a physical examinatio n, preparing the treatment plan, and discussing the treatment plan with its risk and benefits with the patient today. All questions have been answered. Essential hypertension 86878758 I10 Hypertensi on is well controlled currently; Pt is tolerating the current medical regimen without any difficulty . No changes needed today. I have asked the patient to keep regular office visits. If needed the patient can return for a nurse visits for follow up to have routine regular BP checks with our office. Also a home log is encouraged . Hyperlipidemia 81121238 E78.5 Pt is counselled on routine dietary and lifestyle changes including low fat and low carb diets. Routine lipid panels yearly. Cardiac risk discussed with patient as well today. No changes to lipid regimen today. Pt will work on lifestyle changes to modify risk factors and lipid levels Diabetes mellitus 041929 09 E11.9 A1c good today. Patient has been counselled on routine diabetic management including dietary and lifestyle changes. We will check A1c atleast every 6 mos and Microalbum in yearly. Diabetic eye exam has been recommende d yearly as well. Routine foot care including routine self exams recommende d. Thoracic back pain 85232 8004 M54.6 Chronic, stable, no chagnes today; NSAIDs prn. Heat and rest Benign sonny plasm of meninges 553477147 D32.9 Last FU was 2022; FU with DR jeffrey now PRN only. Depressive disorder 4110 9007 F32.A Stable on current regimen today. Continue the current prescribed regimen with no changes today. [id number] MD Britney Giles and Ricki roberts [address] [place] [address] 12/28/2023 15:45:15 12/28/2023 17:21:16 Gastroesophageal reflux disease 998043302 K21.9 Symptoms are stable and well controlled on the current GERD regimen. There are no signs or symptoms of warning/re d flag concerns. Pt denies: dysphagia, odynophagi a, or blood in stool. If sxs start to worsen or change the pt will RTC. We did discuss the prolonged usage of PPI and reglan, however at age 83, and with her complicati ons and severe symptoms, and the fact that she has no side effects and tolerates well; I feel continuing both are in her best interest. A total of thirty minutes was spent in regard to this patient's visit reviewing labs and/or imaging, reviewing the patients records, conducting a physical examinatio n, preparing the treatment plan, and discussing the treatment plan with its risk and benefits with the patient today. All questions have been answered. Screening for osteoporosis 659848793 Z13.820 Declines Essential hypertension 63701043 I10 Hypertensi on is well controlled currently though elevated here today; but good on home checks. Pt is tolerating the current medical regimen without any difficulty . No changes needed today. I have asked the patient to keep regular office visits. If needed the patient can return for a nurse visits for follow up to have routine regular BP checks with our office. Also a home log is encouraged . Hyperlipidemia 35959278 E78.5 Pt is counselled on routine dietary and lifestyle changes including low fat and low carb diets. Routine lipid panels yearly. Cardiac risk discussed with patient as well today. No changes to lipid regimen today. Pt will work on lifestyle changes to modify risk factors and lipid levels Diabetes mellitus 029747 09 E11.9 A1c good today. Patient has been counselled on routine diabetic management including dietary and lifestyle changes. We will check A1c atleast every 6 mos and Microalbum in yearly. Diabetic eye exam has been recommende d yearly as well. Routine foot care including routine self exams recommende d. Thoracic back pain 55409 8004 M54.6 Chronic, stable, no chagnes today; NSAIDs prn. Heat and rest Benign sonny plasm of meninges 216828078 D32.9 Last FU was 2022; FU with DR jeffrey now PRN only. Depressive disorder 0308 9007 F32.A Stable on current regimen today. Continue the current prescribed regimen with no changes today. Fatigue 16074104 R53.83 [id number] [facility]berts [address] [place] [address] 02/23/2024 16:24:24 02/23/2024 17:28:56 Gastroesophageal reflux disease 520781715 K21.9 Symptoms are stable and well controlled on the current GERD regimen. There are no signs or symptoms of warning/re d flag concerns. Pt denies: dysphagia, odynophagi a, or blood in stool. If sxs start to worsen or change the pt will RTC. We did discuss the prolonged usage of PPI and reglan, however at age 83, and with her complicati ons and severe symptoms, and the fact that she has no side effects and tolerates well; I feel continuing both are in her best interest. A total of thirty minutes was spent in regard to this patient's visit reviewing labs and/or imaging, reviewing the patients records, conducting a physical examinatio n, preparing the treatment plan, and discussing the treatment plan with its risk and benefits with the patient today. All questions have been answered. Diabetes mellitus [id number] 09 E11.9 A1c good today. Patient has been counselled on routine diabetic management including dietary and lifestyle changes. We will check A1c atleast every 6 mos and Microalbum in yearly. Diabetic eye exam has been recommende d yearly as well. Routine foot care including routine self exams recommende d. Essential hypertension [id number] I10 Hypertensi on is well controlled currently though elevated here today; but good on home checks. Pt is tolerating the current medical regimen without any difficulty . No changes needed today. I have asked the patient to keep regular office visits. If needed the patient can return for a nurse visits for follow up to have routine regular BP checks with our office. Also a home log is encouraged .--Reassur ance given to the pt today that her BP log looks very normal and no concerns seen Dizziness [id number] R42 She will work to increase the fluid intake to help with dizziness and dehydratio n. [id number] MD [facility] [address], [place] [address] 05/17/2024 13:55:43 05/17/2024 15:15:58 Gastroesophageal reflux disease [id number] K21.9 Symptoms are stable and well controlled on the current GERD regimen. There are no signs or symptoms of warning/re d flag concerns. Pt denies: dysphagia, odynophagi a, or blood in stool. If sxs start to worsen or change the pt will RTC. We did discuss the prolonged usage of PPI and reglan, however at age 83, and with her complicati ons and severe symptoms, and the fact that she has no side effects and tolerates well; I feel continuing both are in her best interest. She did stop the reglan and is doing well off this medicine. A total of thirty minutes was spent in regard to this patient's visit reviewing labs and/or imaging, reviewing the patients records, conducting a physical examinatio n, preparing the treatment plan, and discussing the treatment plan with its risk and benefits with the patient today. All questions have been answered. Screening for osteoporosis [id number] Z13.820 Declines Essential hypertension [id number] I10 Hypertensi on is well controlled currently though elevated here today; but good on home checks. Pt is tolerating the current medical regimen without any difficulty . No changes needed today. I have asked the patient to keep regular office visits. If needed the patient can return for a nurse visits for follow up to have routine regular BP checks with our office. Also a home log is encouraged . Hyperlipidemia [id number] E78.5 Pt is counselled on routine dietary and lifestyle changes including low fat and low carb diets. Routine lipid panels yearly. Cardiac risk discussed with patient as well today. No changes to lipid regimen today. Pt will work on lifestyle changes to modify risk factors and lipid levels Diabetes mellitus [id number] 09 E11.9 A1c good today. Patient has been counselled on routine diabetic management including dietary and lifestyle changes. We will check A1c atleast every 6 mos and Microalbum in yearly. Diabetic eye exam has been recommende d yearly as well. Routine foot care including routine self exams recommende d. Thoracic back pain [id number] M54.6 Chronic, stable, no chagnes today; NSAIDs prn. Heat and rest Benign sonny plasm of meninges [id number] D32.9 Last FU was 2022; FU with DR jeffrey now PRN only. Depressive disorder [id number] F32.A Stable on current regimen today. Continue the current prescribed regimen with no changes today. Iron defic iency anemia [id number] D50.9 Cobalamin deficiency [id number] E53.8 Labs from December visit had low Vit B12 and low iron levels. It was recommende d to start oral Iron OTC treatment as well as monthly Vit B12 injections . She did neither and reports that she cannot come in monthly for the injections and request oral supplment as well as oral iron supp rx to be sent to the pharmacy Active immunization [id number] Z23 Health Concerns Section Related Observation LastModified by Organization Detai ls LastModified Time None Recorded Concern Status LastModified by Organization Details LastModified Time None Recorded Advance Directives Directive Y: Payers Encounter Date Sequence Insurance Name Policy Number Policy Terry Covered Member ID Terry Member ID Guarantor Name 06/14/2023 1 [employer] (MEDICARE REPLACEMENT/A DVANTAGE - PPO) Sia K Friedly [id number] Sia K Friedly 09/16/2023 1 [employer] (MEDICARE REPLACEMENT/A DVANTAGE - PPO) Sia K Friedly [id number] Sia K Friedly 12/28/2023 1 [employer] (MEDICARE REPLACEMENT/A DVANTAGE - PPO) Sia K Friedly [id number] Sia K Friedly 02/23/2024 1 [employer] (MEDICARE REPLACEMENT/A DVANTAGE - PPO) Sia K Friedly [id number] Sia K Friedly 05/17/2024 1 [employer] (MEDICARE REPLACEMENT/A DVANTAGE - PPO) Sia K Friedly [id number] Sia K Vannesa Notes Date Note Type Note Provider Name and Address Organization Details Recorded Time 06/14/2023 text/html Is an 82-year-ol d lady with a known history of diabetes, hypertension, prior meningioma in 2005 with left-sided hemiplegia after surgery, recurrent UTIs, and recent hospitalization. Was initially hospitalized in Mar for acute pyelonephritis with urolithiasis. Patient was admitted to the hospital on April 08 through April 11 at [facility]. She presented with right-sided flank pain, malaise, nausea, and vomiting. She became hypotensive and septic. She was transferred to the ICU at [facility]. Urine culture showed E coli treated with meropenem and vancomycin. Patient presented with acute kidney injury with a creatinine 2.3, which improved quickly with treatment. A CT scan on April 12 did show a 2 cm right UPJ stone with hydronephrosis and 4 cm gallbladder stone. Patient was ultimately transferred to [facility] for the care of a urologist as a urologist was not present at [place]. The patient had been under the care of Dr. Luke in [place] initially, and then most recently at [facility] urology.At [facility], the patient was found to have an obstructive uropathy and kidney stone. This was complicated by UTI and pyelonephritis. Patient underwent cystoscopy with stent placement. She medically improved. She was transitioned from IV antibiotics to oral ciprofloxacin. She has routine follow-up scheduled with Dr. Brumfield with [facility]. Pt had FU with urology, Dr. Mike Brumfield MD -->04/26/2023; Discussion with Dr. Brumfield with [facility]. of surgery vs lithotrispy. Decided with surgical extraction of the stone mid may. Patient underwent placement of a right nephroureteral catheter by Interventional Radiology followed by right percutaneous nephrolithotomy on June 06. She would no immediate postoperative complications. She was stable for an overnight observation. She was discharged home the following day. Since discharge home, she is had some mild nausea and vomiting which has waxed and waned. Initially thought this may be related to the anesthesia and antibiotics, but this has persisted even with discontinuation of the antibiotic. She does note some diarrhea that started in the last 48 hours. No fevers or chills. She has follow-up planned with Urology at this time. Feels no urinary symptoms. Incision seems to be healing well. Dakotah Leiva MD [address] [facility], [place], [address], [place] - [facility] - [place] & [place] 06/15/2023 11:23:14 09/16/2023 text/html 1.) Is an 82-yea r-old lady with a known history of diabetes, hypertension, prior meningioma in 2006 with left-sided hemiplegia after surgery, recurrent UTIs, and recent hospitalization. Was initially hospitalized in Mar for acute pyelonephritis with urolithiasis. Patient was admitted to the hospital on April 08 through April 11 at [facility]. She presented with right-sided flank pain, malaise, nausea, and vomiting. She became hypotensive and septic. She was transferred to the ICU at [facility]. Urine culture showed E coli treated with meropenem and vancomycin. Patient presented with acute kidney injury with a creatinine 2.3, which improved quickly with treatment. A CT scan on April 12 did show a 2 cm right UPJ stone with hydronephrosis and 4 cm gallbladder stone. Patient was ultimately transferred to [facility] for the care of a urologist as a urologist was not present at [place]. The patient had been under the care of Dr. Luke in [place] initially, and then most recently at [facility] urology.At [facility], the patient was found to have an obstructive uropathy and kidney stone. This was complicated by UTI and pyelonephritis. Patient underwent cystoscopy with stent placement. She medically improved. She was transitioned from IV antibiotics to oral ciprofloxacin. She has routine follow-up scheduled with Dr. Brumfield with [facility]. Pt had FU with urology, Dr. Mike Brumfield MD -->04/26/2023; Discussion with Dr. Brumfield with [facility]. of surgery vs lithotrispy. Decided with surgical extraction of the stone mid may. Patient underwent placement of a right nephroureteral catheter by Interventional Radiology followed by right percutaneous nephrolithotomy on June 06. She would no immediate postoperative complications. She was stable for an overnight observation. She was discharged home the following day.Done well Has now been released from Urology; Doing well. 2.) Dysphagia: chronic s/p brain surgery which left her with residual swallowing difficulties. Has trouble with liquids more than solids. No new concerns. Has now been to [facility] for swallowing therapy; Last year; Sx have improved. Continues to do exercises too. She does to continue to report some choking episodes. These occur with certain foods. But time she just awakened during her sleep choking. These choking spells at night are associated with acid reflux.No recent episode of this occurring. 3.) HTN: BP well controlled today, on lisinopril, HCTZ, & atenolol. She has no known cardiac issues. She denies CP, SOA, MARTINEZ. Does not need refills today.--BP readings reviewed and looked good. 4.) DM: Remains only on oral meds. Last A1C in November 8.4-->7.4-->6.9--6.5- ->8.4--8.8.--8.0-->6. 9-->6.4-->6.2-->6.3-- >7.3-->7.2-->7.1 03/2023 Takes metformin and good compliance. Eye exam compliant. Work to improve diet. Eating very little carbs. Hasn't been really checking sugars recently. Feels over all well and that things should be stable. Needs a1c. Microalbumen done: 04/2020.--no known lows.--Dr. Kay--December 2021 and December 2022 5.) GERD: Sxs not as well controlled; occur alot at night, make her gag and choke more frequently. Taking omeprazole and reglan.--Still gets occasional severe episodes, that awaken her from sleep, this occurred this morning. Now very tired. 6.) Brain Tumor: She has a known history of a meningioma that was treated with surgery and then gamma knife therapyx 2-3 times and had subsequent residual right-sided facial weakness (2005). Continues with cerebellopontine angle tumor. She continues to follow with Dr. nicole dior on a regular basis. This is stable without any changes. Went back 02/2020 and MRI was all normal...now goes back in 3 years.--Did have a lesion near her orbid identifed on scan during hosp stay--She was unaware of this--Recommend FU with oncology locally, she did this; nothing needed; rec FU with [place].--FU with NS in February 2023.--3 year followup , MRI stable--No FU needed; only as needed7.)HMS: Mammogram last at 04/2018; now age 78, doesn't wish to continue; no family hx of breast cancer nor any prior abn mammogram--not needed any longer; Colonoscopy: done 2018--not needed any longer 8.) DERM: Had some pre-cancerous spots removed form scalp with DR. Morales since our last.--3.2022 FU apt.--Had Bx on back of thigh, but negative--FU now scheduled 03/2023 9.) Sensironeural hearing loss: Has seen ENT and audiology; Recommended hearing aides. She is very reluctant to get these at this time; very costly.--Is going to check with [employer]-->Still hasn't done this--FU with ENT in December 01.) Vertigo: Has episodes; has had severe episodes recently. Some better now; still with some hints of these episodes, but overall better. 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 Having some continued pain and numbness; declines referral for NCS today. 12.) Back Pain: left side, at lower shoulder blade and up to neck; has been there her whole life. Ibuprofen helps. Not getting worse or more frquent, but inttermittent. 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 Was initially hospitalized in [place] for acute pyelonephritis with urolithiasis. Patient was admitted to the hospital on April 08 through April 11 at [facility]. She presented with right-sided flank pain, malaise, nausea, and vomiting. She became hypotensive and septic. She was transferred to the ICU at [facility]. Urine culture showed E coli treated with meropenem and vancomycin. Patient presented with acute kidney injury with a creatinine 2.3, which improved quickly with treatment. A CT scan on April 12 did show a 2 cm right UPJ stone with hydronephrosis and 4 cm gallbladder stone. Patient was ultimately transferred to [facility] for the care of a urologist as a urologist was not present at [place]. The patient had been under the care of Dr. Luke in [place] initially, and then most recently at [facility] urology.At [facility], the patient was found to have an obstructive uropathy and kidney stone. This was complicated by UTI and pyelonephritis. Patient underwent cystoscopy with stent placement. She medically improved. She was transitioned from IV antibiotics to oral ciprofloxacin. She has routine follow-up scheduled with Dr. Brumfield with [facility]. Pt had FU with urology, Dr. Mike Brumfield MD -->04/26/2023; Discussion with Dr. Brumfield with [facility]. of surgery vs lithotrispy. Decided with surgical extraction of the stone mid may. Patient underwent placement of a right nephroureteral catheter by Interventional Radiology followed by right percutaneous nephrolithotomy on June 06. She would no immediate postoperative complications. She was stable for an overnight observation. She was discharged home the following day.Done well Has now been released from Urology; Doing well. No recent recurrent symptoms or UTI since. 2.) Dysphagia: chronic s/p brain surgery which left her with residual swallowing difficulties. Has trouble with liquids more than solids. No new concerns. Has now been to [facility] for swallowing therapy; Last year; Sx have improved. Continues to do exercises too. She does to continue to report some choking episodes. These occur with certain foods. But time she just awakened during her sleep choking. These choking spells at night are associated with acid reflux.-- No recent episode of this occurring.--Questions prolonged use of PPI and side effects--Questions prolonged use of reglan and its potential side effects. 3.) HTN: BP well controlled typically up some today, on lisinopril, HCTZ, & atenolol. She has no known cardiac issues. She denies CP, SOA, MARTINEZ. Does not need refills today.--BP readings reviewed and looked good on home checks-->reviewed 20+ days of BP and all <130/90--UP some here in the office. 4.) DM: Remains only on oral meds. Last A1C in November 8.4-->7.4-->6.9--6.5- ->8.4--8.8.--8.0-->6. 9-->6.4-->6.2-->6.3-- >7.3-->7.2-->7.1-->7. 1--7>5, due today. Takes metformin and good compliance. Eye exam compliant. Work to improve diet. Eating very little carbs. Hasn't been really checking sugars recently. Feels over all well and that things should be stable. Needs a1c. microalbumin done: 04/2020.--no known lows.--Dr. Kay--December 2021 and December 2022 5.) GERD: Sxs not as well controlled; occur alot at night, make her gag and choke more frequently. Taking omeprazole and reglan.--Still gets occasional severe episodes, that awaken her from sleep.--REmain on current meds without side effects. 6.) Brain Tumor: She has a known history of a meningioma that was treated with surgery and then gamma knife therapyx 2-3 times and had subsequent residual right-sided facial weakness (2005). Continues with cerebellopontine angle tumor. She continues to follow with Dr. nicole dior on a regular basis. This is stable without any changes. Went back 02/2020 and MRI was all normal...now goes back in 3 years.--Did have a lesion near her orbid identifed on scan during hosp stay--She was unaware of this--Recommend FU with oncology locally, she did this; nothing needed; rec FU with [facility].--FU with NS in February 2023.--3 year followup , MRI stable--No FU needed; only as needed7.)HMS: Mammogram last at 04/2018; now age 78, doesn't wish to continue; no family hx of breast cancer nor any prior abn mammogram--not needed any longer; Colonoscopy: done 2018--not needed any longer 8.) DERM: Had some pre-cancerous spots removed form scalp with DR. Morales since our last.-- FU apt.--Had Bx on back of thigh, but negative--FU last 03/2023 9.) Sensironeural hearing loss: Has seen ENT and audiology; Recommended hearing aides. She is very reluctant to get these at this time; very costly.--Is going to check with [employer]-->Still hasn't done this--FU with ENT routinely 10.) Vertigo: Has episodes; has had severe episodes recently. Some better now; still with some hints of these episodes, but overall better. 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 Having some continued pain and numbness; declines referral for NCS today. 12.) Back Pain: left side, at lower shoulder blade and up to neck; has been there her whole life. Ibuprofen helps. Not getting worse or more frequent, but intermittent. Dakotah Leiva MD [address] [facility], [place], [address], [facility] - [place] - [place] 12/31/2023 11:03:31 02/23/2024 text/html HTN: BP well controlled typically up some today, on lisinopril, HCTZ, & atenolol. She has no known cardiac issues. She denies CP, SOA, MARTINEZ. Does not need refills today.--BP readings reviewed and looked good on home checks-->reviewed 30+ days of BP and numerous readings per day. Overall BP trend is <130/90--BP is a concern of the pt, she feels it is too high--She is taking all BP meds as ordered--She is very worried about her BP readings. DM: Remains only on oral meds. Last A1C in November 8.4-->7.4-->6.9--6.5- ->8.4--8.8.--8.0-->6. 9-->6.4-->6.2-->6.3-- >7.3-->7.2-->7.1-->7. 1--7>5, due today. Takes metformin and good compliance. Eye exam compliant. Work to improve diet. Eating very little carbs. Hasn't been really checking sugars recently. Feels over all well and that things should be stable. Needs a1c. microalbumin done: 04/2020.--no known lows.--Dr. Kay--December 2021 and December 2022 Vertigo/Dizziness: Pt does report that she was dizzy today and fell at home. Fel like she may pass out. Fell onto the floor in the BR. Was able to get up. Did have a small laceration on the right restoration. She did not check her FSBS nor her BP at that time. She denies CP. She does report that she doesn't drink adequately. She often feels dizzy when standing. She drinks little fluid throughout the day bc of her difficulty swallowing. 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 Was initially hospitalized in [place] for acute pyelonephritis with urolithiasis. Patient was admitted to the hospital on April 08 through April 11 at [facility]. She presented with right-sided flank pain, malaise, nausea, and vomiting. She became hypotensive and septic. She was transferred to the ICU at [facility]. Urine culture showed E coli treated with meropenem and vancomycin. Patient presented with acute kidney injury with a creatinine 2.3, which improved quickly with treatment. A CT scan on April 12 did show a 2 cm right UPJ stone with hydronephrosis and 4 cm gallbladder stone. Patient was ultimately transferred to [facility] for the care of a urologist as a urologist was not present at [place]. The patient had been under the care of Dr. Luke in [place] initially, and then most recently at [facility] urology.At [facility], the patient was found to have an obstructive uropathy and kidney stone. This was complicated by UTI and pyelonephritis. Patient underwent cystoscopy with stent placement. She medically improved. She was transitioned from IV antibiotics to oral ciprofloxacin. She has routine follow-up scheduled with Dr. Brumfield with [facility]. Pt had FU with urology, Dr. Mike Brumfield MD -->04/26/2023; Discussion with Dr. Brumfield with [facility]. of surgery vs lithotrispy. Decided with surgical extraction of the stone mid may. Patient underwent placement of a right nephroureteral catheter by Interventional Radiology followed by right percutaneous nephrolithotomy on June 06. She would no immediate postoperative complications. She was stable for an overnight observation. She was discharged home the following day.Done well Has now been released from Urology; Doing well. No recent recurrent symptoms or UTI since. 2.) Dysphagia: chronic s/p brain surgery which left her with residual swallowing difficulties. Has trouble with liquids more than solids. No new concerns. Has now been to [facility] for swallowing therapy; Last year; Sx have improved. Continues to do exercises too. She does to continue to report some choking episodes. These occur with certain foods. But time she just awakened during her sleep choking. These choking spells at night are associated with acid reflux.-- No recent episode of this occurring.--Remains on PPI and reglan 3.) HTN: BP well controlled typically; on lisinopril, HCTZ, & atenolol. She has no known cardiac issues. She denies CP, SOA, MARTINEZ. Does not need refills today.--BP readings reviewed and looked good on home checks-->reviewed 20+ days of BP and all <130/90--UP some here in the office. Has actually had some syncopal like episode (See last visit). Also has had some follow episodes where she feels like it may happen, but doesn't pass out. Has tried to drink better, but not doing as we 4.) DM: Remains only on oral meds. Last A1C in November 8.4-->7.4-->6.9--6.5- ->8.4--8.8.--8.0-->6. 9-->6.4-->6.2-->6.3-- >7.3-->7.2-->7.1-->7. 1--7.5-->7.3 due today. Takes metformin and good compliance. Eye exam compliant. Work to improve diet. Eating very little carbs. Hasn't been really checking sugars recently. Feels over all well and that things should be stable. Needs a1c. microalbumin done: 04/2020.--no known lows.--Dr. Kay--December 2021 and December 2022 5.) GERD: Sxs not as well controlled; occur alot at night, make her gag and choke more frequently. Taking omeprazole and stopped the reglan.--She was worried about the buttermaker continuous churn use of reglan so she stopped this and has done well.--Still gets occasional severe episodes, that awaken her from sleep--no worse off the reglan.--Remain on current meds without side effects. 6.) Brain Tumor: She has a known history of a meningioma that was treated with surgery and then gamma knife therapyx 2-3 times and had subsequent residual right-sided facial weakness (2005). Continues with cerebellopontine angle tumor. She continues to follow with Dr. nicole dior on a regular basis. This is stable without any changes. Went back 02/2020 and MRI was all normal...now goes back in 3 years.--Did have a lesion near her orbid identifed on scan during hosp stay--She was unaware of this--Recommend FU with oncology locally, she did this; nothing needed; rec FU with Jeffrey.--FU with NS in February 2023.--3 year followup , MRI stable--No FU needed; only as needed7.)HMS: Mammogram last at 04/2018; now age 78, doesn't wish to continue; no family hx of breast cancer nor any prior abn mammogram--not needed any longer; Colonoscopy: done 2018--not needed any longer 8.) DERM: Had some pre-cancerous spots removed form scalp with DR. Morales since our last.-- FU apt.--Had Bx on back of thigh, but negative--FU last 03/2023 9.) Sensironeural hearing loss: Has seen ENT and audiology; Recommended hearing aides. She is very reluctant to get these at this time; very costly.--Is going to check with [facility]-->Still hasn't done this--FU with ENT routinely 10.) Vertigo: Has episodes; has had severe episodes recently. Some better now; still with some hints of these episodes, but overall better. 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 Having some continued pain and numbness; declines referral for NCS today. 12.) Back Pain: left side, at lower shoulder blade and up to neck; has been there her whole life. Ibuprofen helps. Not getting worse or more frequent, but intermittent. 13.) Syncope: Has had some recent syncope, which we feel is related to poor fluid intake. She has tried to increase fluid intake. Of note, the sxs are worse in the morning and she takes per BP meds at bedtime. During the feeling she has checked her FSBS and it is normal, but hasn't checked her BP. Dakotah Leiva MD [id number] [facility], [place], [address], [facility] - [place] - [place] & [place] 05/17/2024 18:32:48 OBGyn Episode No OBEpisode recorded.
--- NOTE | 2024-11-23 18:24 | CT_ITS ---
PROCEDURE INFORMATION: Exam: CTA Chest With Contrast Exam date and time: 11/23/2024 7:13 PM Age: 84 years old Clinical indication: Dyspnea; Additional info: Dyspnea, recent aspiration event TECHNIQUE: Imaging protocol: Computed tomographic angiography of the chest with contrast. Exam focused on the arteries. 3D rendering (Not supervised by radiologist): MIP and/or 3D reconstructed images were created by the technologist. Radiation optimization: All CT scans at this facility use at least one of these dose optimization techniques: automated exposure control; mA and/or kV adjustment per patient size (includes targeted exams where dose is matched to clinical indication); or iterative reconstruction. Contrast material: ISOUVE 370; Contrast volume: 80 ml; Contrast route: INTRAVENOUS (IV); COMPARISON: CR XR CHEST PORTABLE 08/08/2024 10:45 FINDINGS: Pulmonary arteries: No pulmonary emboli. Aorta: The aorta demonstrates mild to moderate atherosclerotic disease. Celiac trunk and mesenteric arteries: Moderate proximal SMA stenosis. 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 Thyroid: Calcified nodule in the right thyroid. No follow-up imaging is warranted. Lungs: Mild scarring and atelectasis in the lower lungs. There is a 7 mm left lower lobe pulmonary nodule image 43 series 3. There is a 5 mm ground-glass nodule in right lower lobe image 34 series 3. This is nonspecific. Pleural spaces: Unremarkable. No pneumothorax. No pleural effusion. Heart: Cardiomegaly. Mitral and aortic valve calcifications. Coronary arteries: Coronary artery calcifications. Lymph nodes: Unremarkable. No enlarged lymph nodes. Gallbladder and biliary ducts: Cholelithiasis. Intestine: Colonic diverticula. Bones/joints: Unremarkable. No acute fracture. Soft tissues: Unremarkable. Other findings: Stigmata of old granulomatous disease. IMPRESSION: 1. No pulmonary emboli. 2. Cholelithiasis. 3. There is a 7 mm left lower lobe pulmonary nodule image 43 series 3. For patients at low risk (minimal or absent history of smoking and of other known risk factors), recommend CT Chest at 6-12 months, then consider CT Chest at 18-24 months. For patients at high risk (history of smoking or of other known risk factors), recommend CT Chest at 6-12 months, then CT Chest at 18-24 months. (Reference: Lisa) COMMENTS: Consistent with the [employer]'s Incidental Findings Committee white paper (J Am Tahir Radiol 2015): In patients aged 35 years and older with an incidental thyroid nodule equal to or greater than 1.[address], MRI or extrathyroidal US, further evaluation with dedicated thyroid US is recommended for patients with normal life expectancy and without comorbidities. For smaller nodules without suspicious features, no further evaluation or follow up is recommended. REFERENCES: Lisa Siddiqui, et al. Guidelines for Management of Incidental Pulmonary Nodules Detected on CT Images: From the Fleischner Society 2017. Radiology. 2017;284(1):228-243.
[2024-11-23 18:36] LABS: Basophils # 0.1 K/mm3 (0-0.2); Basophils % 0.8 % (0.1-2.0); Eosinophils # 0.3 Kmm3 (0.0-0.4); Eosinophils % 3.8 % (0.1-12.0); Hematocrit 38.7 % (37.0-47.0); Hemoglobin 12.8 g/dL (12.2-16.2); Lymphocytes # 2.8 K/mm3 (0.7-4.5); Lymphocytes % 36.5 % (10-50); Mean Corpuscular HGB Conc 33.1 g/dL (31.8-35.4); Mean Corpuscular Hemoglobin 30.9 pg (27.0-31.2); Mean Corpuscular Volume 93.5 fl (81-99); Mean Platelet Volume 9.8 fl (7.4-10.4); Monocytes # 0.5 K/mm3 (0.1-1.0); Monocytes % 6.5 % (1.7-9.3); Neutrophils % 52.1 % (37.0-80.0); Nucleated Red Blood Cells # 0 10^3/uL; Nucleated Red Blood Cells % 0 %; Platelet Count 261 K/mm3 (142-424); Red Blood Count 4.14 M/mm3 (4.20-5.40); Red Cell Distribution Width 13.2 % (11.5-17.5); Red Cell Distribution Width-SD 45.1 fL; White Blood Count 7.6 K/mm3 (4.8-10.8)
--- NOTE | 2024-11-23 18:48 | ECG_ITS ---
APPROVED REPORT Exam: Resting ECG HR:78 bpm ECG Measurements Heart Rate 78 AXES VT 196 P 33 QRSd 149 QRS -27 QT 374 T -16 QTc 407 Conclusion SINUS RHYTHM RIGHT BUNDLE BRANCH BLOCK [120+ ms QRS DURATION, UPRIGHT V1, 40+ ms S IN I/aVL/V4/V5/V6] MINIMAL VOLTAGE CRITERIA FOR LVH, CONSIDER NORMAL VARIANT [MEETS CRITERIA IN ONE OF: R(aVL), S(V1), R(V5), R(V5/V6)+S(V1)] POSSIBLE SEPTAL MYOCARDIAL INFARCTION , OF INDETERMINATE AGE [30 ms Q WAVE IN V1/V2] ABNORMAL ECG UNCONFIRMED REPORT Electronically signed by : Jarrell Womack, 11/23/2024 22:58:43
[2024-11-23 18:53] LABS: Chloride 105 mmol/L (98-107); Sodium 139 mmol/L (136-145)
[2024-11-23 18:54] LABS: Potassium 4.7 mmoL/L (3.5-5.1)
[2024-11-23 18:56] LABS: Alanine Aminotransferase 20 U/L (12-78); Alkaline Phosphatase 142 U/L (38-126); Anion Gap 12.7 mEq/L (5-15); Aspartate Amino Transferase 25 U/L (14-36); Bilirubin,Total 0.4 mg/dl (0.2-1.3); Blood Urea Nitrogen 20 mg/dl (7-17); Carbon Dioxide 26 mmol/L (22.0-30.0); Creatinine Clearance Estimated 46 mL/min (50-200); Estimated Glomerular Filt Rate 95 ml/min (>60); GFR (African American) 116 ML/MIN (>60)
[2024-11-23 18:57] LABS: Calcium 9.9 mg/dl (8.4-10.2); Glucose 107 mg/dl (74-100); Total Protein,Serum 6.7 g/dl (6.3-8.2)
[2024-11-23 19:06] LABS: NT Pro Brain Natriuretic Pep. 77.4 pg/mL (0-450)
--- NOTE | 2024-11-23 19:11 | HMH.EDGENADL ---
Discharge Plan Disposition Patient Disposition: Home, Self-Care Chief Complaint: Skin/Abscess/Foreign Body Prescriptions Prescriptions: No Action atorvastatin 40 mg tablet 40 mg PO HS cyanocobalamin (vitamin B-12) 1,000 mcg tablet 1,000 mcg PO DAILY Patient Comments: TAKE ONE TABLET BY MOUTH EVERY DAY ferrous sulfate [FeroSul] 325 mg (65 mg iron) tablet 325 mg PO DAILY Patient Comments: TAKE ONE TABLET BY MOUTH EVERY DAY acetaminophen 325 mg Tablet 650 mg PO Q6HP PRN (Reason: Fever Or Mild Pain (1-3)) 30 Days Qty: 90 0RF lisinopril 10 mg Tablet 10 mg PO DAILY 30 Days Qty: 30 0RF ibuprofen 400 mg Tablet 400 mg PO Q6HP PRN (Reason: Headache) 30 Days Qty: 90 0RF metformin 850 mg tablet 850 mg PO BIDWMEAL 30 Days Qty: 60 0RF omeprazole 40 mg capsule,delayed release(DR/EC) 40 mg PO DAILY 30 Days Qty: 30 0RF atenolol 50 mg tablet 50 mg PO DAILY 30 Days Qty: 30 0RF Senna Plus 8.6-50 mg capsule 1 tab-cap PO HS Qty: 30 0RF levofloxacin 750 mg tablet 750 mg PO DAILY 8 Days Qty: 8 0RF magnesium oxide 400 mg magnesium capsule 400 mg PO HS Qty: 30 0RF Referrals Follow up/Referrals: Dakotah Leiva [Primary Care Provider] - See instructions Activity Restrictions/Add. Instructions Additional Instructions/Restrictions: No acute cardiopulmonary emergency was identified today in the emergency department specifically no evidence of any aspiration pneumonia or large aspirated particulate matter in the airways. There was an incidental 7 mm pulmonary nodule that radiology recommended a repeat CT scan in 6 to 12 months please follow with your primary care doctor regarding this but this was not emergent and an incidental finding. Clinical Impressions Clinical Impression: Acute dyspnea, Vocal cord dysfunction, Incidental pulmonary nodule Instructions Patient Instructions: DI for Skin Abscess Print Language Print Language: Arabic Discharge ED Provider: Ermelinda Womack General Adult HPI General Chief complaint: Skin/Abscess/Foreign Body Stated complaint: ? aspiration Time Seen by Provider: 11/23/24 18:08 Mode of Arrival: Ambulatory Source of Information: Patient Description of Symptoms (Recalled from ER Triage Doc. by RN): pt presents to ED for possible aspiration. pt and daughter state that pt does have history of choking episodes. [facility] pt had a chocking episoide last night and was coughing up alot of pleghm. pt thinks she may have aspirated. History of Present Illness HPI narrative: Patient is an 84-year-old female presenting today with concerns for aspiration. 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 Most recently she had several events in the last several weeks and was noted to be short of breath earlier today and sent to the emergency department both by her family and halfway staff. Patient denies any fevers but does state that she has increased hoarse voice and respiratory distress. Related Data Home Medications ?Medication ?Instructions ?Recorded ?Confirmed atorvastatin 40 mg tablet 40 mg PO HS 07/28/24 11/23/24 cyanocobalamin (vitamin B-12) 1,000 mcg PO DAILY 07/28/24 11/23/24 1,000 mcg tablet ferrous sulfate 325 mg (65 mg 325 mg PO DAILY 07/28/24 11/23/24 iron) tablet (FeroSul) Previous Rx's ?Medication ?Instructions ?Recorded acetaminophen 325 mg tablet 650 mg (2 x 325 mg) PO Q6HP PRN 07/31/24 Fever Or Mild Pain (1-3) 30 days #90 tabs atenolol 50 mg tablet 50 mg PO DAILY 30 days #30 tabs 07/31/24 ibuprofen 400 mg tablet 400 mg PO Q6HP PRN Headache 30 07/31/24 days #90 tabs lisinopril 10 mg tablet 10 mg PO DAILY 30 days #30 tabs 07/31/24 metformin 850 mg tablet 850 mg PO BIDWMEAL 30 days #60 tabs 07/31/24 omeprazole 40 mg capsule,delayed 40 mg PO DAILY 30 days #30 caps 07/31/24 release sennosides 8.6 mg-docusate sodium 1 tab-cap PO HS #30 caps 07/31/24 50 mg capsule (Senna Plus) levofloxacin 750 mg tablet 750 mg PO DAILY 8 days #8 tabs 08/08/24 magnesium oxide 400 mg PO HS #30 caps 08/08/24 Allergies Allergy/AdvReac Type Severity Reaction Status Date / Time Sulfa (Sulfonamide Allergy Intermediate Anaphylaxis Verified 07/28/24 21:35 Antibiotics) clindamycin Allergy Other Verified 07/29/24 00:32 nitrofurantoin (From Allergy Other Verified 07/29/24 00:32 Macrodantin) Penicillins Allergy Hives Verified 07/29/24 00:32 PFSH [facility] Disclaimer: The information contained in this section may have been updated after the patient was seen, as this information can be updated by other users. Medical History (Updated 11/23/24 @ 20:53 by Ermelinda Womack MD) Diabetes mellitus Hypertension Hyperlipidemia H/O meningioma of the brain Nephrolithiasis Cataract Surgical History (Updated 07/29/24 @ 02:52 by Orly Sargent RN) History of tubal ligation History of appendectomy History of hysterectomy Social History (Updated 07/29/24 @ 00:27 by Oryl Sargent RN) Smoking Status: Never smoker alcohol intake: never current occupational status: retired Travel in the last 8 weeks?: None Have you lived/traveled outside US in past 30 days?: No Contact w/someone who lives/traveled outside US past 30 days?: No Exposure to someone with infectious disease in past 14 days?: No Do you have a fever (greater than 100.4 F or 38 C)?: No Have you tested positive for COVID-19?: No Exposed to someone with COVID-19 in past 14 days?: No Do you have a sore throat?: No Do you have a cough?: No Do you have any weakness?: No Do you have any diarrhea?: No Are you experiencing any unusual bleeding?: No Do you have any muscle aches/pain?: No Do you have any abdominal pain?: No Are you experiencing loss of taste or smell?: No Other Medical History Have you received the Flu Vaccine for this season: No Have you received the Pneumonia Vaccine: No ROS Obtained: Yes All systems reviewed & no additional complaints except as documented Physical Exam General General appearance: alert and in no apparent distress Respiratory Respiratory exam: Present normal lung sounds bilaterally; Absent respiratory distress Cardiovascular Cardiovascular exam: Present regular rate and normal rhythm Neurological Exam Neurological exam: Present alert and oriented X3 Medical Decision Making Medical Records Screening: Per USPSTF and CDC recommendations, given the prevalence of disease in our region, it is our hospital?s policy to screen for HIV and viral Hepatitis for all patients aged 18 and over and those with ongoing risk factors. Yefri Inquiry Pt receiving controlled substance: No Vital Signs: 11/23/24 17:50 11/23/24 17:53 11/23/24 18:01 Temperature 98.7 F Temperature Source Oral Pulse Rate 84 78 Pulse Rate [Left Radial] 82 Respiratory Rate 19 Blood Pressure 122/99 H 183/85 H Blood Pressure [Right Arm] 122/99 H Blood Pressure Mean Blood Pressure Mean [Right Arm] 106 02 Sat by Pulse Oximetry 98 98 96 11/23/24 18:29 11/23/24 20:00 11/23/24 20:30 Temperature Temperature Source Pulse Rate 73 82 78 Pulse Rate [Left Radial] Respiratory Rate 16 Blood Pressure 183/89 H 151/82 H 143/77 H Blood Pressure [Right Arm] Blood Pressure Mean 122 121 Blood Pressure Mean [Right Arm] 02 Sat by Pulse Oximetry 97 94 L 96 Lab Data Lab results reviewed: Yes I reviewed the patient's lab results. Lab Results 11/23/24 18:26: WBC 7.6, RBC 4.14 L, Hgb 12.8, Hct 38.7, MCV 93.5, MCH 30.9, MCHC 33.1, RDW 13.2, Plt Count 261, MPV 9.8, Neut % (Auto) 52.1, Lymph % (Auto) 36.5, [place] % (Auto) 6.5, Eos % (Auto) 3.8, Baso % (Auto) 0.8, Neut # (Auto) 4.0, Lymph # (Auto) 2.8, [place] # (Auto) 0.5, Eos # (Auto) 0.3, Baso # (Auto) 0.1, Sodium 139, Potassium 4.7, Chloride 105, Carbon Dioxide 26, Anion Gap 12.7, BUN 20 H, Creatinine 0.60, Estimated Creat Clear 46, Estimated GFR 95, Est GFR ( Amer) 116, Glucose 107 H, Calcium 9.9, Total Bilirubin 0.4, AST 25, ALT 20, Alkaline Phosphatase 142 H, Troponin I < 0.01, NT-Pro-B Natriuret Pep 77.4, Total Protein 6.7, Albumin 4.3, Globulin 2.4, Albumin/Globulin Ratio 1.8 11/23/24 18:26 11/23/24 18:26 Orders (Tests/Meds): ED MEDICATIONS Generic Name Dose Route Start Last Admin Trade Name Freelliott PRN Reason Stop Dose Admin Sodium Chloride 10 ml 11/23/24 19:26 11/23/24 19:28 Sodium Chloride 0.9% 10ml Syr (Rad Only) IV 12/23/24 19:25 10 ml NEEDED PRN Administration Maintain IV Site Discontinued Medications Generic Name Dose Route Start Last Admin Trade Name Freq PRN Reason Stop Dose Admin Iopamidol 90 ml 11/23/24 19:26 11/23/24 19:27 Iopamidol-370 (76%);100ml Bottle IV 11/23/24 19:27 90 ml ONCE ONE Administration Sodium Chloride 40 ml 11/23/24 19:26 11/23/24 19:27 0.9 % Sodium Chloride 50 Ml Vial IV 11/23/24 19:27 40 ml ONCE ONE Administration ORDERS Category Date Time Status CT angio chest PE protocol Stat Cat Scan 11/23/24 18:24 Completed BNP [NT Pro Brain Natriuretic Pep.] Stat Lab 11/23/24 18:26 Completed CBC w/Auto Diff [Complete Blood Count Auto Diff] Stat Lab 11/23/24 18:26 Completed CMP [Comprehensive Metabolic Panel] Stat Lab 11/23/24 18:26 Completed Trop I [Troponin I] Stat Lab 11/23/24 18:26 Completed Troponin I Q3H Lab 11/23/24 21:30 Ordered Troponin I Q3H Lab 11/24/24 00:30 Ordered Medical Decision Narrative: Well-appearing 84-year-old female in no respiratory distress with normal oxygen saturations normal effort normal lung auscultation exam presents today with concern for increased shortness of breath and possible aspiration event. She has been very cognizant about what she has been eating has not been eating large particulate matter such as with meat and is unlikely that she has aspirating large food particles most likely is having some vocal cord dysfunction and bronchospasms associated with local irritation. I will obtain a CT angio of the chest to rule out any alternative causes of dyspnea such as pulmonary embolism in addition to be able to see that he airways to rule out any large aspirated abnormality in addition to lung parenchymal abnormality such as pneumonia or pneumonitis. Reassessment 8:[address] scan was performed which I personally interpreted which shows no evidence of an acute pulmonary embolism no focal consolidation etc. Radiology read no acute abnormalities there is a incidental 7 mm pulmonary nodule that will require outpatient follow-up. Patient was reassured that no acute abnormality was ongoing. She was very stable on my reassessment respiratory exam is normal. Patient was discharged in stable condition. Critical Care Critical Care Time Critical Care Time: No
[2024-11-23 19:17] LABS: Troponin I < 0.01 ng/ml (0.00-0.034)
[2024-11-23] MEDS: IOPAMIDOL-370 (76%);100ML BOTTLE 90 ML IV (19:27)
[2024-11-23] MEDS: 0.9 % SODIUM CHLORIDE 50 ML VIAL 40 ML IV (19:27)
[2024-11-23] MEDS: SODIUM CHLORIDE 0.9% 10ML SYR (RAD ONLY) 10 ML IV (19:28)
[2024-11-23 20:29] LABS: Albumin Level 4.3 g/dl (3.5-5.0); Albumin/Globulin Ratio 1.8 (1.1-1.8); Globulin 2.4 g/dL (1.3-3.2)
== END 2024-11-23 21:07 | disposition home or self-care (01) ==
PROVIDERS: Emergency Provider Student in an Organized Health Care Education/Training Program; PCP Pediatrics
DX: R06.02 Shortness of breath (principal); J38.3 Other diseases of vocal cords; R91.1 Solitary pulmonary nodule
CPT/HCPCS: 71275; 80053; 83880; 84484; 85025; 93005; 99284; Q9967

== ENCOUNTER 2025-05-30 11:00 | Outpatient (RCR) | payer MEDICARE, SELFPAY | END 2025-05-30 23:59 | disposition home or self-care (01) | LOC: PT 11:00 | PROVIDERS: PCP Pediatrics; Visit Provider Otolaryngology | DX: H81.10 Benign paroxysmal vertigo, unspecified ear (principal); H91.91 Unspecified hearing loss, right ear; H54.61 Unqualified visual loss, right eye, normal vision left eye | CPT/HCPCS: 97163 ==